=== PATIENT | female | born 1945 | race American Indian/Alaskan Native ===

== ENCOUNTER 2018-05-06 16:07 | Inpatient (IN) | payer MEDICARE, MEDICAID ==
[2018-05-06 16:19] VITALS: BMI 18.5
--- NOTE | 2018-05-06 16:51 | ED PDOC ---
Arrival/HPI - General Chief Complaint: Hip Pain Time Seen by Provider: 05/06/18 16:29 Historian: Patient - History of Present Illness Narrative History of Present Illness (Text): 05/06/18 16:53 72 yo F w/ PMH of HTN and high cholesterol, reports that she fell out of bed last night. Patient states se does not know exactly how and why she fell, she was able to get up and back onto her bed. In the AM she called her son to bring her to the hospital, states that she mostly stayed in bed all day and waited for him to bring her to the ER, she states that she was able to get up and ambulate through her home using furniture to grab on to. She is c/o low back pain and pain to the R hip and thigh. Patient reports (-) lightheadedness, headache, chest pain, SOB or palpitations prior to fall. Patient states (-) LOC , (-) headache, (-) fever, (-) URI, (-) chest pain, (-) dyspnea, (-) abdominal pain, (-) vomiting, (-) diarrhea, (-) syncope, (-) GI bleeding, (-) urinary symptoms. Past Medical History - Tetanus Immunization Tetanus Immunization: Unknown - Cardiac Hx Hypertension: Yes - Neurological Hx Dementia: Yes - Psychiatric Hx Depression: No Hx Emotional Abuse: No Hx Physical Abuse: No Hx Substance Use: No - Past Surgical History Past Surgical History: No Previous - Suicidal Assessment Feels Threatened In Home Enviroment: No Family/Social History Family/Social History: Unknown Family HX Smoking Status: Never Smoked Hx Alcohol Use: No Hx Substance Use: No Allergies/Home Meds Allergies/Adverse Reactions: Allergies No Known Allergies Allergy (Verified 05/06/18 16:23) Home Medications: Home Meds Medication Instructions Recorded Confirmed Aricept 10 mg PO DAILY 11/27/13 01/02/14 Plavix 75 mg PO DAILY 11/27/13 01/02/14 Simvastatin 0 mg PO DAILY 11/27/13 01/02/14 amLODIPine 10 mg PO DAILY 11/27/13 01/02/14 Vitamin B Complex & Vitamin C 1 mg PO DAILY 01/02/14 01/02/14 [Strovite] Review of Systems - Review of Systems Constitutional: absent: Fatigue, Weight Change, Fevers Respiratory: absent: SOB, Cough Cardiovascular: absent: Chest Pain, Palpitations, Edema Gastrointestinal: absent: Abdominal Pain, Diarrhea, Vomiting Genitourinary Female: absent: Dysuria, Frequency Musculoskeletal: Arthralgias, Back Pain. absent: Neck Pain Skin: absent: Rash, Pruritis, Skin Lesions Neurological: absent: Headache, Dizziness Physical Exam Vital Signs Temp Pulse Resp BP Pulse Ox 05/06/18 19:01 58 L 19 179/76 H 99 05/06/18 17:59 62 17 195/99 H 98 05/06/18 16:18 98.7 F 66 16 188/101 H 96 Temperature: Afebrile Blood Pressure: Hypertensive Pulse: Regular Respiratory Rate: Normal Appearance: Positive for: Well-Appearing, Non-Toxic, Comfortable Pain Distress: Mild Mental Status: Positive for: Alert and Oriented X 3 - Systems Exam Head: Present: Atraumatic, Normocephalic Pupils: Present: PERRL Extroacular Muscles: Present: EOMI Conjunctiva: Present: Normal Mouth: Present: Moist Mucous Membranes Neck: Present: Normal Range of Motion. No: MIDLINE TENDERNESS, Paraspinal Tenderness Respiratory/Chest: Present: Clear to Auscultation, Good Air Exchange. No: Respiratory Distress, Accessory Muscle Use Cardiovascular: Present: Regular Rate and Rhythm, Normal S1, S2. No: Murmurs Abdomen: No: Tenderness, Distention, Peritoneal Signs Back: Present: Normal Inspection, Midline Tenderness (+tenderness to the L spine ) Upper Extremity: Present: Normal Inspection, Normal ROM, NORMAL PULSES, Capillary Refill < 2s. No: Cyanosis, Edema, Tenderness Lower Extremity: Present: Normal Inspection, Tenderness (+mild tenderness to the R hip amd medial R thigh with pain elicited with ROM of the R hip), Neurovascularly Intact, Capillary Refill < 2 s, Other (distal pulses weak). No : Edema Neurological: Present: GCS=15, CN II-XII Intact, Speech Normal, Motor Func Grossly Intact, Normal Sensory Function, Normal 2Pt Descrimination Skin: Present: Warm, Dry, Normal Color. No: Rashes Psychiatric: Present: Alert, Oriented x 3, Normal Insight, Normal Concentration Medical Decision Making ED Course and Treatment: 05/06/18 16:50 Plan : - IV - Labs - EKG - CXR - cleaner and trimmer - XR R hip / pelvis / femur - CT L spine EKG : SB at 58 bpm, LVH, diffuse T wave depression, which is not new and is old , present in last EKG done on 01/02/14, as read by PA. Labs reviewed : trop (-), CPK (-). XR R hip : +fracture of the R pubic ramus and R pubic symphysis, no hip fracture or dislocation, as read by PA XR R femur : +fracture of the R pubic ramus and R pubic symphysis, no hip fracture or dislocation, as read by PA CT L spine : no acute fracture of the L spine, as per radiology reading. XR results d/w patient and her family, notified of plan for need of admission. Case d/w Dr. David Zhu, agrees with plan for admission. Requesting for CT of the pelvis. Case d/w Dr. Forbes, agrees to admit the patient. 05/06/18 20:00 - Lab Interpretations Lab Results: 05/06/18 17:25 05/06/18 17:25 Lab Results 05/06/18 17:25: Blood Type O POSITIVE, Antibody Screen Negative, BBK History Checked No verified bt 05/06/18 17:25: PT 11.1, INR 1.0, APTT 37.7 H 05/06/18 17:25: Sodium 141, Potassium 4.1, Chloride 102, Carbon Dioxide 31 H, Anion Gap 12, BUN 22 H, Creatinine 0.8, Est GFR ( Amer) > 60, Est GFR ( Non-Af Amer) > 60, Random Glucose 111 H, Calcium 9.5, Total Bilirubin 0.7, AST 31, ALT 26, Alkaline Phosphatase 52, Total Creatine Kinase 98, Troponin I 0.0170 , Total Protein 7.5, Albumin 4.1, Globulin 3.4, Albumin/Globulin Ratio 1.2 05/06/18 17:25: WBC 11.3 H, RBC 4.16, Hgb 13.2, Hct 38.4, MCV 92.3, MCH 31.7 H, MCHC 34.3, RDW 13.3, Plt Count 132, MPV 10.4, Neut % (Auto) 79.8 H, Lymph % ( Auto) 10.9 L, [place] % (Auto) 8.3, Eos % (Auto) 0.2, Baso % (Auto) 0.8, Neut # ( Auto) 9.0 H, Lymph # (Auto) 1.2, [place] # (Auto) 0.9 H, Eos # (Auto) 0.0, Baso # ( Auto) 0.1 - RAD Interpretation Radiology Orders: 05/06/18 16:30 HIP MIN 2V W/ PELVIS RT [RAD] Stat 05/06/18 16:43 LUMBAR SPINE W/O CONTRAST [CT] Stat Femur Right [FEMUR MIN 2 VIEWS RT] [RAD] Stat 05/06/18 19:09 PELVIS W/O PO OR IV CONTRAST [CT] Stat - PA / [employer] / Resident Statement MD/DO has reviewed & agrees with the documentation as recorded. Disposition/Present on Arrival - Present on Arrival Any Indicators Present on Arrival: No History of DVT/PE: No History of Uncontrolled Diabetes: No Urinary Catheter: No History of Decub. Ulcer: No History Surgical Site Infection Following: None - Disposition Have Diagnosis and Disposition been Completed?: Yes Diagnosis: Pubic ramus fracture, Closed fracture of symphysis pubis Disposition Time: 19:00 Patient Plan: Admission Patient Problems: Current Active Problems Problem Status Onset Closed fracture of symphysis pubis Acute Pubic ramus fracture Acute Condition: STABLE
[2018-05-06 17:36] LABS: BASO # 0.1 K/uL (0.0-0.2); BASO % 0.8 % (0.0-2.0); EOS % 0.2 % (0.0-4.0); HEMOGLOBIN 13.2 g/dL (12.0-16.0); LYMPH # 1.2 K/uL (1.0-4.3); LYMPH % 10.9 % (20.0-40.0); MEAN CELL VOLUME 92.3 fl (81.0-99.0); MEAN CORPUSCULAR HEMOGLOBIN 31.7 pg (27.0-31.0); MEAN CORPUSCULAR HGB CONC 34.3 g/dL (33.0-37.0); MEAN PLATELET VOLUME 10.4 fl (7.2-11.7); MONO # 0.9 K/uL (0.0-0.8); MONO % 8.3 % (0.0-10.0); NEUT % 79.8 % (50.0-75.0); RBC 4.16 Mil/uL (3.80-5.20); RED CELL DISTRIBUTION WIDTH 13.3 % (11.5-14.5); WHITE BLOOD COUNT 11.3 K/uL (4.8-10.8)
[2018-05-06 17:46] LABS: ALB/GLOB RATIO 1.2 (1.0-2.1); ALBUMIN 4.1 g/dL (3.5-5.0); ALT/SGPT 26 U/L (9-52); AST/SGOT 31 U/L (14-36); BLOOD UREA NITROGEN 22 mg/dl (7-17); CALCIUM 9.5 mg/dL (8.4-10.2); GFR AFRICAN-AMERICAN > 60; GFR NON-AFRICAN AMERICAN > 60
[2018-05-06 17:47] LABS: PROTHROMBIN TIME 11.1 Seconds (9.8-13.1)
[2018-05-06 17:50] LABS: PARTIAL THROMBOPLASTIN TIME 37.7 Seconds (25.6-37.1)
--- NOTE | 2018-05-06 17:53 | RAD ---
Date of service: 05/06/2018 PROCEDURE: Right Femur Radiographs. HISTORY: pain COMPARISON: None. TECHNIQUE: AP and Lateral Radiographs of the right femur. FINDINGS: FEMUR: Normal. No fracture. Note is made of displaced fracture right superior pubic ramus, medially. There is fracture of the right pubic symphysis/ inferior pubic ramus. No left pelvic fracture appreciated. SOFT TISSUES: Normal. OTHER FINDINGS: None. IMPRESSION: Fracture right pelvic ring. No evidence of hip fracture.
--- NOTE | 2018-05-06 17:54 | RAD ---
PROCEDURE: Right Hip Radiographs. HISTORY: pain COMPARISON: None. FINDINGS: BONES: Displaced fracture right superior pubic ramus. Fracture right pubic symphysis with possible involvement of the inferior pubic ramus, medially. JOINTS: Normal. SOFT TISSUES: Normal. OTHER FINDINGS: None. IMPRESSION: Fracture right superior pubic ramus and right pubic symphysis.
--- NOTE | 2018-05-06 18:11 | CT ---
Date of service: 05/06/2018 PROCEDURE: CT Lumbar Spine without contrast HISTORY: low back pain, fall COMPARISON: None available. TECHNIQUE: Axial computed tomography images were obtained of the lumbar spine without the use of intravenous contrast. Coronal and sagittal reformatted images were created and reviewed. Radiation dose: Total exam DLP = 266.77 mGy-cm. This CT exam was performed using one or more of the following dose reduction techniques: Automated exposure control, adjustment of the mA and/or kV according to patient size, and/or use of iterative reconstruction technique. FINDINGS: VERTEBRAE: Vertebral bodies maintained in height. Normal alignment maintained. Transverse processes and posterior elements are intact. DISCS/SPINAL CANAL/NEURAL FORAMINA: L1-2: Unremarkable. L2-3: Unremarkable. L3-4: Unremarkable. L4-5: Unremarkable. L5-S1: Unremarkable. PARASPINAL SOFT TISSUES: Nonobstructing 3 mm left renal calculus. Bilateral renal vascular calcification. 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 OTHER FINDINGS: None. IMPRESSION: No evidence of fracture or degenerative disc disease. Nonobstructing 3 mm left renal calculus. 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
--- NOTE | 2018-05-07 07:10 | RAD ---
Date of service: 05/06/2018 PROCEDURE: CHEST RADIOGRAPH, 1 VIEW HISTORY: for admission COMPARISON: None available. FINDINGS: LUNGS: Clear. PLEURA: No pneumothorax or pleural fluid seen. CARDIOVASCULAR: Atherosclerotic aorta. . OSSEOUS STRUCTURES: No significant abnormalities. VISUALIZED UPPER ABDOMEN: Normal. OTHER FINDINGS: None. IMPRESSION: No active disease.
--- NOTE | 2018-05-07 07:53 | CARD ---
APPROVED REPORT Date of service: 05/06/2018 <Conclusion> Sinus bradycardia Left ventricular hypertrophy with repolarization abnormality Prolonged QT Abnormal ECG
--- NOTE | 2018-05-07 08:13 | CARD ---
APPROVED REPORT Date of service: 05/07/2018 <Conclusion> Sinus bradycardia Left ventricular hypertrophy with repolarization abnormality Abnormal ECG
--- NOTE | 2018-05-07 08:44 | CT ---
Date of service: 05/06/2018 PROCEDURE: CT Pelvis without contrast HISTORY: R pubic ramus fracture COMPARISON: None available. TECHNIQUE: Contiguous axial images of the pelvis . No intravenous or oral contrast given. Coronal and sagittal reformats generated. Radiation dose: Total exam DLP = mGy-cm. This CT exam was performed using one or more of the following dose reduction techniques: Automated exposure control, adjustment of the mA and/or kV according to patient size, and/or use of iterative reconstruction technique. FINDINGS: BLADDER: Unremarkable. No mass. REPRODUCTIVE ORGANS: Unremarkable. VISUALIZED BOWEL: Diverticulosis of the colon. PERITONEUM: Unremarkable, as visualized. No free fluid. No free air. LYMPH NODES: Unremarkable. No enlarged lymph nodes. BONES: Partially displaced fracture of the right superior pubic ramus with adjacent hyperdensity/ hemorrhagic content. Nondisplaced fracture of the right iliac bone extending to the sacroiliac joint. VASCULATURE: Unremarkable. OTHER FINDINGS: None. IMPRESSION: Partially displaced fracture of the right superior pubic ramus with adjacent hyperdensity/ hemorrhagic content. Nondisplaced fracture of the right iliac bone extending to the sacroiliac joint.
[2018-05-07 08:50] LABS: HEMOGLOBIN 13.3 g/dL (12.0-16.0); MEAN CELL VOLUME 92.3 fl (81.0-99.0); MEAN CORPUSCULAR HEMOGLOBIN 32.1 pg (27.0-31.0); MEAN CORPUSCULAR HGB CONC 34.8 g/dL (33.0-37.0); RBC 4.13 Mil/uL (3.80-5.20); RED CELL DISTRIBUTION WIDTH 13.6 % (11.5-14.5); WHITE BLOOD COUNT 8.4 K/uL (4.8-10.8)
[2018-05-07 08:52] LABS: ALB/GLOB RATIO 1.2 (1.0-2.1); ALBUMIN 3.9 g/dL (3.5-5.0); ALT/SGPT 25 U/L (9-52); AST/SGOT 30 U/L (14-36); BLOOD UREA NITROGEN 17 mg/dl (7-17); CALCIUM 9.2 mg/dL (8.4-10.2); GFR AFRICAN-AMERICAN > 60; GFR NON-AFRICAN AMERICAN > 60; HDL CHOLESTEROL 66 MG/DL (30-70)
[2018-05-07 08:59] LABS: LDL CHOLESTEROL 85 mg/dL (0-129)
[2018-05-07 09:04] LABS: T4 8.03 ug/dl (5.5-11.0)
[2018-05-07] MEDS: Multivitamin With Minerals Tab PO SCH (10:40)
--- NOTE | 2018-05-07 11:39 | CP.PCM.CON ---
History of Present Illness - History of Present Illness History of Present Illness: This 72-year-old hypertensive female who lives alone at home came to the emergency room after having fallen at home. She was on the floor for a prolonged period of time and was able to get help by calling her friends on the phone. She complains off pelvic pain but otherwise is able to move her extremities without any difficulty. She denies any history of diabetes or chest pain or myocardial infarction or symptoms of congestive cardiac failure. She quit smoking approximately 4 years back. Physical examination shows a thin built elderly female who is able to answer simple questions readily but appears slightly confused about the details of her recent past. She is able to lie virtually flat and breathe comfortably. Her respiratory rate was 16 breaths per minute and her heart rate was 70 bpm regular and her blood pressure was 164/70 mmHg. Her jugular venous pressure was not elevated and there was no edema over lower approximately. The pedal pulses were well felt. There were no carotid bruits. There was tenderness in the suprapubic and pubic area. She was able to move her extremities readily. Movement of the right leg produced hip pain. The apex was not palpable. The first and second heart sounds were normal. There was no murmur or gallop. There were no rales. Her electrocardiogram showed sinus rhythm with a pattern of left ventricular hypertrophy also confirmed by the echocardiogram which revealed significant LVH with preserved left ventricle systolic function and depressed diastolic compliance. Her lab data was noted. Pressure: Fall with fractured pubic ramus (right side), hypertension. The patient is stable from cardiovascular point of view. It appears this was not patient's post fall. If Plavix is not indicated in this patient it poses significant risk of intracranial bleeding with a fall. It should then be discontinued. Past Patient History - Tetanus Immunizations Tetanus Immunization: Unknown - Past Medical History & Family History Past Medical History?: Yes - Past Social History Smoking Status: Never Smoked - CARDIAC Hx Cardiac Disorders: Yes Hx Hypercholesterolemia: Yes Hx Hypertension: Yes - PULMONARY Hx Respiratory Disorders: No - NEUROLOGICAL Hx Neurological Disorder: Yes Hx Dementia: Yes - HEENT Hx HEENT Problems: Yes - RENAL Hx Chronic Kidney Disease: No - ENDOCRINE/METABOLIC Hx Endocrine Disorders: No - HEMATOLOGICAL/ONCOLOGICAL Hx Blood Disorders: No - INTEGUMENTARY Hx Dermatological Problems: No - MUSCULOSKELETAL/RHEUMATOLOGICAL Hx Musculoskeletal Disorders: Yes Hx Back Pain: Yes Hx Falls: Yes - GASTROINTESTINAL Hx Gastrointestinal Disorders: No - GENITOURINARY/GYNECOLOGICAL Hx Genitourinary Disorders: Yes Hx Incontinence: Yes - PSYCHIATRIC Hx Psychophysiologic Disorder: Yes (DEMENTIA) Hx Substance Use: No - SURGICAL HISTORY Hx Surgeries: No - ANESTHESIA Hx Anesthesia: No Hx Anesthesia Reactions: No Hx Malignant Hyperthermia: No Has any member of the family had a problem w/ anesthesia?: No Meds Allergies/Adverse Reactions: Allergies Allergy/AdvReac Type Severity Reaction Status Date / Time No Known Allergies Allergy Verified 05/06/18 16:23 - Medications Medications: Current Medications Amlodipine Besylate (Norvasc) 10 mg PO DAILY [facility] Last Admin: 05/07/18 10:40 Dose: 10 mg Atorvastatin Calcium (Lipitor) 10 mg PO HS [facility] Clopidogrel Bisulfate (Plavix) 75 mg PO DAILY [facility] Last Admin: 05/07/18 10:40 Dose: 75 mg Donepezil HCl (Aricept) 10 mg PO HS [facility] Hydrochlorothiazide (Microzide) 12.5 mg PO DAILY [facility] Multivitamins/Minerals (Therapeutic-M Tab) 1 tab PO DAILY [facility] Last Admin: 05/07/18 10:40 Dose: 1 tab Results - Vital Signs Recent Vital Signs: Last Vital Signs Temp 98.3 F 05/07/18 08:15 Pulse 59 L 05/07/18 10:40 Resp 18 05/07/18 08:15 BP 146/80 05/07/18 10:40 Pulse Ox 98 05/07/18 08:15 - Labs Result Diagrams: 05/07/18 07:41 05/07/18 07:41 Labs: Laboratory Results - last 24 hr 05/06/18 05/06/18 05/06/18 17:25 17:25 17:25 WBC 11.3 H RBC 4.16 Hgb 13.2 Hct 38.4 MCV 92.3 MCH 31.7 H MCHC 34.3 RDW 13.3 Plt Count 132 MPV 10.4 Neut % (Auto) 79.8 H Lymph % (Auto) 10.9 L [place] % (Auto) 8.3 Eos % (Auto) 0.2 Baso % (Auto) 0.8 Neut # (Auto) 9.0 H Lymph # (Auto) 1.2 [place] # (Auto) 0.9 H Eos # (Auto) 0.0 Baso # (Auto) 0.1 PT 11.1 INR 1.0 APTT 37.7 H Sodium 141 Potassium 4.1 Chloride 102 Carbon Dioxide 31 H Anion Gap 12 BUN 22 H Creatinine 0.8 Est GFR ( Amer) > 60 Est GFR (Non-Af Amer) > 60 Random Glucose 111 H Calcium 9.5 Total Bilirubin 0.7 AST 31 ALT 26 Alkaline Phosphatase 52 Total Creatine Kinase 98 Troponin I 0.0170 Total Protein 7.5 Albumin 4.1 Globulin 3.4 Albumin/Globulin Ratio 1.2 Triglycerides Cholesterol LDL Cholesterol Direct HDL Cholesterol Thyroxine (T4) TSH 3rd Generation Blood Type Antibody Screen BBK History Checked 05/06/18 05/07/18 05/07/18 17:25 01:04 07:41 WBC 8.4 RBC 4.13 Hgb 13.3 Hct 38.2 MCV 92.3 MCH 32.1 H MCHC 34.8 RDW 13.6 Plt Count 137 MPV Neut % (Auto) Lymph % (Auto) [place] % (Auto) Eos % (Auto) Baso % (Auto) Neut # (Auto) Lymph # (Auto) [place] # (Auto) Eos # (Auto) Baso # (Auto) PT INR APTT Sodium Potassium Chloride Carbon Dioxide Anion Gap BUN Creatinine Est GFR ( Amer) Est GFR (Non-Af Amer) Random Glucose Calcium Total Bilirubin AST ALT Alkaline Phosphatase Total Creatine Kinase Troponin I 0.0220 Total Protein Albumin Globulin Albumin/Globulin Ratio Triglycerides Cholesterol LDL Cholesterol Direct HDL Cholesterol Thyroxine (T4) TSH 3rd Generation Blood Type O POSITIVE Antibody Screen Negative BBK History Checked No verified bt 05/07/18 05/07/18 07:41 08:45 WBC RBC Hgb Hct MCV MCH MCHC RDW Plt Count MPV Neut % (Auto) Lymph % (Auto) [place] % (Auto) Eos % (Auto) Baso % (Auto) Neut # (Auto) Lymph # (Auto) [place] # (Auto) Eos # (Auto) Baso # (Auto) PT INR APTT Sodium 140 Potassium 4.1 Chloride 101 Carbon Dioxide 33 H Anion Gap 10 BUN 17 Creatinine 0.8 Est GFR ( Amer) > 60 Est GFR (Non-Af Amer) > 60 Random Glucose 96 Calcium 9.2 Total Bilirubin 1.3 AST 30 ALT 25 Alkaline Phosphatase 52 Total Creatine Kinase Troponin I 0.0210 Total Protein 7.2 Albumin 3.9 Globulin 3.3 Albumin/Globulin Ratio 1.2 Triglycerides 89 Cholesterol 198 LDL Cholesterol Direct 85 HDL Cholesterol 66 Thyroxine (T4) 8.03 TSH 3rd Generation 0.81 Blood Type Antibody Screen BBK History Checked
--- NOTE | 2018-05-07 14:43 | CP.PCM.HP ---
History of Present Illness - History of Present Illness History of Present Illness: CC: Fall/trauma. 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 Pt stated; She was trying to get out of bed to the bathroom when she fell in in the ground hitting her left side of body ( L hip, lower back, and lower L leg) . Pt came c/o of pain in these 3 sites, but grater in her L hip, described as constant , aching, moderate to severe intensity 6-8:10. Worsening symptoms: Non displaced Fx of the R Iliac bone extending to the sacroiliac joint, found in Pelvis CT. Aggravated factor: Movements/Exercise Pt denied: Fever, chills, n/v/d, abdominal pain, urinary symptoms, CP, palpitations, SOB, cough, sick contact, recent travel out of [place]. Present on Admission - Present on Admission Any Indicators Present on Admission: No Review of Systems - Constitutional Constitutional: Weakness - EENT Eyes: Requires Corrective Lenses Ears: Other (negative) Nose/Mouth/Throat: Other (negative) - Cardiovascular Cardiovascular: Other (negative) - Respiratory Respiratory: Other (negative) - Gastrointestinal Gastrointestinal: Other (negative) - Genitourinary Genitourinary: Urinary Incontinence - Musculoskeletal Musculoskeletal: Back Pain - Integumentary Integumentary: Erythema (sacrum) - Neurological Neurological: Weakness - Psychiatric Psychiatric: Memory Loss (mild) - Endocrine Endocrine: Other (negative) - Hematologic/Lymphatic Hematologic: Other (negative) Past Patient History - Tetanus Immunizations Tetanus Immunization: Unknown - Past Medical History & Family History Past Medical History?: Yes Pertinent Family History: Unknown - Past Social History Smoking Status: Never Smoked Alcohol: None Drugs: Denies Home Situation {Lives}: Alone - CARDIAC Hx Cardiac Disorders: Yes Hx Hypercholesterolemia: Yes Hx Hypertension: Yes - PULMONARY Hx Respiratory Disorders: No - NEUROLOGICAL Hx Neurological Disorder: Yes Hx Dementia: Yes - HEENT Hx HEENT Problems: Yes - RENAL Hx Chronic Kidney Disease: No - ENDOCRINE/METABOLIC Hx Endocrine Disorders: No - HEMATOLOGICAL/ONCOLOGICAL Hx Blood Disorders: No - INTEGUMENTARY Hx Dermatological Problems: No - MUSCULOSKELETAL/RHEUMATOLOGICAL Hx Musculoskeletal Disorders: Yes Hx Back Pain: Yes Hx Falls: Yes - GASTROINTESTINAL Hx Gastrointestinal Disorders: No - GENITOURINARY/GYNECOLOGICAL Hx Genitourinary Disorders: Yes Hx Incontinence: Yes - PSYCHIATRIC Hx Psychophysiologic Disorder: Yes (DEMENTIA) Hx Substance Use: No - SURGICAL HISTORY Hx Surgeries: No - ANESTHESIA Hx Anesthesia: No Hx Anesthesia Reactions: No Hx Malignant Hyperthermia: No Has any member of the family had a problem w/ anesthesia?: No Meds Allergies/Adverse Reactions: Allergies Allergy/AdvReac Type Severity Reaction Status Date / Time No Known Allergies Allergy Verified 05/06/18 16:23 Physical Exam - Constitutional Appears: No Acute Distress - Head Exam Head Exam: NORMAL INSPECTION - Eye Exam Eye Exam: PERRL - ENT Exam ENT Exam: Normal Oropharynx - Neck Exam Neck exam: Positive for: Normal Inspection - Respiratory Exam Respiratory Exam: NORMAL BREATHING PATTERN - Cardiovascular Exam Cardiovascular Exam: REGULAR RHYTHM - GI/Abdominal Exam GI & Abdominal Exam: Normal Bowel Sounds, Soft - Extremities Exam Extremities exam: Positive for: tenderness (mild R hip) Additional comments: Decreased ROM R leg 2nd to hip Fx. - Back Exam Back exam: tenderness (midline) - Neurological Exam Neurological exam: Alert, CN II-XII Intact, Oriented x3 - Psychiatric Exam Psychiatric exam: Normal Mood - Skin Skin Exam: Normal Color, Warm Results - Vital Signs Recent Vital Signs: Last Vital Signs Temp 98.3 F 05/07/18 08:15 Pulse 59 L 05/07/18 10:40 Resp 18 05/07/18 08:15 BP 146/80 05/07/18 10:40 Pulse Ox 98 05/07/18 08:15 reviewed J.PLety - Labs Result Diagrams: 05/07/18 07:41 05/07/18 07:41 Labs: Laboratory Results - last 24 hr 05/06/18 05/06/18 05/06/18 17:25 17:25 17:25 WBC 11.3 H RBC 4.16 Hgb 13.2 Hct 38.4 MCV 92.3 MCH 31.7 H MCHC 34.3 RDW 13.3 Plt Count 132 MPV 10.4 Neut % (Auto) 79.8 H Lymph % (Auto) 10.9 L Craven % (Auto) 8.3 Eos % (Auto) 0.2 Baso % (Auto) 0.8 Neut # (Auto) 9.0 H Lymph # (Auto) 1.2 Craven # (Auto) 0.9 H Eos # (Auto) 0.0 Baso # (Auto) 0.1 PT 11.1 INR 1.0 APTT 37.7 H Sodium 141 Potassium 4.1 Chloride 102 Carbon Dioxide 31 H Anion Gap 12 BUN 22 H Creatinine 0.8 Est GFR ( Amer) > 60 Est GFR (Non-Af Amer) > 60 Random Glucose 111 H Calcium 9.5 Total Bilirubin 0.7 AST 31 ALT 26 Alkaline Phosphatase 52 Total Creatine Kinase 98 Troponin I 0.0170 Total Protein 7.5 Albumin 4.1 Globulin 3.4 Albumin/Globulin Ratio 1.2 Triglycerides Cholesterol LDL Cholesterol Direct HDL Cholesterol Thyroxine (T4) TSH 3rd Generation Blood Type Antibody Screen BBK History Checked 05/06/18 05/07/18 05/07/18 17:25 01:04 07:41 WBC 8.4 RBC 4.13 Hgb 13.3 Hct 38.2 MCV 92.3 MCH 32.1 H MCHC 34.8 RDW 13.6 Plt Count 137 MPV Neut % (Auto) Lymph % (Auto) Craven % (Auto) Eos % (Auto) Baso % (Auto) Neut # (Auto) Lymph # (Auto) Craven # (Auto) Eos # (Auto) Baso # (Auto) PT INR APTT Sodium Potassium Chloride Carbon Dioxide Anion Gap BUN Creatinine Est GFR ( Amer) Est GFR (Non-Af Amer) Random Glucose Calcium Total Bilirubin AST ALT Alkaline Phosphatase Total Creatine Kinase Troponin I 0.0220 Total Protein Albumin Globulin Albumin/Globulin Ratio Triglycerides Cholesterol LDL Cholesterol Direct HDL Cholesterol Thyroxine (T4) TSH 3rd Generation Blood Type O POSITIVE Antibody Screen Negative BBK History Checked No verified bt 05/07/18 05/07/18 07:41 08:45 WBC RBC Hgb Hct MCV MCH MCHC RDW Plt Count MPV Neut % (Auto) Lymph % (Auto) Craven % (Auto) Eos % (Auto) Baso % (Auto) Neut # (Auto) Lymph # (Auto) Craven # (Auto) Eos # (Auto) Baso # (Auto) PT INR APTT Sodium 140 Potassium 4.1 Chloride 101 Carbon Dioxide 33 H Anion Gap 10 BUN 17 Creatinine 0.8 Est GFR ( Amer) > 60 Est GFR (Non-Af Amer) > 60 Random Glucose 96 Calcium 9.2 Total Bilirubin 1.3 AST 30 ALT 25 Alkaline Phosphatase 52 Total Creatine Kinase Troponin I 0.0210 Total Protein 7.2 Albumin 3.9 Globulin 3.3 Albumin/Globulin Ratio 1.2 Triglycerides 89 Cholesterol 198 LDL Cholesterol Direct 85 HDL Cholesterol 66 Thyroxine (T4) 8.03 TSH 3rd Generation 0.81 Blood Type Antibody Screen BBK History Checked reviewed J.P. - EKG Data EKG comments: reviewed J.P. - Imaging and Cardiology Chest x-ray Status: Report reviewed by me (J.P.) CT scan - pelvis Status: Report reviewed by me (J.P.) Additional comment: Hip & Pelvis X-Ray Reviewed J.P. Lumbar Spine X-Ray: Reviewed J.P. Femur X-Ray: Reviewed J.P. Echo: Reviewed J.P. Assessment & Plan (1) Acute right hip pain Status: Acute Priority: High Comment: 2nd to fx. (2) Closed fracture of symphysis pubis Status: Acute Priority: High (3) Pubic ramus fracture Status: Acute Priority: High (4) Status post fall Status: Acute Priority: High (5) Pain of multiple sites Status: Acute Priority: High (6) HTN (hypertension) Status: Chronic Priority: Medium (7) Dementia Status: Chronic Priority: Medium - Assessment and Plan (Free Text) Plan: F/U U C-S, continue Percocet, Norvasc, Microzide, Plavix and rest of Tx. Cardiology consult appreciated. - Date & Time Date: 05/07/18 Time: 13:45
--- NOTE | 2018-05-07 16:56 | CARD ---
APPROVED REPORT Date of service: 05/07/2018 EXAM: Two-dimensional and M-mode echocardiogram with Doppler and color Doppler. INDICATION Pre-Op 2D DIMENSIONS IVSd1.65 (0.7-1.1cm)LVDd3.12 (3.9-5.9cm) LVOT Diameter2.00 (1.8-2.4cm)PWd1.13 (0.7-1.1cm) LVDs1.20 (2.5-4.0cm)FS (%) 61.4 % M-Mode DIMENSIONS Left Atrium (MM)5.01 (2.5-4.0cm)Aortic Root3.45 (2.2-3.7cm) Aortic Cusp Exc.2.10 (1.5-2.0cm) Aortic Valve AoV Peak Ckljduop322.1cm/sAoV VTI31.8cmAO Peak GR.16mmHg LVOT Peak Lyefglvb071.2cm/sLVOT VTI24.37cmAO Mean GR.7mmHg RHEA (VMAX)1.94ip5KSG (VTI)1.77cm2 Mitral Valve MV E Tknlprjy63.9cm/sMV DECEL AUPS078ejPG A Aifgmygs50.4cm/s MV OKD56faM/A ratio0.7MVA (PHT)2.79cm2 TDI Lateral E' Peak V4.89cm/sE/Lateral E'14.1E/Medial E'0.0 Tricuspid Valve TR Peak Pglhiqzk446hw/sRAP YWEATHEH66mfRvXI Peak Gr.28mmHg [id number] LEFT VENTRICLE The left ventricle is normal size. There is moderate concentric left ventricular hypertrophy. Left ventricular systolic function is normal with EF 65-70%. There is normal LV segmental wall motion. Tissue Doppler imaging reveals mild left ventricular diastolic dysfunction. Transmitral Doppler flow pattern is Grade I-abnormal relaxation pattern. The left atrial pressure is mildly elevated. ATRIA Left atrium is mildly dilated. The right atrium size is normal. AORTIC VALVE The aortic valve is normal in structure. No aortic regurgitation is present. There is no aortic valvular stenosis. MITRAL VALVE The mitral valve is normal in structure. There is no mitral valve stenosis. There is physiologic mitral valve regurgitation. TRICUSPID VALVE The tricuspid valve is normal in structure. There is physiologic tricuspid valve regurgitation. Right ventricular systolic pressure is normal. There is no pulmonary hypertension. PULMONIC VALVE The pulmonary valve is normal in structure. There is physiologic pulmonic valvular regurgitation. GREAT VESSELS The aortic root is normal in size. Visualized portion of ascending aorta is normal in caliber. Pulmonary artery is normal in caliber. IVC is normal in size. PERICARDIAL EFFUSION There is no pericardial effusion. <Conclusion> There is moderate concentric left ventricular hypertrophy. Left ventricular systolic function is normal with EF 65-70%. Transmitral Doppler flow pattern is Grade I-abnormal relaxation pattern. Left atrium is mildly dilated. Right ventricular systolic pressure is normal.
[2018-05-07] MEDS: Oxycodone/Acetaminophen 5/325 mg Tab PO PRN (17:38)
[2018-05-08] MEDS: Oxycodone/Acetaminophen 5/325 mg Tab PO PRN ×2 (04:25→14:36)
[2018-05-08] MEDS: Multivitamin With Minerals Tab PO SCH (09:10)
--- NOTE | 2018-05-08 14:14 | CP.PCM.PN ---
Subjective - Date & Time of Evaluation Date of Evaluation: 05/08/18 Time of Evaluation: 10:30 - Subjective Subjective: F/U R Hip Fx. R hip and R thigh pain. Objective - Vital Signs/Intake and Output Vital Signs (last 24 hours): Temp Pulse Resp BP Pulse Ox 98.5 F 60 19 133/76 95 05/08/18 07:28 05/08/18 09:10 05/08/18 07:28 05/08/18 09:10 05/08/18 07:28 - Medications Medications: Current Medications Amlodipine Besylate (Norvasc) 10 mg PO DAILY [facility] Last Admin: 05/08/18 09:10 Dose: 10 mg Atorvastatin Calcium (Lipitor) 10 mg PO HS [facility] Last Admin: 05/07/18 22:09 Dose: 10 mg Clopidogrel Bisulfate (Plavix) 75 mg PO DAILY [facility] Last Admin: 05/08/18 09:10 Dose: 75 mg Donepezil HCl (Aricept) 10 mg PO HS [facility] Last Admin: 05/07/18 22:09 Dose: 10 mg Hydrochlorothiazide (Microzide) 12.5 mg PO DAILY [facility] Last Admin: 05/08/18 09:10 Dose: 12.5 mg Multivitamins/Minerals (Therapeutic-M Tab) 1 tab PO DAILY [facility] Last Admin: 05/08/18 09:10 Dose: 1 tab Oxycodone/Acetaminophen (Percocet 5/325 Mg Tab) 1 tab PO Q4 PRN PRN Reason: Pain, moderate (4-7) Stop: 05/10/18 16:55 Last Admin: 05/08/18 04:25 Dose: 1 tab - Labs Labs: 05/07/18 07:41 05/07/18 07:41 PT 11.1 Seconds (9.8-13.1) 05/06/18 17:25 INR 1.0 05/06/18 17:25 APTT 37.7 Seconds (25.6-37.1) H 05/06/18 17:25 - Constitutional Appears: No Acute Distress - Head Exam Head Exam: NORMAL INSPECTION - Eye Exam Eye Exam: PERRL - ENT Exam ENT Exam: Normal Oropharynx - Neck Exam Neck Exam: Normal Inspection - Respiratory Exam Respiratory Exam: Clear to Ausculation Bilateral - Cardiovascular Exam Cardiovascular Exam: REGULAR RHYTHM - GI/Abdominal Exam GI & Abdominal Exam: Soft, Normal Bowel Sounds - Extremities Exam Additional comments: R hip Fx, decreased ROM R leg 2nd to Fx. - Neurological Exam Neurological Exam: Alert, CN II-XII Intact, Oriented x3 - Psychiatric Exam Psychiatric exam: Normal Mood - Skin Skin Exam: Warm Assessment and Plan (1) Acute right hip pain Status: Acute (2) Closed fracture of symphysis pubis Status: Acute (3) Pubic ramus fracture Status: Acute (4) Status post fall Status: Acute (5) Pain of multiple sites Status: Acute (6) HTN (hypertension) Status: Chronic (7) Dementia Status: Chronic - Assessment and Plan (Free Text) Plan: Continue Percocet, Plavix, Lovenox, Norvasc, Lipitor and rest of Tx. Orthopedic consult appreciated.
[2018-05-09] MEDS: Oxycodone/Acetaminophen 5/325 mg Tab PO PRN ×2 (05:09→17:40)
[2018-05-09 07:56] VITALS: RESP 20
[2018-05-09] MEDS: Multivitamin With Minerals Tab PO SCH (09:41)
--- NOTE | 2018-05-09 13:06 | CP.PCM.CON ---
History of Present Illness - History of Present Illness History of Present Illness: Orthopedic consultation Patient is a 72 y/o female with PMH of dementia, HTN, hypercholesterolemia c/o right groin pain following a fall at home [address] Ngo was consulted for orthopedic evaluation. She is a poor historian but notes that she fell at home onto her right side while getting out of her bed to go to the bathroom. She denies dizziness and LOC but experienced severe pain to her right groin. She was brought to the [facility] ER by her son for evaluation. Currently her pain is mild, controlled with pain medications. The pain is intermittent, dull in quality and located at the right groin. The pain worsens with movement and alleviates with rest. She denies radiation of pain, numbness or tingling. She also denies CP/SOB/N/V/D/fever/GIBBS/dysuria/melena. Review of Systems - Review of Systems All systems: reviewed and no additional remarkable complaints except Review of Systems: as per HPI Past Patient History - Tetanus Immunizations Tetanus Immunization: Unknown - Past Medical History & Family History Past Medical History?: Yes Past Family History: Reviewed and not pertinent - Past Social History Smoking Status: Never Smoked Alcohol: None Drugs: Denies Home Situation {Lives}: Alone - CARDIAC Hx Cardiac Disorders: Yes Hx Hypercholesterolemia: Yes Hx Hypertension: Yes - PULMONARY Hx Respiratory Disorders: No - NEUROLOGICAL Hx Neurological Disorder: Yes Hx Dementia: Yes - HEENT Hx HEENT Problems: No - RENAL Hx Chronic Kidney Disease: No - ENDOCRINE/METABOLIC Hx Endocrine Disorders: No - HEMATOLOGICAL/ONCOLOGICAL Hx Blood Disorders: No - INTEGUMENTARY Hx Dermatological Problems: No - MUSCULOSKELETAL/RHEUMATOLOGICAL Hx Musculoskeletal Disorders: Yes Hx Back Pain: Yes Hx Falls: Yes - GASTROINTESTINAL Hx Gastrointestinal Disorders: No - GENITOURINARY/GYNECOLOGICAL Hx Genitourinary Disorders: Yes Hx Incontinence: Yes - PSYCHIATRIC Hx Psychophysiologic Disorder: Yes (DEMENTIA) Hx Substance Use: No - SURGICAL HISTORY Hx Surgeries: No - ANESTHESIA Hx Anesthesia: No Hx Anesthesia Reactions: No Hx Malignant Hyperthermia: No Has any member of the family had a problem w/ anesthesia?: No Meds Home Medications: Home Medication List Medication Instructions Recorded Confirmed Type Enoxaparin [Lovenox] 40 mg SC DAILY syr 05/09/18 Rx hydroCHLOROthiazide [Microzide] 12.5 mg PO DAILY cap 05/09/18 Rx oxyCODONE/Acetaminophen [Percocet 1 tab PO Q4 PRN #5 tab 05/09/18 Rx 5/325 mg Tab] Allergies/Adverse Reactions: Allergies Allergy/AdvReac Type Severity Reaction Status Date / Time No Known Allergies Allergy Verified 05/09/18 18:04 - Medications Medications: Current Medications Amlodipine Besylate (Norvasc) 10 mg PO DAILY [facility] Last Admin: 05/09/18 09:41 Dose: 10 mg Atorvastatin Calcium (Lipitor) 10 mg PO [facility] Last Admin: 05/08/18 21:28 Dose: 10 mg Clopidogrel Bisulfate (Plavix) 75 mg PO DAILY [facility] Last Admin: 05/09/18 09:41 Dose: 75 mg Donepezil HCl (Aricept) 10 mg PO [facility] Last Admin: 05/08/18 21:28 Dose: 10 mg Hydrochlorothiazide (Microzide) 12.5 mg PO DAILY [facility] Last Admin: 05/09/18 09:40 Dose: 12.5 mg Multivitamins/Minerals (Therapeutic-M Tab) 1 tab PO DAILY [facility] Last Admin: 05/09/18 09:41 Dose: 1 tab Oxycodone/Acetaminophen (Percocet 5/325 Mg Tab) 1 tab PO Q4 PRN PRN Reason: Pain, moderate (4-7) Stop: 05/10/18 16:55 Last Admin: 05/09/18 05:09 Dose: 1 tab Physical Exam - Constitutional Appears: Well, No Acute Distress - Head Exam Head Exam: ATRAUMATIC, NORMOCEPHALIC - Eye Exam Eye Exam: EOMI, Normal appearance, PERRL - ENT Exam ENT Exam: Mucous Membranes Moist - Respiratory Exam Respiratory Exam: Clear to Auscultation Bilateral, NORMAL BREATHING PATTERN - Cardiovascular Exam Cardiovascular Exam: REGULAR RHYTHM - GI/Abdominal Exam GI & Abdominal Exam: Normal Bowel Sounds, Soft - Extremities Exam Additional comments: Right hip: lateral hip and groin tenderness ROM restricted secondary to pain sensation intact SP/DP/TN motor intact EHL/FHL/TA/G pedal pulses intact comps soft/NT Left hip: no tenderness FROM sensation intact SP/DP/TN motor intact EHL/FHL/TA/G pedal pulses intact comps soft/NT - Neurological Exam Neurological exam: Alert Additional comments: oriented to person and place. not oriented to time - Psychiatric Exam Psychiatric exam: Normal Affect, Normal Mood - Skin Skin Exam: Normal Color, Warm Results - Vital Signs Recent Vital Signs: Last Vital Signs Temp 98.5 F 05/09/18 07:55 Pulse 62 05/09/18 09:41 Resp 20 05/09/18 07:55 BP 147/80 05/09/18 09:41 Pulse Ox 97 05/09/18 07:55 - Labs Result Diagrams: 05/07/18 07:41 05/07/18 07:41 Assessment & Plan (1) Pubic ramus fracture Assessment and Plan: Patient is a 72 y/o female with a displaced R superior pubic ramus fracture and ND R iliac bone fracture -pain control -PT/OT NWB RLE -DVT ppx, recommend IVC filter -orthopedically stable to d/c to rehab -above d/w Dr. Ngo in agreement Status: Acute Priority: High Radiology Interpretation - Notes: Notes:: Accession No. : [id number] Patient Name / ID : STARLA PRINCE / [id number] Exam Date : 05/06/2018 16:43:25 ( Approved ) Study Comment : Sex / Age : F / 72Y Creator : David Menendez MD Dictator : David Menendez MD Club Steward : Carding Supervisor : David Menendez MD Approver2 : Report Date : 05/06/2018 17:52:25 My Comment : PROCEDURE: Right Hip Radiographs. HISTORY: pain COMPARISON: None. FINDINGS: BONES: Displaced fracture right superior pubic ramus. Fracture right pubic symphysis with possible involvement of the inferior pubic ramus, medially. JOINTS: Normal. SOFT TISSUES: Normal. OTHER FINDINGS: None. IMPRESSION: Fracture right superior pubic ramus and right pubic symphysis. - Radiology Interpretation #2 Interpretation: Accession No. : [id number] Patient Name / ID : STARLA PRINCE / [id number] Exam Date : 05/06/2018 19:40:45 ( Approved ) Study Comment : Sex / Age : F / 72Y Creator : Alonzo Macias MD Dictator : Alonzo Macias MD Club Steward : Carding Supervisor : Alonzo Macias MD Approver2 : Report Date : 05/07/2018 08:43:32 My Comment : Date of service: 05/06/2018 PROCEDURE: CT Pelvis without contrast HISTORY: R pubic ramus fracture COMPARISON: None available. TECHNIQUE: Contiguous axial images of the pelvis . No intravenous or oral contrast given. Coronal and sagittal reformats generated. Radiation dose: Total exam DLP = mGy-cm. This CT exam was performed using one or more of the following dose reduction techniques: Automated exposure control, adjustment of the mA and/or kV according to patient size, and/or use of iterative reconstruction technique. FINDINGS: BLADDER: Unremarkable. No mass. REPRODUCTIVE ORGANS: Unremarkable. VISUALIZED BOWEL: Diverticulosis of the colon. PERITONEUM: Unremarkable, as visualized. No free fluid. No free air. LYMPH NODES: Unremarkable. No enlarged lymph nodes. BONES: Partially displaced fracture of the right superior pubic ramus with adjacent hyperdensity/ hemorrhagic content. Nondisplaced fracture of the right iliac bone extending to the sacroiliac joint. VASCULATURE: Unremarkable. OTHER FINDINGS: None. IMPRESSION: Partially displaced fracture of the right superior pubic ramus with adjacent hyperdensity/ hemorrhagic content. Nondisplaced fracture of the right iliac bone extending to the sacroiliac joint.
--- NOTE | 2018-05-09 13:44 | CP.PCM.PN ---
Subjective - Date & Time of Evaluation Date of Evaluation: 05/09/18 Time of Evaluation: 13:30 Objective - Vital Signs/Intake and Output Vital Signs (last 24 hours): Temp Pulse Resp BP Pulse Ox 98.5 F 62 20 147/80 97 05/09/18 07:55 05/09/18 09:41 05/09/18 07:55 05/09/18 09:41 05/09/18 07:55 - Medications Medications: Current Medications Amlodipine Besylate (Norvasc) 10 mg PO DAILY [facility] Last Admin: 05/09/18 09:41 Dose: 10 mg Atorvastatin Calcium (Lipitor) 10 mg PO HS [facility] Last Admin: 05/08/18 21:28 Dose: 10 mg Clopidogrel Bisulfate (Plavix) 75 mg PO DAILY [facility] Last Admin: 05/09/18 09:41 Dose: 75 mg Donepezil HCl (Aricept) 10 mg PO HS [facility] Last Admin: 05/08/18 21:28 Dose: 10 mg Enoxaparin Sodium (Lovenox) 40 mg SC DAILY [facility] PRN Reason: Protocol Hydrochlorothiazide (Microzide) 12.5 mg PO DAILY [facility] Last Admin: 05/09/18 09:40 Dose: 12.5 mg Multivitamins/Minerals (Therapeutic-M Tab) 1 tab PO DAILY [facility] Last Admin: 05/09/18 09:41 Dose: 1 tab Oxycodone/Acetaminophen (Percocet 5/325 Mg Tab) 1 tab PO Q4 PRN PRN Reason: Pain, moderate (4-7) Stop: 05/10/18 16:55 Last Admin: 05/09/18 05:09 Dose: 1 tab - Labs Labs: 05/07/18 07:41 05/07/18 07:41 PT 11.1 Seconds (9.8-13.1) 05/06/18 17:25 INR 1.0 05/06/18 17:25 APTT 37.7 Seconds (25.6-37.1) H 05/06/18 17:25 - Constitutional Appears: No Acute Distress - Head Exam Head Exam: NORMAL INSPECTION - Eye Exam Eye Exam: PERRL - ENT Exam ENT Exam: Normal Exam - Neck Exam Neck Exam: Normal Inspection - Respiratory Exam Respiratory Exam: NORMAL BREATHING PATTERN - Cardiovascular Exam Cardiovascular Exam: REGULAR RHYTHM - GI/Abdominal Exam GI & Abdominal Exam: Soft, Normal Bowel Sounds - Extremities Exam Extremities Exam: Tenderness (mild R hip) Additional comments: Decreased ROM R leg 2nd to Fx. - Neurological Exam Neurological Exam: Alert, CN II-XII Intact, Oriented x3 - Psychiatric Exam Psychiatric exam: Normal Mood - Skin Skin Exam: Normal Color, Warm Assessment and Plan (1) Acute right hip pain Status: Acute (2) Closed fracture of symphysis pubis Status: Acute (3) Pubic ramus fracture Status: Acute (4) Status post fall Status: Acute (5) Pain of multiple sites Status: Acute (6) HTN (hypertension) Status: Chronic (7) Dementia Status: Chronic
[2018-05-09] MEDS ORDERED: Enoxaparin 40 mg Syringe SC SCH (15:00)
[2018-05-09 16:06] VITALS: BP 169/83; PULSE 81; TEMP 98.3; O2SAT 96
--- NOTE | 2018-05-09 16:06 | US ---
Date of service: 05/09/2018 PROCEDURE: Bilateral lower extremity venous duplex Doppler. HISTORY: R/O DVT COMPARISON: None available. TECHNIQUE: Bilateral common femoral, superficial femoral, popliteal and posterior tibial veins were evaluated. Flow was assessed with color Doppler, compressibility, assessment of phasic flow and augmentation response. FINDINGS: COMMON FEMORAL VEIN: Right CFV: Unremarkable. Left CFV: Unremarkable. SUPERFICIAL FEMORAL VEIN: Right SFV: Unremarkable. Left SFV: Unremarkable. POPLITEAL VEIN: Right Popliteal: Unremarkable. Left Popliteal: Unremarkable. POSTERIOR TIBIAL VEIN: Right PTV: Unremarkable. Left PTV: Unremarkable. OTHER FINDINGS: None. IMPRESSION: No evidence of deep venous thrombosis.
--- NOTE | 2018-05-09 20:47 | CP.PCM.DIS ---
Provider - Provider Date of Admission: 05/06/18 19:18 Attending physician: Tan Forbes MD Diagnosis - Discharge Diagnosis (1) Acute right hip pain Status: Acute Priority: High (2) Closed fracture of symphysis pubis Status: Acute Priority: High (3) Pubic ramus fracture Status: Acute Priority: High (4) Status post fall Status: Acute Priority: High (5) Pain of multiple sites Status: Acute Priority: High (6) HTN (hypertension) Status: Chronic Priority: Medium (7) Dementia Status: Chronic Priority: Medium Hospital Course - Lab Results Lab Results: Most Recent Lab Values WBC 8.4 K/uL (4.8-10.8) 05/07/18 07:41 RBC 4.13 Mil/uL (3.80-5.20) 05/07/18 07:41 Hgb 13.3 g/dL (12.0-16.0) 05/07/18 07:41 Hct 38.2 % (34.0-47.0) 05/07/18 07:41 MCV 92.3 fl (81.0-99.0) 05/07/18 07:41 MCH 32.1 pg (27.0-31.0) H 05/07/18 07:41 MCHC 34.8 g/dL (33.0-37.0) 05/07/18 07:41 RDW 13.6 % (11.5-14.5) 05/07/18 07:41 Plt Count 137 K/uL (130-400) 05/07/18 07:41 MPV 10.4 fl (7.2-11.7) 05/06/18 17:25 Neut % (Auto) 79.8 % (50.0-75.0) H 05/06/18 17:25 Lymph % (Auto) 10.9 % (20.0-40.0) L 05/06/18 17:25 [place]utherford % (Auto) 8.3 % (0.0-10.0) 05/06/18 17:25 Eos % (Auto) 0.2 % (0.0-4.0) 05/06/18 17:25 Baso % (Auto) 0.8 % (0.0-2.0) 05/06/18 17:25 Neut # (Auto) 9.0 K/uL (1.8-7.0) H 05/06/18 17:25 Lymph # (Auto) 1.2 K/uL (1.0-4.3) 05/06/18 17:25 Rutherford # (Auto) 0.9 K/uL (0.0-0.8) H 05/06/18 17:25 Eos # (Auto) 0.0 K/uL (0.0-0.7) 05/06/18 17:25 Baso # (Auto) 0.1 K/uL (0.0-0.2) 05/06/18 17:25 PT 11.1 Seconds (9.8-13.1) 05/06/18 17:25 INR 1.0 05/06/18 17:25 APTT 37.7 Seconds (25.6-37.1) H 05/06/18 17:25 Sodium 140 mmol/l (132-148) 05/07/18 07:41 Potassium 4.1 MMOL/L (3.6-5.0) 05/07/18 07:41 Chloride 101 mmol/L (98-107) 05/07/18 07:41 Carbon Dioxide 33 mmol/L (22-30) H 05/07/18 07:41 Anion Gap 10 (10-20) 05/07/18 07:41 BUN 17 mg/dl (7-17) 05/07/18 07:41 Creatinine 0.8 mg/dl (0.7-1.2) 05/07/18 07:41 Est GFR ( Amer) > 60 05/07/18 07:41 Est GFR (Non-Af Amer) > 60 05/07/18 07:41 Random Glucose 96 mg/dL (65-105) 05/07/18 07:41 Calcium 9.2 mg/dL (8.4-10.2) 05/07/18 07:41 Total Bilirubin 1.3 mg/dl (0.2-1.3) 05/07/18 07:41 AST 30 U/L (14-36) 05/07/18 07:41 ALT 25 U/L (9-52) 05/07/18 07:41 Alkaline Phosphatase 52 U/L (38-126) 05/07/18 07:41 Total Creatine Kinase 98 U/L (30-135) 05/06/18 17:25 Troponin I 0.0230 ng/mL (0.00-0.120) 05/07/18 16:44 Total Protein 7.2 G/DL (6.3-8.2) 05/07/18 07:41 Albumin 3.9 g/dL (3.5-5.0) 05/07/18 07:41 Globulin 3.3 gm/dL (2.2-3.9) 05/07/18 07:41 Albumin/Globulin Ratio 1.2 (1.0-2.1) 05/07/18 07:41 Triglycerides 89 mg/DL (0-149) 05/07/18 07:41 Cholesterol 198 mg/dL (0-199) 05/07/18 07:41 LDL Cholesterol Direct 85 mg/dL (0-129) 05/07/18 07:41 HDL Cholesterol 66 MG/DL (30-70) 05/07/18 07:41 Thyroxine (T4) 8.03 ug/dl (5.5-11.0) 05/07/18 07:41 TSH 3rd Generation 0.81 mIU/ML (0.46-4.68) 05/07/18 07:41 Blood Type O POSITIVE 05/06/18 17:25 Antibody Screen Negative 05/06/18 17:25 BBK History Checked No verified bt 05/06/18 17:25 Discharge Exam - Head Exam Head Exam: ATRAUMATIC, NORMOCEPHALIC Discharge Plan - Follow Up Plan Condition: STABLE Disposition: TRANSITIONAL CARE UNIT Instructions: Preventing Falls in the Older Adult, Hip Fracture (DC) Additional Instructions: Non weight bearing on the rt. lower extremities. Referrals: Norm Rob MD [Staff Provider] - Arash Barber MD [Staff Provider] -
== END 2018-05-09 18:05 | DRG 536 ==
LOC: H.ER 16:07 → H.ERHOLD 19:18 → H.MEDSURG1 22:40
PROVIDERS: ADMIT Internal Medicine Pulmonary Disease; ATTEND Internal Medicine Pulmonary Disease
DX: S32.511A Fracture of superior rim of right pubis, initial encounter for closed fracture (principal); S32.591A Other specified fracture of right pubis, initial encounter for closed fracture; E78.00 Pure hypercholesterolemia, unspecified; F03.90 Unspecified dementia, unspecified severity, without behavioral disturbance, psychotic disturbance, mood disturbance, and anxiety; W06.XXXA Fall from bed, initial encounter; Z87.891 Personal history of nicotine dependence; I10 Essential (primary) hypertension; S32.301A Unspecified fracture of right ilium, initial encounter for closed fracture; Y92.009 Unspecified place in unspecified non-institutional (private) residence as the place of occurrence of the external cause

== ENCOUNTER 2018-05-09 17:23 | Inpatient (IN) | payer OTHER, MEDICAID ==
[2018-05-09 18:14] VITALS: BMI 19.3
[2018-05-09 20:18] VITALS: RESP 20
[2018-05-09] MEDS ORDERED: SIMVASTATIN 20 MG PO SCH (22:00)
[2018-05-10] MEDS: Oxycodone/Acetaminophen 5/325 mg Tab PO PRN (06:21)
[2018-05-10] MEDS: Enoxaparin 40 mg Syringe SC SCH (09:08)
[2018-05-10] MEDS: Multivitamin With Minerals Tab PO SCH (09:10)
--- NOTE | 2018-05-10 13:41 | CP.PCM.HP ---
History of Present Illness - History of Present Illness History of Present Illness: R Hip pain 2nd to R pubic ramus and R Iliac bone Fx. 72 y/o F, Hx dementia, and living alone in a 3rd floor walk up, came on to [facility] to be evaluated for s/p fall at home, c/o of R hip pain, low back, R leg. on evaluation, Pt was found with R pubic ramus Fx and R Iliac bone Fx , after mild improvement on 03/10/18, Pt was transferred to TCU due to generalized weakness and pain in R hip that lead to difficulty ambulation, bed mobility and transfers. Present on Admission - Present on Admission Any Indicators Present on Admission: No Review of Systems - Constitutional Constitutional: Weakness - EENT Eyes: Requires Corrective Lenses Ears: Other (negative) Nose/Mouth/Throat: Other (negative) - Cardiovascular Cardiovascular: Other (negative) - Respiratory Respiratory: Other (negative) - Gastrointestinal Gastrointestinal: Other (negative) - Genitourinary Genitourinary: Urinary Incontinence - Musculoskeletal Musculoskeletal: Back Pain, Radiating Pain into Limb, Other (Pelvis pain) - Integumentary Integumentary: Other (negative) - Neurological Neurological: Weakness - Psychiatric Psychiatric: Memory Loss (mild) - Endocrine Endocrine: Other (negative) - Hematologic/Lymphatic Hematologic: Other (negative) Past Patient History - Tetanus Immunizations Tetanus Immunization: Unknown - Past Medical History & Family History Past Medical History?: Yes Pertinent Family History: Unknown - Past Social History Smoking Status: Never Smoked Alcohol: None Drugs: Denies Home Situation {Lives}: Alone - CARDIAC Hx Cardiac Disorders: Yes Hx Hypercholesterolemia: Yes Hx Hypertension: Yes - PULMONARY Hx Respiratory Disorders: No - NEUROLOGICAL Hx Neurological Disorder: Yes Hx Dementia: Yes - HEENT Hx HEENT Problems: Yes Hx Cataracts: Yes - RENAL Hx Chronic Kidney Disease: No - ENDOCRINE/METABOLIC Hx Endocrine Disorders: No - HEMATOLOGICAL/ONCOLOGICAL Hx Blood Disorders: No - INTEGUMENTARY Hx Dermatological Problems: No - MUSCULOSKELETAL/RHEUMATOLOGICAL Hx Musculoskeletal Disorders: Yes Hx Back Pain: Yes Hx Falls: Yes - GASTROINTESTINAL Hx Gastrointestinal Disorders: No - GENITOURINARY/GYNECOLOGICAL Hx Genitourinary Disorders: Yes Hx Incontinence: Yes - PSYCHIATRIC Hx Psychophysiologic Disorder: Yes (DEMENTIA) - SURGICAL HISTORY Hx Surgeries: No - ANESTHESIA Hx Anesthesia: No Hx Anesthesia Reactions: No Hx Malignant Hyperthermia: No Meds Allergies/Adverse Reactions: Allergies Allergy/AdvReac Type Severity Reaction Status Date / Time No Known Allergies Allergy Verified 05/09/18 18:04 Physical Exam - Constitutional Appears: Confused - Eye Exam Eye Exam: PERRL - ENT Exam ENT Exam: Normal Exam - Neck Exam Neck exam: Positive for: Normal Inspection - Respiratory Exam Respiratory Exam: NORMAL BREATHING PATTERN - Cardiovascular Exam Cardiovascular Exam: REGULAR RHYTHM - GI/Abdominal Exam GI & Abdominal Exam: Normal Bowel Sounds, Soft - Extremities Exam Extremities exam: Positive for: tenderness ( R hip ) Additional comments: Decreased ROM RLE 2nd to Pelvic- R Hip tenderness - Back Exam Back exam: tenderness (midline) Additional comments: Kyphosis - Neurological Exam Neurological exam: Alert Additional comments: Ox2, forgetful, no focal motor/sensory deficit - Psychiatric Exam Psychiatric exam: Normal Mood - Skin Skin Exam: Normal Color, Warm Results - Vital Signs Recent Vital Signs: Last Vital Signs Temp 99.0 F 05/10/18 09:11 Pulse 72 05/10/18 10:17 Resp 20 05/10/18 09:11 BP 144/99 H 05/10/18 09:11 Pulse Ox 96 05/10/18 10:17 reviewed J.P. - Labs Labs: reviewed J.P. Assessment & Plan (1) Fracture of right superior pubic ramus Status: Acute Priority: High (2) Closed fracture of right iliac wing Status: Acute (3) Status post fall Status: Acute Priority: High (4) Generalized weakness Status: Acute Priority: High (5) Dementia Status: Chronic Priority: Medium (6) HTN (hypertension) Status: Chronic Priority: Medium (7) Hypercholesteremia Status: Chronic Priority: Medium - Assessment and Plan (Free Text) Plan: Continue Percocet, Plavix, Lovenox, Norvas, Microzide, Lipitor, Aricepy and rest of Tx, PT, OT, Physiatry and Orthopedic consult. - Date & Time Date: 05/10/18 Time: 10:50
[2018-05-11] MEDS: Enoxaparin 40 mg Syringe SC SCH (08:40)
[2018-05-11] MEDS: Multivitamin With Minerals Tab PO SCH (08:40)
--- NOTE | 2018-05-11 16:05 | CP.PCM.PN ---
Subjective - Date & Time of Evaluation Date of Evaluation: 05/11/18 Time of Evaluation: 12:40 - Subjective Subjective: F/U Fx. R Pubic ramus, R iliac wind pain R Hip, R thigh with movement , not at rest Objective - Vital Signs/Intake and Output Vital Signs (last 24 hours): Temp Pulse Resp BP Pulse Ox 98.2 F 62 20 147/75 97 05/11/18 08:21 05/11/18 08:39 05/11/18 08:21 05/11/18 08:39 05/11/18 08:21 - Medications Medications: Current Medications Acetaminophen (Tylenol 325mg Tab) 650 mg PO Q4 PRN PRN Reason: Pain, moderate (4-7) Last Admin: 05/10/18 13:22 Dose: 650 mg Amlodipine Besylate (Norvasc) 10 mg PO DAILY [facility] Last Admin: 05/11/18 08:39 Dose: 10 mg Atorvastatin Calcium (Lipitor) 10 mg PO 2100 [facility] Last Admin: 05/10/18 21:14 Dose: 10 mg Clopidogrel Bisulfate (Plavix) 75 mg PO DAILY [facility] Last Admin: 05/11/18 08:40 Dose: 75 mg Docusate Sodium (Colace) 100 mg PO BID [facility] Last Admin: 05/11/18 08:38 Dose: 100 mg Donepezil HCl (Aricept) 10 mg PO HS [facility] Last Admin: 05/10/18 21:14 Dose: 10 mg Enoxaparin Sodium (Lovenox) 40 mg SC DAILY [facility] PRN Reason: Protocol Last Admin: 05/11/18 08:40 Dose: 40 mg Hydrochlorothiazide (Microzide) 12.5 mg PO DAILY [facility] Last Admin: 05/11/18 08:38 Dose: 12.5 mg Multivitamins/Minerals (Therapeutic-M Tab) 1 tab PO DAILY [facility] Last Admin: 05/11/18 08:40 Dose: 1 tab Oxycodone/Acetaminophen (Percocet 5/325 Mg Tab) 1 tab PO Q4 PRN PRN Reason: Pain, moderate (4-7) Stop: 05/12/18 19:19 Last Admin: 05/10/18 06:21 Dose: 1 tab - Constitutional Appears: No Acute Distress - Head Exam Head Exam: NORMAL INSPECTION - Eye Exam Eye Exam: PERRL - ENT Exam ENT Exam: Normal Exam - Neck Exam Neck Exam: Normal Inspection - Respiratory Exam Respiratory Exam: NORMAL BREATHING PATTERN - Cardiovascular Exam Cardiovascular Exam: REGULAR RHYTHM - GI/Abdominal Exam GI & Abdominal Exam: Soft, Normal Bowel Sounds - Extremities Exam Additional comments: Decreased ROM R leg - Back Exam Additional comments: Kyphosis - Neurological Exam Neurological Exam: Awake Additional comments: Ox2, confused, verbally responsive. - Psychiatric Exam Psychiatric exam: Normal Mood - Skin Skin Exam: Normal Color, Warm Assessment and Plan (1) Fracture of right superior pubic ramus Status: Acute (2) Closed fracture of right iliac wing Status: Acute (3) Status post fall Status: Acute (4) Generalized weakness Status: Acute (5) Dementia Status: Chronic (6) HTN (hypertension) Status: Chronic (7) Hypercholesteremia Status: Chronic - Assessment and Plan (Free Text) Plan: continue Lovenox, Plavix, Percocet, PT and rest of treatment
[2018-05-12] MEDS: Oxycodone/Acetaminophen 5/325 mg Tab PO PRN (06:41)
[2018-05-12] MEDS: Enoxaparin 40 mg Syringe SC SCH (08:35)
[2018-05-12] MEDS: Multivitamin With Minerals Tab PO SCH (08:35)
--- NOTE | 2018-05-12 10:16 | CP.PCM.PN ---
Subjective - Date & Time of Evaluation Date of Evaluation: 05/12/18 Time of Evaluation: 07:30 - Subjective Subjective: Patient seen and examined at bedside comfortable. Pain improved. No new complaints. Objective - Vital Signs/Intake and Output Vital Signs (last 24 hours): Temp Pulse Resp BP Pulse Ox 98.0 F 69 20 146/70 99 05/12/18 08:11 05/12/18 08:35 05/12/18 08:11 05/12/18 08:35 05/12/18 08:11 - Medications Medications: Current Medications Acetaminophen (Tylenol 325mg Tab) 650 mg PO Q4 PRN PRN Reason: Pain, moderate (4-7) Last Admin: 05/10/18 13:22 Dose: 650 mg Amlodipine Besylate (Norvasc) 10 mg PO DAILY [facility] Last Admin: 05/12/18 08:35 Dose: 10 mg Atorvastatin Calcium (Lipitor) 10 mg PO 2100 [facility] Last Admin: 05/11/18 20:59 Dose: 10 mg Clopidogrel Bisulfate (Plavix) 75 mg PO DAILY [facility] Last Admin: 05/12/18 08:35 Dose: 75 mg Docusate Sodium (Colace) 100 mg PO BID [facility] Last Admin: 05/12/18 08:35 Dose: 100 mg Donepezil HCl (Aricept) 10 mg PO HS [facility] Last Admin: 05/11/18 21:00 Dose: 10 mg Enoxaparin Sodium (Lovenox) 40 mg SC DAILY [facility] PRN Reason: Protocol Last Admin: 05/12/18 08:35 Dose: 40 mg Hydrochlorothiazide (Microzide) 12.5 mg PO DAILY [facility] Last Admin: 05/12/18 08:35 Dose: 12.5 mg Multivitamins/Minerals (Therapeutic-M Tab) 1 tab PO DAILY [facility] Last Admin: 05/12/18 08:35 Dose: 1 tab Oxycodone/Acetaminophen (Percocet 5/325 Mg Tab) 1 tab PO Q4 PRN PRN Reason: Pain, moderate (4-7) Stop: 05/12/18 19:19 Last Admin: 05/12/18 06:41 Dose: 1 tab - Extremities Exam Additional comments: Right hip: lateral hip and groin tenderness ROM restricted secondary to pain sensation intact SP/DP/TN motor intact EHL/FHL/TA/G pedal pulses intact comps soft/NT Assessment and Plan (1) Fracture of right superior pubic ramus Assessment & Plan: -pain control -PT/OT NWB RLE -DVT ppx -orthopedically stable -above d/w Dr. Ngo in agreement Status: Acute (2) Nondisplaced fracture of right ilium Status: Acute
[2018-05-12] MEDS ORDERED: Oxycodone/Acetaminophen 5/325 mg Tab PO PRN (11:57)
--- NOTE | 2018-05-12 15:45 | CP.PCM.PN ---
Subjective - Date & Time of Evaluation Date of Evaluation: 05/12/18 Time of Evaluation: 12:30 - Subjective Subjective: F/U Fx R pubic ramus, Fx R iliac wing no pain R hip at rest, pain R hip wth PT Objective - Vital Signs/Intake and Output Vital Signs (last 24 hours): Temp Pulse Resp BP Pulse Ox 98.0 F 69 20 146/70 99 05/12/18 08:11 05/12/18 08:35 05/12/18 08:11 05/12/18 08:35 05/12/18 08:11 - Medications Medications: Current Medications Acetaminophen (Tylenol 325mg Tab) 650 mg PO Q4 PRN PRN Reason: Pain, moderate (4-7) Last Admin: 05/10/18 13:22 Dose: 650 mg Amlodipine Besylate (Norvasc) 10 mg PO DAILY [facility] Last Admin: 05/12/18 08:35 Dose: 10 mg Atorvastatin Calcium (Lipitor) 10 mg PO 2100 [facility] Last Admin: 05/11/18 20:59 Dose: 10 mg Clopidogrel Bisulfate (Plavix) 75 mg PO DAILY [facility] Last Admin: 05/12/18 08:35 Dose: 75 mg Docusate Sodium (Colace) 100 mg PO BID [facility] Last Admin: 05/12/18 08:35 Dose: 100 mg Donepezil HCl (Aricept) 10 mg PO HS [facility] Last Admin: 05/11/18 21:00 Dose: 10 mg Enoxaparin Sodium (Lovenox) 40 mg SC DAILY [facility] PRN Reason: Protocol Last Admin: 05/12/18 08:35 Dose: 40 mg Hydrochlorothiazide (Microzide) 12.5 mg PO DAILY [facility] Last Admin: 05/12/18 08:35 Dose: 12.5 mg Multivitamins/Minerals (Therapeutic-M Tab) 1 tab PO DAILY [facility] Last Admin: 05/12/18 08:35 Dose: 1 tab Oxycodone/Acetaminophen (Percocet 5/325 Mg Tab) 1 tab PO Q4 PRN PRN Reason: Pain, moderate (4-7) Stop: 05/15/18 11:58 - Constitutional Appears: No Acute Distress - Head Exam Head Exam: NORMAL INSPECTION - Eye Exam Eye Exam: PERRL - ENT Exam ENT Exam: Normal Exam - Neck Exam Neck Exam: Normal Inspection - Respiratory Exam Respiratory Exam: Clear to Ausculation Bilateral - Cardiovascular Exam Cardiovascular Exam: REGULAR RHYTHM - GI/Abdominal Exam GI & Abdominal Exam: Soft, Normal Bowel Sounds - Extremities Exam Extremities Exam: Tenderness (mild R hip) Additional comments: Decreased ROM RLE 2nd Pain R Hip - Back Exam Additional comments: Kyphosis - Neurological Exam Neurological Exam: Awake Additional comments: Ox2, forgetful, no focal motor/sensory deficit - Psychiatric Exam Psychiatric exam: Normal Mood - Skin Skin Exam: Normal Color, Warm Assessment and Plan (1) Fracture of right superior pubic ramus Status: Acute (2) Closed fracture of right iliac wing Status: Acute (3) Status post fall Status: Acute (4) Generalized weakness Status: Acute (5) Dementia Status: Chronic (6) HTN (hypertension) Status: Chronic (7) Hypercholesteremia Status: Chronic - Assessment and Plan (Free Text) Plan: continue PT NWB RLE, continue Percocet, Tylenol PRN Pain, Patient on Norvasc, Microzide, Lipitor, Lovenox
[2018-05-13] MEDS: Multivitamin With Minerals Tab PO SCH (08:59)
[2018-05-13] MEDS: Enoxaparin 40 mg Syringe SC SCH (08:59)
--- NOTE | 2018-05-13 13:03 | CP.PCM.PN ---
Subjective - Date & Time of Evaluation Date of Evaluation: 05/13/18 Time of Evaluation: 10:00 - Subjective Subjective: F/U Fx R pubic ramus, Fx R iliac wing No pain R hip at rest, pain R hip with PT Objective - Vital Signs/Intake and Output Vital Signs (last 24 hours): Temp Pulse Resp BP Pulse Ox 97.5 F L 64 20 140/66 99 05/13/18 08:34 05/13/18 09:00 05/13/18 08:34 05/13/18 09:00 05/13/18 08:34 - Medications Medications: Current Medications Acetaminophen (Tylenol 325mg Tab) 650 mg PO Q4 PRN PRN Reason: Pain, moderate (4-7) Last Admin: 05/10/18 13:22 Dose: 650 mg Amlodipine Besylate (Norvasc) 10 mg PO DAILY [facility] Last Admin: 05/13/18 09:00 Dose: 10 mg Atorvastatin Calcium (Lipitor) 10 mg PO 2100 [facility] Last Admin: 05/12/18 21:45 Dose: 10 mg Clopidogrel Bisulfate (Plavix) 75 mg PO DAILY [facility] Last Admin: 05/13/18 09:01 Dose: 75 mg Docusate Sodium (Colace) 100 mg PO BID [facility] Last Admin: 05/13/18 08:59 Dose: 100 mg Donepezil HCl (Aricept) 10 mg PO HS [facility] Last Admin: 05/12/18 21:45 Dose: 10 mg Enoxaparin Sodium (Lovenox) 40 mg SC DAILY [facility] PRN Reason: Protocol Last Admin: 05/13/18 08:59 Dose: 40 mg Hydrochlorothiazide (Microzide) 12.5 mg PO DAILY [facility] Last Admin: 05/13/18 09:02 Dose: 12.5 mg Multivitamins/Minerals (Therapeutic-M Tab) 1 tab PO DAILY [facility] Last Admin: 05/13/18 08:59 Dose: 1 tab Oxycodone/Acetaminophen (Percocet 5/325 Mg Tab) 1 tab PO Q4 PRN PRN Reason: Pain, moderate (4-7) Stop: 05/15/18 11:58 Last Admin: 05/13/18 08:58 Dose: 1 tab - Constitutional Appears: No Acute Distress - Head Exam Head Exam: NORMAL INSPECTION - Eye Exam Eye Exam: PERRL - ENT Exam ENT Exam: Normal Exam - Neck Exam Neck Exam: Normal Inspection - Respiratory Exam Respiratory Exam: Clear to Ausculation Bilateral - Cardiovascular Exam Cardiovascular Exam: REGULAR RHYTHM - GI/Abdominal Exam GI & Abdominal Exam: Soft, Normal Bowel Sounds - Extremities Exam Extremities Exam: Tenderness (mild R hip) Additional comments: Decreased ROM R leg 2nd to Fx. - Back Exam Back Exam: tenderness (midline) Additional comments: Kyphosis - Neurological Exam Neurological Exam: Awake Additional comments: Ox2, forgetful. - Psychiatric Exam Psychiatric exam: Normal Mood - Skin Skin Exam: Normal Color, Warm Assessment and Plan (1) Fracture of right superior pubic ramus Status: Acute (2) Closed fracture of right iliac wing Status: Acute (3) Status post fall Status: Acute (4) Generalized weakness Status: Acute (5) Dementia Status: Chronic (6) HTN (hypertension) Status: Chronic (7) Hypercholesteremia Status: Chronic - Assessment and Plan (Free Text) Plan: continue PT, OT NWB RLE, Percocet, Tylenol and rest of treatment
--- NOTE | 2018-05-13 17:06 | CP.PCM.CON ---
History of Present Illness - History of Present Illness History of Present Illness: Dr Bowles PMR consultation on Chuyita Lange, born 1945, who has been admitted to the [facility] TCU for NATALIIA following a fall at home out of bed with stable pelvic fracture. No surgical treatment necessary. Pain is controlled. She was independent [employer] Review of Systems - Constitutional Constitutional: absent: Anorexia, Chills - EENT Eyes: absent: Change in Vision Ears: absent: Ear Discharge, Ear Pain Nose/Mouth/Throat: absent: Nasal Congestion - Cardiovascular Cardiovascular: absent: Chest Pain - Respiratory Respiratory: absent: Dyspnea, Hemoptysis - Gastrointestinal Gastrointestinal: Constipation (mild). absent: Belching - Integumentary Integumentary: absent: Bleeding Lesions - Neurological Neurological: absent: Abnormal Hearing, Abnormal Movements - Hematologic/Lymphatic Hematologic: absent: Easy Bruising Past Patient History - Tetanus Immunizations Tetanus Immunization: Unknown - Past Medical History & Family History Past Medical History?: Yes - Past Social History Smoking Status: Never Smoked Alcohol: None Drugs: Denies Home Situation {Lives}: Alone (3rd floor walk up) - CARDIAC Hx Hypercholesterolemia: Yes Hx Hypertension: Yes - PULMONARY Hx Respiratory Disorders: No - NEUROLOGICAL Hx Neurological Disorder: Yes Hx Dementia: Yes - HEENT Hx HEENT Problems: Yes Hx Cataracts: Yes - RENAL Hx Chronic Kidney Disease: No - ENDOCRINE/METABOLIC Hx Endocrine Disorders: No - HEMATOLOGICAL/ONCOLOGICAL Hx Blood Disorders: No - INTEGUMENTARY Hx Dermatological Problems: No - MUSCULOSKELETAL/RHEUMATOLOGICAL Hx Musculoskeletal Disorders: Yes Hx Back Pain: Yes Hx Falls: Yes - GASTROINTESTINAL Hx Gastrointestinal Disorders: No - GENITOURINARY/GYNECOLOGICAL Hx Genitourinary Disorders: Yes Hx Incontinence: Yes - PSYCHIATRIC Hx Psychophysiologic Disorder: Yes (DEMENTIA) - SURGICAL HISTORY Hx Surgeries: No - ANESTHESIA Hx Anesthesia: No Hx Anesthesia Reactions: No Hx Malignant Hyperthermia: No Meds Allergies/Adverse Reactions: Allergies Allergy/AdvReac Type Severity Reaction Status Date / Time No Known Allergies Allergy Verified 05/09/18 18:04 - Medications Medications: Current Medications Acetaminophen (Tylenol 325mg Tab) 650 mg PO Q4 PRN PRN Reason: Pain, moderate (4-7) Last Admin: 05/10/18 13:22 Dose: 650 mg Amlodipine Besylate (Norvasc) 10 mg PO DAILY [facility] Last Admin: 05/13/18 09:00 Dose: 10 mg Atorvastatin Calcium (Lipitor) 10 mg PO 2100 [facility] Last Admin: 05/12/18 21:45 Dose: 10 mg Clopidogrel Bisulfate (Plavix) 75 mg PO DAILY [facility] Last Admin: 05/13/18 09:01 Dose: 75 mg Docusate Sodium (Colace) 100 mg PO BID [facility] Last Admin: 05/13/18 16:38 Dose: 100 mg Donepezil HCl (Aricept) 10 mg PO HS [facility] Last Admin: 05/12/18 21:45 Dose: 10 mg Enoxaparin Sodium (Lovenox) 40 mg SC DAILY [facility] PRN Reason: Protocol Last Admin: 05/13/18 08:59 Dose: 40 mg Hydrochlorothiazide (Microzide) 12.5 mg PO DAILY [facility] Last Admin: 05/13/18 09:02 Dose: 12.5 mg Multivitamins/Minerals (Therapeutic-M Tab) 1 tab PO DAILY [facility] Last Admin: 05/13/18 08:59 Dose: 1 tab Oxycodone/Acetaminophen (Percocet 5/325 Mg Tab) 1 tab PO Q4 PRN PRN Reason: Pain, moderate (4-7) Stop: 05/15/18 11:58 Last Admin: 05/13/18 08:58 Dose: 1 tab Physical Exam - Constitutional Appears: Well, Non-toxic, No Acute Distress - Head Exam Head Exam: ATRAUMATIC, NORMAL INSPECTION, NORMOCEPHALIC - Eye Exam Eye Exam: EOMI - ENT Exam ENT Exam: Mucous Membranes Moist - Respiratory Exam Respiratory Exam: NORMAL BREATHING PATTERN - Cardiovascular Exam Cardiovascular Exam: REGULAR RHYTHM - GI/Abdominal Exam GI & Abdominal Exam: Normal Bowel Sounds - Extremities Exam Extremities exam: Positive for: full ROM. Negative for: calf tenderness - Neurological Exam Neurological exam: Alert, CN II-XII Intact, Oriented x3 - Psychiatric Exam Psychiatric exam: Normal Affect, Normal Mood - Skin Skin Exam: Warm Results - Vital Signs Recent Vital Signs: Last Vital Signs Temp 98.2 F 05/13/18 16:26 Pulse 61 05/13/18 16:26 Resp 20 05/13/18 16:26 BP 138/73 05/13/18 16:29 Pulse Ox 98 05/13/18 16:26 Assessment & Plan - Assessment and Plan (Free Text) Assessment: 72 year old female with stable pelvic fracture following a fall oob. PT/OT to continue to help increase functional independence Pain: controlled Vascular: no evidence of DVT GI: Mild doesn't want meds Patient continues to be an excellent TCU rehabilitation candidate and will have continued focused PT, OT and recreational therapy to help facilitate a safe and appropriate d/c plan
[2018-05-14] MEDS: Multivitamin With Minerals Tab PO SCH (08:50)
[2018-05-14] MEDS: Enoxaparin 40 mg Syringe SC SCH (08:50)
--- NOTE | 2018-05-14 19:35 | CP.PCM.PN ---
Subjective - Date & Time of Evaluation Date of Evaluation: 05/14/18 Time of Evaluation: 10:00 - Subjective Subjective: F/U Fx R Superior Pubic Ramous and Fx R Iliac Wing No pain R hip at rest, pain R hip with PT Objective - Vital Signs/Intake and Output Vital Signs (last 24 hours): Temp Pulse Resp BP Pulse Ox 98.4 F 73 20 140/77 97 05/14/18 15:58 05/14/18 15:58 05/14/18 15:58 05/14/18 15:58 05/14/18 15:58 - Medications Medications: Current Medications Acetaminophen (Tylenol 325mg Tab) 650 mg PO Q4 PRN PRN Reason: Pain, moderate (4-7) Last Admin: 05/10/18 13:22 Dose: 650 mg Amlodipine Besylate (Norvasc) 10 mg PO DAILY [facility] Last Admin: 05/14/18 08:51 Dose: 10 mg Atorvastatin Calcium (Lipitor) 10 mg PO 2100 [facility] Last Admin: 05/13/18 21:38 Dose: 10 mg Clopidogrel Bisulfate (Plavix) 75 mg PO DAILY [facility] Last Admin: 05/14/18 08:51 Dose: 75 mg Docusate Sodium (Colace) 100 mg PO BID [facility] Last Admin: 05/14/18 16:49 Dose: 100 mg Donepezil HCl (Aricept) 10 mg PO HS [facility] Last Admin: 05/13/18 21:34 Dose: 10 mg Enoxaparin Sodium (Lovenox) 40 mg SC DAILY [facility] PRN Reason: Protocol Last Admin: 05/14/18 08:50 Dose: 40 mg Hydrochlorothiazide (Microzide) 12.5 mg PO DAILY [facility] Last Admin: 05/14/18 08:50 Dose: 12.5 mg Multivitamins/Minerals (Therapeutic-M Tab) 1 tab PO DAILY [facility] Last Admin: 05/14/18 08:50 Dose: 1 tab Oxycodone/Acetaminophen (Percocet 5/325 Mg Tab) 1 tab PO Q4 PRN PRN Reason: Pain, moderate (4-7) Stop: 05/15/18 11:58 Last Admin: 05/13/18 08:58 Dose: 1 tab - Constitutional Appears: No Acute Distress - Head Exam Head Exam: NORMAL INSPECTION - Eye Exam Eye Exam: PERRL - ENT Exam ENT Exam: Normal Exam - Neck Exam Neck Exam: Normal Inspection - Respiratory Exam Respiratory Exam: Clear to Ausculation Bilateral - Cardiovascular Exam Cardiovascular Exam: REGULAR RHYTHM - GI/Abdominal Exam GI & Abdominal Exam: Soft, Normal Bowel Sounds - Extremities Exam Extremities Exam: Tenderness (Mild R hip) Additional comments: Decreased ROM R leg 2nd to fx. - Back Exam Back Exam: tenderness (Midline) Additional comments: Kyphosis - Neurological Exam Neurological Exam: Awake Additional comments: Ox2, forgetful - Psychiatric Exam Psychiatric exam: Normal Mood - Skin Skin Exam: Normal Color, Warm Assessment and Plan (1) Fracture of right superior pubic ramus Status: Acute (2) Closed fracture of right iliac wing Status: Acute (3) Status post fall Status: Acute (4) Generalized weakness Status: Acute (5) Dementia Status: Chronic (6) HTN (hypertension) Status: Chronic (7) Hypercholesteremia Status: Chronic - Assessment and Plan (Free Text) Plan: Continue Percocet and rest of Tx, NWB RLE, continue PT, OT
[2018-05-15 07:42] LABS: BASO # 0.1 K/uL (0.0-0.2); BASO % 0.8 % (0.0-2.0); EOS # 0.3 K/uL (0.0-0.7); EOS % 3.4 % (0.0-4.0); HEMOGLOBIN 12.2 g/dL (12.0-16.0); LYMPH # 1.6 K/uL (1.0-4.3); LYMPH % 18.9 % (20.0-40.0); MEAN CELL VOLUME 92.5 fl (81.0-99.0); MEAN CORPUSCULAR HGB CONC 34.6 g/dL (33.0-37.0); MEAN PLATELET VOLUME 9.7 fl (7.2-11.7); MONO # 0.9 K/uL (0.0-0.8); NEUT # 5.5 K/uL (1.8-7.0); NEUT % 65.9 % (50.0-75.0); RBC 3.8 Mil/uL (3.80-5.20); RED CELL DISTRIBUTION WIDTH 13.3 % (11.5-14.5); WHITE BLOOD COUNT 8.4 K/uL (4.8-10.8)
[2018-05-15 08:11] LABS: ALB/GLOB RATIO 1.1 (1.0-2.1); ALBUMIN 3.8 g/dL (3.5-5.0); ALT/SGPT 20 U/L (9-52); AST/SGOT 38 U/L (14-36); BLOOD UREA NITROGEN 25 mg/dl (7-17); CALCIUM 9.6 mg/dL (8.4-10.2); GFR AFRICAN-AMERICAN > 60; GFR NON-AFRICAN AMERICAN > 60
[2018-05-15] MEDS: Enoxaparin 40 mg Syringe SC SCH (09:59)
[2018-05-15] MEDS: Multivitamin With Minerals Tab PO SCH (10:00)
[2018-05-15] MEDS ORDERED: Oxycodone/Acetaminophen 5/325 mg Tab PO PRN (12:30)
--- NOTE | 2018-05-15 13:27 | CP.PCM.PN ---
Subjective - Date & Time of Evaluation Date of Evaluation: 05/15/18 Time of Evaluation: 12:05 - Subjective Subjective: F/U Fx R sup. Pubic Ramus, R Iliac wing Pt c/o of pain in R hip standing, no pain at resting. Objective - Vital Signs/Intake and Output Vital Signs (last 24 hours): Temp Pulse Resp BP Pulse Ox 98.1 F 61 20 121/63 97 05/15/18 08:44 05/15/18 10:00 05/15/18 08:44 05/15/18 10:00 05/15/18 08:44 - Medications Medications: Current Medications Acetaminophen (Tylenol 325mg Tab) 650 mg PO Q4 PRN PRN Reason: Pain, moderate (4-7) Last Admin: 05/15/18 06:48 Dose: 650 mg Amlodipine Besylate (Norvasc) 10 mg PO DAILY [facility] Last Admin: 05/15/18 10:00 Dose: 10 mg Atorvastatin Calcium (Lipitor) 10 mg PO 2100 [facility] Last Admin: 05/14/18 21:51 Dose: 10 mg Clopidogrel Bisulfate (Plavix) 75 mg PO DAILY [facility] Last Admin: 05/15/18 10:00 Dose: 75 mg Docusate Sodium (Colace) 100 mg PO BID [facility] Last Admin: 05/15/18 09:59 Dose: 100 mg Donepezil HCl (Aricept) 10 mg PO HS [facility] Last Admin: 05/14/18 21:51 Dose: 10 mg Enoxaparin Sodium (Lovenox) 40 mg SC DAILY [facility] PRN Reason: Protocol Last Admin: 05/15/18 09:59 Dose: 40 mg Hydrochlorothiazide (Microzide) 12.5 mg PO DAILY [facility] Last Admin: 05/15/18 10:00 Dose: 12.5 mg Multivitamins/Minerals (Therapeutic-M Tab) 1 tab PO DAILY [facility] Last Admin: 05/15/18 10:00 Dose: 1 tab Oxycodone/Acetaminophen (Percocet 5/325 Mg Tab) 1 tab PO Q4 PRN PRN Reason: Pain, severe (8-10) Stop: 05/18/18 12:31 - Labs Labs: 05/15/18 06:00 05/15/18 06:00 - Constitutional Appears: No Acute Distress - Head Exam Head Exam: NORMAL INSPECTION - Eye Exam Eye Exam: PERRL - ENT Exam ENT Exam: Normal Exam - Neck Exam Neck Exam: Normal Inspection - Respiratory Exam Respiratory Exam: Clear to Ausculation Bilateral - Cardiovascular Exam Cardiovascular Exam: REGULAR RHYTHM - GI/Abdominal Exam GI & Abdominal Exam: Soft, Normal Bowel Sounds - Extremities Exam Extremities Exam: Tenderness (Mild R hip) Additional comments: Decreased ROM R leg 2nd to fx. - Back Exam Back Exam: tenderness (midline) Additional comments: Kyphosis - Neurological Exam Neurological Exam: Awake Additional comments: Ox2, forgetful - Psychiatric Exam Psychiatric exam: Normal Mood - Skin Skin Exam: Normal Color, Warm Assessment and Plan (1) Fracture of right superior pubic ramus Status: Acute (2) Closed fracture of right iliac wing Status: Acute (3) Status post fall Status: Acute (4) Generalized weakness Status: Acute (5) Dementia Status: Chronic (6) HTN (hypertension) Status: Chronic (7) Hypercholesteremia Status: Chronic - Assessment and Plan (Free Text) Plan: Continue Percocet and rest of tx.
[2018-05-16] MEDS: Oxycodone/Acetaminophen 5/325 mg Tab PO PRN (08:48)
[2018-05-16] MEDS: Multivitamin With Minerals Tab PO SCH (08:50)
[2018-05-16] MEDS: Enoxaparin 40 mg Syringe SC SCH (12:45)
--- NOTE | 2018-05-16 15:36 | CP.PCM.PN ---
Subjective - Date & Time of Evaluation Date of Evaluation: 05/16/18 Time of Evaluation: 10:45 - Subjective Subjective: F/U S/P Fx R Pubic ramus and R Iiliac wing. no pain R hip at rest, Pain R Hip PT NWB standing Objective - Vital Signs/Intake and Output Vital Signs (last 24 hours): Temp Pulse Resp BP Pulse Ox 98.2 F 58 L 20 147/75 99 05/16/18 08:15 05/16/18 08:51 05/16/18 08:15 05/16/18 08:51 05/16/18 08:15 - Medications Medications: Current Medications Acetaminophen (Tylenol 325mg Tab) 650 mg PO Q4 PRN PRN Reason: Pain, moderate (4-7) Last Admin: 05/15/18 06:48 Dose: 650 mg Amlodipine Besylate (Norvasc) 10 mg PO DAILY [facility] Last Admin: 05/16/18 08:51 Dose: 10 mg Atorvastatin Calcium (Lipitor) 10 mg PO 2100 [facility] Last Admin: 05/15/18 23:56 Dose: 10 mg Clopidogrel Bisulfate (Plavix) 75 mg PO DAILY [facility] Last Admin: 05/16/18 08:49 Dose: 75 mg Docusate Sodium (Colace) 100 mg PO BID [facility] Last Admin: 05/16/18 08:50 Dose: 100 mg Donepezil HCl (Aricept) 10 mg PO HS [facility] Last Admin: 05/15/18 23:56 Dose: 10 mg Enoxaparin Sodium (Lovenox) 40 mg SC DAILY [facility] PRN Reason: Protocol Last Admin: 05/16/18 12:45 Dose: 40 mg Hydrochlorothiazide (Microzide) 12.5 mg PO DAILY [facility] Last Admin: 05/16/18 08:49 Dose: 12.5 mg Multivitamins/Minerals (Therapeutic-M Tab) 1 tab PO DAILY [facility] Last Admin: 05/16/18 08:50 Dose: 1 tab Oxycodone/Acetaminophen (Percocet 5/325 Mg Tab) 1 tab PO Q4 PRN PRN Reason: Pain, severe (8-10) Stop: 05/18/18 12:31 Last Admin: 05/16/18 08:48 Dose: 1 tab - Labs Labs: 05/15/18 06:00 05/15/18 06:00 - Constitutional Appears: No Acute Distress - Head Exam Head Exam: NORMAL INSPECTION - Eye Exam Eye Exam: PERRL - ENT Exam ENT Exam: Normal Exam - Neck Exam Neck Exam: Normal Inspection - Respiratory Exam Respiratory Exam: Clear to Ausculation Bilateral - Cardiovascular Exam Cardiovascular Exam: REGULAR RHYTHM - GI/Abdominal Exam GI & Abdominal Exam: Soft, Normal Bowel Sounds - Extremities Exam Extremities Exam: Tenderness (mild R hip) Additional comments: Decreased ROM 2nd to Fx. - Back Exam Back Exam: tenderness (midline, R Hip) Additional comments: Kyphosis - Neurological Exam Neurological Exam: Awake, CN II-XII Intact Additional comments: Ox2, forgetful, no focal motor/sensory deficit - Psychiatric Exam Psychiatric exam: Normal Mood - Skin Skin Exam: Normal Color, Warm Assessment and Plan (1) Fracture of right superior pubic ramus Status: Acute (2) Closed fracture of right iliac wing Status: Acute (3) Status post fall Status: Acute (4) Generalized weakness Status: Acute (5) Dementia Status: Chronic (6) HTN (hypertension) Status: Chronic (7) Hypercholesteremia Status: Chronic - Assessment and Plan (Free Text) Plan: continue PT , OT, Percocet, Plaix, Norvasc and rest of treatment
[2018-05-17] MEDS: Oxycodone/Acetaminophen 5/325 mg Tab PO PRN (08:25)
[2018-05-17] MEDS: Enoxaparin 40 mg Syringe SC SCH (08:27)
[2018-05-17] MEDS: Multivitamin With Minerals Tab PO SCH (08:28)
--- NOTE | 2018-05-17 16:54 | CP.PCM.PN ---
Subjective - Date & Time of Evaluation Date of Evaluation: 05/17/18 Time of Evaluation: 09:30 - Subjective Subjective: F/U Fx R Pubic Ramus/ R Iliac Wing. no pain R hip at rest, pain R Hip with NMB PT, cluster of small white vesicles noted by nurse, no pain, no itching Objective - Vital Signs/Intake and Output Vital Signs (last 24 hours): Temp Pulse Resp BP Pulse Ox 98.2 F 65 20 139/78 97 05/17/18 15:47 05/17/18 15:47 05/17/18 15:47 05/17/18 15:47 05/17/18 15:47 - Medications Medications: Current Medications Acetaminophen (Tylenol 325mg Tab) 650 mg PO Q4 PRN PRN Reason: Pain, moderate (4-7) Last Admin: 05/15/18 06:48 Dose: 650 mg Amlodipine Besylate (Norvasc) 10 mg PO DAILY [facility] Last Admin: 05/17/18 08:28 Dose: 10 mg Atorvastatin Calcium (Lipitor) 10 mg PO 2100 [facility] Last Admin: 05/16/18 22:40 Dose: 10 mg Clopidogrel Bisulfate (Plavix) 75 mg PO DAILY [facility] Last Admin: 05/17/18 08:28 Dose: 75 mg Docusate Sodium (Colace) 100 mg PO BID [facility] Last Admin: 05/17/18 08:28 Dose: 100 mg Donepezil HCl (Aricept) 10 mg PO HS [facility] Last Admin: 05/16/18 22:40 Dose: 10 mg Enoxaparin Sodium (Lovenox) 40 mg SC DAILY [facility] PRN Reason: Protocol Last Admin: 05/17/18 08:27 Dose: 40 mg Hydrochlorothiazide (Microzide) 12.5 mg PO DAILY [facility] Last Admin: 05/17/18 08:28 Dose: 12.5 mg Multivitamins/Minerals (Therapeutic-M Tab) 1 tab PO DAILY [facility] Last Admin: 05/17/18 08:28 Dose: 1 tab Oxycodone/Acetaminophen (Percocet 5/325 Mg Tab) 1 tab PO Q4 PRN PRN Reason: Pain, severe (8-10) Stop: 05/18/18 12:31 Last Admin: 05/17/18 08:25 Dose: 1 tab - Labs Labs: 05/15/18 06:00 05/15/18 06:00 - Constitutional Appears: No Acute Distress - Head Exam Head Exam: NORMAL INSPECTION - Eye Exam Eye Exam: PERRL - ENT Exam ENT Exam: Normal Exam - Neck Exam Neck Exam: Normal Inspection - Respiratory Exam Respiratory Exam: Clear to Ausculation Bilateral - Cardiovascular Exam Cardiovascular Exam: REGULAR RHYTHM - GI/Abdominal Exam GI & Abdominal Exam: Soft, Normal Bowel Sounds - Extremities Exam Extremities Exam: Tenderness (mild R hip) Additional comments: Decreased ROM R leg 2nd to Fx. - Back Exam Back Exam: tenderness (midline) Additional comments: Kyphosis - Neurological Exam Neurological Exam: Awake Additional comments: Ox2, forgetful - Psychiatric Exam Psychiatric exam: Normal Mood - Skin Skin Exam: Normal Color, Vesicles (cluster of small white vesicles R gluteal region), Warm Assessment and Plan (1) Fracture of right superior pubic ramus Status: Acute (2) Closed fracture of right iliac wing Status: Acute (3) Status post fall Status: Acute (4) Generalized weakness Status: Acute (5) Dementia Status: Chronic (6) HTN (hypertension) Status: Chronic (7) Hypercholesteremia Status: Chronic (8) Formation of vesicles Status: Acute - Assessment and Plan (Free Text) Plan: blood test ordred for Shingles and Herpes, continue PT , Percocet , Norvasc , Microzide, Plavix and rest of treatment
[2018-05-17 18:58] LABS: HEMOGLOBIN 12.6 g/dL (12.0-16.0); MEAN CORPUSCULAR HEMOGLOBIN 31.9 pg (27.0-31.0); MEAN CORPUSCULAR HGB CONC 34.7 g/dL (33.0-37.0); RBC 3.95 Mil/uL (3.80-5.20); RED CELL DISTRIBUTION WIDTH 13.3 % (11.5-14.5)
[2018-05-17 19:15] LABS: ALB/GLOB RATIO 1.1 (1.0-2.1); ALBUMIN 4.1 g/dL (3.5-5.0); ALT/SGPT 24 U/L (9-52); AST/SGOT 25 U/L (14-36); BLOOD UREA NITROGEN 25 mg/dl (7-17); CALCIUM 9.7 mg/dL (8.4-10.2); GFR AFRICAN-AMERICAN > 60; GFR NON-AFRICAN AMERICAN > 60
[2018-05-18] MEDS: Multivitamin With Minerals Tab PO SCH (08:35)
[2018-05-18] MEDS: Enoxaparin 40 mg Syringe SC SCH (08:37)
--- NOTE | 2018-05-18 12:38 | CP.PCM.PN ---
Subjective - Date & Time of Evaluation Date of Evaluation: 05/18/18 Time of Evaluation: 10:30 - Subjective Subjective: Patient seen and examined OOB to wheelchair comfortable. Patient is poor historian. Pain is minimal. No new complaints. Objective - Vital Signs/Intake and Output Vital Signs (last 24 hours): Temp Pulse Resp BP Pulse Ox 97.9 F 60 20 145/76 96 05/18/18 09:25 05/18/18 09:25 05/18/18 09:25 05/18/18 09:25 05/18/18 09:25 - Medications Medications: Current Medications Acetaminophen (Tylenol 325mg Tab) 650 mg PO Q4 PRN PRN Reason: Pain, moderate (4-7) Last Admin: 05/15/18 06:48 Dose: 650 mg Amlodipine Besylate (Norvasc) 10 mg PO DAILY [facility] Last Admin: 05/18/18 08:35 Dose: 10 mg Atorvastatin Calcium (Lipitor) 10 mg PO 2100 [facility] Last Admin: 05/17/18 21:59 Dose: 10 mg Clopidogrel Bisulfate (Plavix) 75 mg PO DAILY [facility] Last Admin: 05/18/18 08:36 Dose: 75 mg Docusate Sodium (Colace) 100 mg PO BID [facility] Last Admin: 05/18/18 08:35 Dose: 100 mg Donepezil HCl (Aricept) 10 mg PO HS [facility] Last Admin: 05/17/18 21:59 Dose: 10 mg Enoxaparin Sodium (Lovenox) 40 mg SC DAILY [facility] PRN Reason: Protocol Last Admin: 05/18/18 08:37 Dose: 40 mg Hydrochlorothiazide (Microzide) 12.5 mg PO DAILY [facility] Last Admin: 05/18/18 08:36 Dose: 12.5 mg Multivitamins/Minerals (Therapeutic-M Tab) 1 tab PO DAILY [facility] Last Admin: 05/18/18 08:35 Dose: 1 tab - Labs Labs: 05/17/18 18:30 05/17/18 18:30 - Extremities Exam Additional comments: Right hip: mild lateral hip and groin tenderness sensation intact SP/DP/TN motor intact EHL/FHL/TA/G pedal pulses intact comps soft/NT Assessment and Plan (1) Fracture of right superior pubic ramus Assessment & Plan: -pain control -PT/OT NWB RLE -DVT ppx -orthopedically stable -above d/w Dr. Ngo in agreement Status: Acute (2) Nondisplaced fracture of right ilium Status: Deleted
--- NOTE | 2018-05-18 15:07 | CP.PCM.PN ---
Subjective - Date & Time of Evaluation Date of Evaluation: 05/18/18 Time of Evaluation: 10:20 - Subjective Subjective: F/U Fx R Superior Pubic Ramus/R Iliac Wing. no pain R hip at rest, pain R Hip with NWB RLE PT, no pain , no itching blisters R gluteal Objective - Vital Signs/Intake and Output Vital Signs (last 24 hours): Temp Pulse Resp BP Pulse Ox 97.9 F 60 20 145/76 96 05/18/18 09:25 05/18/18 09:25 05/18/18 09:25 05/18/18 09:25 05/18/18 09:25 - Medications Medications: Current Medications Acetaminophen (Tylenol 325mg Tab) 650 mg PO Q4 PRN PRN Reason: Pain, moderate (4-7) Last Admin: 05/15/18 06:48 Dose: 650 mg Amlodipine Besylate (Norvasc) 10 mg PO DAILY [facility] Last Admin: 05/18/18 08:35 Dose: 10 mg Atorvastatin Calcium (Lipitor) 10 mg PO 2100 [facility] Last Admin: 05/17/18 21:59 Dose: 10 mg Clopidogrel Bisulfate (Plavix) 75 mg PO DAILY [facility] Last Admin: 05/18/18 08:36 Dose: 75 mg Docusate Sodium (Colace) 100 mg PO BID [facility] Last Admin: 05/18/18 08:35 Dose: 100 mg Donepezil HCl (Aricept) 10 mg PO HS [facility] Last Admin: 05/17/18 21:59 Dose: 10 mg Enoxaparin Sodium (Lovenox) 40 mg SC DAILY [facility] PRN Reason: Protocol Last Admin: 05/18/18 08:37 Dose: 40 mg Hydrochlorothiazide (Microzide) 12.5 mg PO DAILY [facility] Last Admin: 05/18/18 08:36 Dose: 12.5 mg Multivitamins/Minerals (Therapeutic-M Tab) 1 tab PO DAILY [facility] Last Admin: 05/18/18 08:35 Dose: 1 tab - Labs Labs: 05/17/18 18:30 05/17/18 18:30 - Constitutional Appears: No Acute Distress - Head Exam Head Exam: NORMAL INSPECTION - Eye Exam Eye Exam: PERRL - ENT Exam ENT Exam: Normal Exam - Neck Exam Neck Exam: Normal Inspection - Respiratory Exam Respiratory Exam: Clear to Ausculation Bilateral - Cardiovascular Exam Cardiovascular Exam: REGULAR RHYTHM - GI/Abdominal Exam GI & Abdominal Exam: Soft, Normal Bowel Sounds - Extremities Exam Extremities Exam: Tenderness (mild R hip) Additional comments: Decreased ROM R leg 2nd to Fx. - Back Exam Back Exam: tenderness (midline) Additional comments: Kyphosis, cluster of small white vesicles R gluteal - Neurological Exam Neurological Exam: Awake, CN II-XII Intact Additional comments: Ox2, forgetful, no focal motor/sensory deficit - Psychiatric Exam Psychiatric exam: Normal Mood - Skin Skin Exam: Warm Assessment and Plan (1) Fracture of right superior pubic ramus Status: Acute (2) Closed fracture of right iliac wing Status: Acute (3) Status post fall Status: Acute (4) Generalized weakness Status: Acute (5) Dementia Status: Chronic (6) HTN (hypertension) Status: Chronic (7) Hypercholesteremia Status: Chronic (8) Formation of vesicles Status: Acute - Assessment and Plan (Free Text) Plan: continue Lipitor, Plavix, Lovenox, Tylenol, Microzide , PT, f/u VZV, Herpes Test
[2018-05-19] MEDS: Multivitamin With Minerals Tab PO SCH (08:41)
[2018-05-19] MEDS: Enoxaparin 40 mg Syringe SC SCH (08:43)
--- NOTE | 2018-05-19 17:02 | CP.PCM.PN ---
Subjective - Date & Time of Evaluation Date of Evaluation: 05/19/18 Time of Evaluation: 12:40 - Subjective Subjective: F/U Fx. R Pubic Ramus/ R Iliac Wing. Objective - Vital Signs/Intake and Output Vital Signs (last 24 hours): Temp Pulse Resp BP Pulse Ox 98.4 F 69 20 125/66 99 05/19/18 15:42 05/19/18 15:42 05/19/18 15:42 05/19/18 15:42 05/19/18 15:42 - Medications Medications: Current Medications Acetaminophen (Tylenol 325mg Tab) 650 mg PO Q4 PRN PRN Reason: Pain, moderate (4-7) Last Admin: 05/15/18 06:48 Dose: 650 mg Amlodipine Besylate (Norvasc) 10 mg PO DAILY [facility] Last Admin: 05/19/18 08:42 Dose: 10 mg Atorvastatin Calcium (Lipitor) 10 mg PO 2100 [facility] Last Admin: 05/18/18 21:28 Dose: 10 mg Clopidogrel Bisulfate (Plavix) 75 mg PO DAILY [facility] Last Admin: 05/19/18 08:41 Dose: 75 mg Docusate Sodium (Colace) 100 mg PO BID [facility] Last Admin: 05/19/18 08:41 Dose: 100 mg Donepezil HCl (Aricept) 10 mg PO HS [facility] Last Admin: 05/18/18 21:28 Dose: 10 mg Enoxaparin Sodium (Lovenox) 40 mg SC DAILY [facility] PRN Reason: Protocol Last Admin: 05/19/18 08:43 Dose: 40 mg Hydrochlorothiazide (Microzide) 12.5 mg PO DAILY [facility] Last Admin: 05/19/18 08:41 Dose: 12.5 mg Multivitamins/Minerals (Therapeutic-M Tab) 1 tab PO DAILY [facility] Last Admin: 05/19/18 08:41 Dose: 1 tab - Labs Labs: 05/17/18 18:30 05/17/18 18:30 - Constitutional Appears: No Acute Distress - Head Exam Head Exam: NORMAL INSPECTION - Eye Exam Eye Exam: PERRL - ENT Exam ENT Exam: Normal Oropharynx - Neck Exam Neck Exam: Normal Inspection - Respiratory Exam Respiratory Exam: Clear to Ausculation Bilateral - Cardiovascular Exam Cardiovascular Exam: REGULAR RHYTHM - GI/Abdominal Exam GI & Abdominal Exam: Soft, Normal Bowel Sounds - Extremities Exam Extremities Exam: Tenderness (Mild R hip) Additional comments: Decreased ROM R leg 2nd to Fx. - Back Exam Additional comments: Kyphosis, cluster of small white vesicle R gluteal - Neurological Exam Neurological Exam: Awake, CN II-XII Intact Additional comments: Ox2, forgetful, no focal motor/sensory deficit - Psychiatric Exam Psychiatric exam: Normal Mood - Skin Skin Exam: Warm Assessment and Plan (1) Fracture of right superior pubic ramus Status: Acute (2) Closed fracture of right iliac wing Status: Acute (3) Status post fall Status: Acute (4) Generalized weakness Status: Acute (5) Dementia Status: Chronic (6) HTN (hypertension) Status: Chronic (7) Hypercholesteremia Status: Chronic (8) Formation of vesicles Status: Acute
[2018-05-20] MEDS: Multivitamin With Minerals Tab PO SCH (09:33)
--- NOTE | 2018-05-20 09:58 | CP.PCM.PN ---
Subjective - Date & Time of Evaluation Date of Evaluation: 05/20/18 Time of Evaluation: 09:57 - Subjective Subjective: Patient seen in the room no pain at rest not ambulating, wc propulsion only at this time not clear on d/c plans but may require further NATALIIA Objective - Vital Signs/Intake and Output Vital Signs (last 24 hours): Temp Pulse Resp BP Pulse Ox 98.1 F 104 H 20 125/55 L 98 05/20/18 08:30 05/20/18 09:34 05/20/18 08:30 05/20/18 09:34 05/20/18 08:30 - Medications Medications: Current Medications Acetaminophen (Tylenol 325mg Tab) 650 mg PO Q4 PRN PRN Reason: Pain, moderate (4-7) Last Admin: 05/19/18 21:52 Dose: 650 mg Amlodipine Besylate (Norvasc) 10 mg PO DAILY [facility] Last Admin: 05/20/18 09:34 Dose: 10 mg Atorvastatin Calcium (Lipitor) 10 mg PO 2100 [facility] Last Admin: 05/19/18 21:48 Dose: 10 mg Clopidogrel Bisulfate (Plavix) 75 mg PO DAILY [facility] Last Admin: 05/20/18 09:34 Dose: 75 mg Docusate Sodium (Colace) 100 mg PO BID [facility] Last Admin: 05/20/18 09:33 Dose: 100 mg Donepezil HCl (Aricept) 10 mg PO HS [facility] Last Admin: 05/19/18 21:48 Dose: 10 mg Hydrochlorothiazide (Microzide) 12.5 mg PO DAILY [facility] Last Admin: 05/20/18 09:33 Dose: 12.5 mg Multivitamins/Minerals (Therapeutic-M Tab) 1 tab PO DAILY [facility] Last Admin: 05/20/18 09:33 Dose: 1 tab - Labs Labs: 05/17/18 18:30 05/17/18 18:30
--- NOTE | 2018-05-20 14:45 | CP.PCM.DIS ---
Provider - Provider Date of Admission: 05/09/18 18:16 Attending physician: Tan Forbes MD Consults: Orthopedic-Dr. David Zhu Physiatry-Dr. Bowles Wound Care Time Spent in preparation of Discharge (in minutes): 35 Diagnosis - Discharge Diagnosis (1) Fracture of right superior pubic ramus Status: Acute Priority: High (2) Closed fracture of right iliac wing Status: Acute (3) Status post fall Status: Acute Priority: High (4) Generalized weakness Status: Acute Priority: High (5) Dementia Status: Chronic Priority: Medium (6) HTN (hypertension) Status: Chronic Priority: Medium (7) Hypercholesteremia Status: Chronic Priority: Medium (8) Formation of vesicles Status: Acute Hospital Course - Lab Results Lab Results: Most Recent Lab Values WBC 10.0 K/uL (4.8-10.8) 05/17/18 18:30 RBC 3.95 Mil/uL (3.80-5.20) 05/17/18 18:30 Hgb 12.6 g/dL (12.0-16.0) 05/17/18 18:30 Hct 36.3 % (34.0-47.0) 05/17/18 18:30 MCV 92.0 fl (81.0-99.0) 05/17/18 18:30 MCH 31.9 pg (27.0-31.0) H 05/17/18 18:30 MCHC 34.7 g/dL (33.0-37.0) 05/17/18 18:30 RDW 13.3 % (11.5-14.5) 05/17/18 18:30 Plt Count 257 K/uL (130-400) 05/17/18 18:30 MPV 9.7 fl (7.2-11.7) 05/15/18 06:00 Neut % (Auto) 65.9 % (50.0-75.0) 05/15/18 06:00 Lymph % (Auto) 18.9 % (20.0-40.0) L 05/15/18 06:00 Bailey % (Auto) 11.0 % (0.0-10.0) H 05/15/18 06:00 Eos % (Auto) 3.4 % (0.0-4.0) 05/15/18 06:00 Baso % (Auto) 0.8 % (0.0-2.0) 05/15/18 06:00 Neut # (Auto) 5.5 K/uL (1.8-7.0) 05/15/18 06:00 Lymph # (Auto) 1.6 K/uL (1.0-4.3) 05/15/18 06:00 Bailey # (Auto) 0.9 K/uL (0.0-0.8) H 05/15/18 06:00 Eos # (Auto) 0.3 K/uL (0.0-0.7) 05/15/18 06:00 Baso # (Auto) 0.1 K/uL (0.0-0.2) 05/15/18 06:00 Sodium 140 mmol/l (132-148) 05/17/18 18:30 Potassium 4.1 MMOL/L (3.6-5.0) 05/17/18 18:30 Chloride 99 mmol/L (98-107) 05/17/18 18:30 Carbon Dioxide 30 mmol/L (22-30) 05/17/18 18:30 Anion Gap 15 (10-20) 05/17/18 18:30 BUN 25 mg/dl (7-17) H 05/17/18 18:30 Creatinine 0.9 mg/dl (0.7-1.2) 05/17/18 18:30 Est GFR ( Amer) > 60 05/17/18 18:30 Est GFR (Non-Af Amer) > 60 05/17/18 18:30 Random Glucose 130 mg/dL (65-105) H 05/17/18 18:30 Calcium 9.7 mg/dL (8.4-10.2) 05/17/18 18:30 Total Bilirubin 0.5 mg/dl (0.2-1.3) 05/17/18 18:30 AST 25 U/L (14-36) 05/17/18 18:30 ALT 24 U/L (9-52) 05/17/18 18:30 Alkaline Phosphatase 103 U/L (38-126) 05/17/18 18:30 Total Protein 7.8 G/DL (6.3-8.2) 05/17/18 18:30 Albumin 4.1 g/dL (3.5-5.0) 05/17/18 18:30 Globulin 3.7 gm/dL (2.2-3.9) 05/17/18 18:30 Albumin/Globulin Ratio 1.1 (1.0-2.1) 05/17/18 18:30 VZV IgG Antibody Positive (POSITIVE) 05/17/18 18:30 VZV IgM Antibody <=0.90 (<=0.90) 05/17/18 18:30 - Date & Time of H&P Date of H&P: 05/10/18 Time of H&P: 10:50 Discharge Exam - Head Exam Head Exam: NORMAL INSPECTION - Eye Exam Eye Exam: PERRL - ENT Exam ENT Exam: Normal Oropharynx - Neck Exam Neck exam: Normal Inspection - Respiratory Exam Respiratory Exam: NORMAL BREATHING PATTERN - Cardiovascular Exam Cardiovascular Exam: REGULAR RHYTHM - GI/Abdominal Exam GI & Abdominal Exam: Normal Bowel Sounds, Soft - Extremities Exam Extremities exam: tenderness (mild R hip) Additional comments: decreased ROM R leg 2nd to Fx - Back Exam Additional comments: Kyphosis, cluster of small white vesicle R gluteal - Neurological Exam Neurological exam: CN II-XII Intact Additional comments: Awake, Ox2,forgetful, no focal motor sensory deficit - Psychiatric Exam Psychiatric exam: Normal Mood - Skin Skin Exam: Warm Discharge Plan - Follow Up Plan Condition: GOOD Disposition: TRANSF TO SNF Instructions: Preventing Falls in the Older Adult, High Blood Pressure (DC)
[2018-05-20 15:36] VITALS: BP 120/66; PULSE 76; TEMP 98.2; O2SAT 99
[2018-05-20 20:34] LABS: INTERPRETATION PAST INFECTION
== END 2018-05-20 17:10 | DRG 561 ==
LOC: H.TCU 18:16
PROVIDERS: ADMIT Internal Medicine Pulmonary Disease; ATTEND Internal Medicine Pulmonary Disease
PROC: F08Z1FZ Dressing Techniques Treatment using Assistive, Adaptive, Supportive or Protective Equipment (ICD-10-PCS; principal; 2018-05-09)
PROC: F08Z0FZ Bathing/Showering Techniques Treatment using Assistive, Adaptive, Supportive or Protective Equipment (ICD-10-PCS; 2018-05-09)
PROC: F07Z5FZ Bed Mobility Treatment using Assistive, Adaptive, Supportive or Protective Equipment (ICD-10-PCS; 2018-05-09)
PROC: F07Z8FZ Transfer Training Treatment using Assistive, Adaptive, Supportive or Protective Equipment (ICD-10-PCS; 2018-05-09)
PROC: F07Z9FZ Gait Training/Functional Ambulation Treatment using Assistive, Adaptive, Supportive or Protective Equipment (ICD-10-PCS; 2018-05-09)
PROC: F07L6ZZ Therapeutic Exercise Treatment of Musculoskeletal System - Lower Back / Lower Extremity (ICD-10-PCS; 2018-05-09)
DX: S32.511D Fracture of superior rim of right pubis, subsequent encounter for fracture with routine healing (principal); W19.XXXD Unspecified fall, subsequent encounter; S32.301D Unspecified fracture of right ilium, subsequent encounter for fracture with routine healing; E78.00 Pure hypercholesterolemia, unspecified; F03.90 Unspecified dementia, unspecified severity, without behavioral disturbance, psychotic disturbance, mood disturbance, and anxiety; I10 Essential (primary) hypertension; R53.1 Weakness; W06.XXXD Fall from bed, subsequent encounter; M40.209 Unspecified kyphosis, site unspecified; R23.8 Other skin changes

== ENCOUNTER 2018-10-29 13:06 | Inpatient (IN) | payer MEDICARE, MEDICAID ==
[2018-10-29 13:07] VITALS: BMI 19.3
[2018-10-29 14:39] LABS: BASO # 0.1 K/uL (0.0-0.2); BASO % 1.1 % (0.0-2.0); EOS # 0.2 K/uL (0.0-0.7); EOS % 2.5 % (0.0-4.0); LYMPH # 1.3 K/uL (1.0-4.3); LYMPH % 20.3 % (20.0-40.0); MEAN CELL VOLUME 90.2 fl (81.0-99.0); MEAN CORPUSCULAR HEMOGLOBIN 30.5 pg (27.0-31.0); MEAN CORPUSCULAR HGB CONC 33.9 g/dL (33.0-37.0); MEAN PLATELET VOLUME 10.9 fl (7.2-11.7); MONO # 0.6 K/uL (0.0-0.8); MONO % 8.7 % (0.0-10.0); NEUT # 4.3 K/uL (1.8-7.0); NEUT % 67.4 % (50.0-75.0); NRBC % 0.1 % (0.0-0.0); PROTHROMBIN TIME 11.5 Seconds (9.8-13.1); RBC 4.57 Mil/uL (3.80-5.20); WHITE BLOOD COUNT 6.4 K/uL (4.8-10.8)
[2018-10-29 14:44] LABS: ALB/GLOB RATIO 1.1 (1.0-2.1); ALT/SGPT 21 U/L (9-52); AST/SGOT 18 U/L (14-36); BLOOD UREA NITROGEN 19 mg/dl (7-17); CALCIUM 9.6 mg/dL (8.4-10.2); GFR NON-AFRICAN AMERICAN > 60; LIPASE 41 U/L (23-300)
--- NOTE | 2018-10-29 14:59 | ED PDOC ---
HPI: Altered Mental Status Time Seen by Provider: 10/29/18 13:32 Chief Complaint (Nursing): Altered Mental Status Chief Complaint (Provider): Altered Mental Status History Per: Patient History/Exam Limitations: None Onset/Duration Of Symptoms: Unknown Current Symptoms Are (Timing): Still Present Additional Complaint(s): 72 y/o female with a PMHx of Dementia presents to the ED accompanied by daughter for evaluation of altered mental status after being found naked in her apartment today by her home health aid. Patient lives on her own but has someone who sits with her every day. Daughter states patient is gradually getting more confused but is currently at her baseline now. Daughter additionally reports patient has had diarrhea for unknown amount of time. Daughter states patient usually walks with a walker but has been having more difficulty ambulating. Denies vomiting. PMD: Rubén Pedraza Past Medical History Reviewed: Historical Data, Nursing Documentation, Vital Signs Vital Signs: Last Vital Signs Temp 97.3 F L 10/29/18 13:24 Pulse 53 L 10/29/18 14:53 Resp 16 10/29/18 14:53 BP 143/80 10/29/18 14:53 Pulse Ox 98 10/29/18 14:53 - Medical History PMH: Dementia, HTN, Hypercholesterolemia Denies: Depression, Chronic Kidney Disease - Surgical History Surgical History: No Surg Hx - Family History Family History: States: Unknown Family Hx - Living Arrangements Living Arrangements: Alone - Immunization History Hx Tetanus Toxoid Vaccination: No Hx Influenza Vaccination: No Hx Pneumococcal Vaccination: No - Home Medications Home Medications: Ambulatory Orders Medication Instructions Recorded Simvastatin 20 mg PO HS 11/27/13 amLODIPine 10 mg PO DAILY 11/27/13 Clopidogrel [Plavix] 75 mg PO DAILY tab 05/20/18 amLODIPine [Norvasc] 10 mg PO DAILY tab 05/20/18 Docusate [Colace] 100 mg PO DAILY cap 11/03/18 Donepezil [Aricept] 10 mg PO HS tab 11/03/18 Enoxaparin [Lovenox] 40 mg SC DAILY syr 11/03/18 LORazepam [Ativan] 0.25 mg PO Q12 PRN tab 11/03/18 Lactobacillus Acidophilus [Bacid 1 cap PO BID cap 11/03/18 Acidophilus] metroNIDAZOLE [Flagyl] 500 mg PO Q8 tab 11/03/18 - Allergies Allergies/Adverse Reactions: Allergies Allergy/AdvReac Type Severity Reaction Status Date / Time No Known Allergies Allergy Verified 05/09/18 18:04 Review of Systems ROS Statement: Except As Marked, All Systems Reviewed And Found Negative Gastrointestinal: Positive for: Diarrhea Psych: Positive for: Other (ALTERED MENTAL STATUS) Physical Exam - Reviewed Nursing Documentation Reviewed: Yes Vital Signs Reviewed: Yes - Physical Exam Appears: Positive for: No Acute Distress Head Exam: Positive for: ATRAUMATIC, NORMOCEPHALIC Skin: Positive for: Normal Color, Warm, Dry Eye Exam: Positive for: Normal appearance, EOMI, PERRL Neck: Positive for: Normal, Painless ROM, Supple Cardiovascular/Chest: Positive for: Regular Rate, Rhythm. Negative for: Murmur Respiratory: Positive for: Normal Breath Sounds. Negative for: Respiratory Distress Gastrointestinal/Abdominal: Positive for: Tenderness (mild generalizd abdominal tenderness). Negative for: Guarding Back: Positive for: Normal Inspection. Negative for: L CVA Tenderness, R CVA Tenderness Extremity: Positive for: Normal ROM. Negative for: Deformity Neurologic/Psych: Positive for: Alert, Oriented. Negative for: Motor/Sensory Deficits - Laboratory Results Result Diagrams: 10/31/18 12:49 10/31/18 12:49 Lab Results: PT 11.5 Seconds (9.8-13.1) 10/29/18 14:29 INR 1.0 10/29/18 14:29 Total Bilirubin 0.8 mg/dl (0.2-1.3) 10/29/18 14:29 AST 18 U/L (14-36) 10/29/18 14:29 ALT 21 U/L (9-52) 10/29/18 14:29 Alkaline Phosphatase 100 U/L (38-126) 10/29/18 14:29 Total Protein 7.5 G/DL (6.3-8.2) 10/29/18 14:29 Albumin 4.0 g/dL (3.5-5.0) 10/29/18 14:29 Globulin 3.5 gm/dL (2.2-3.9) 10/29/18 14:29 Albumin/Globulin Ratio 1.1 (1.0-2.1) 10/29/18 14:29 Lipase 41 U/L (23-300) 10/29/18 14:29 - ECG O2 Sat by Pulse Oximetry: 98 (RA) Pulse Ox Interpretation: Normal Medical Decision Making Medical Decision Making: Time: 1341 Plan: -- CT Abd/Pelvis IV Contrast ONLY -- CT Head w/o Contrast -- EKG -- CMP -- Lipase -- ED Urine Dipstick -- CBC with Differentials -- PTT -- Prothrombin Time -- CXR Portable -- Glucose, Blood, POC -- C Diff Toxin A B -- Urinalysis Time: 1644 CT HEAD RESULTS FINDINGS: HEMORRHAGE: Previously noted hematoma left basal nuclei resolved with residual encep halomalacia.. BRAIN: Moderate to significant diffuse and confluent chronic white matter ischemic c hanges seen extending peripherally into the deep and subcortical white matter both cerebral hemispheres. 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 Note that the possibility of a small hyperacute infarct cannot be excluded. Moderate to significant atrophy with more localized and more significant posterior fossa atrophic changes. Vascular calcifications both carotid siphons. VENTRICLES: Unremarkable. No hydrocephalus. CALVARIUM: Unremarkable. PARANASAL SINUSES: Mild mucosal thickening several right-sided ethmoid air cells with minimal mucosal thickening few left-sided ethmoid air cells. Minor mucosal thickening right maxillary antrum. MASTOID AIR CELLS: Unremarkable as visualized. No inflammatory changes. OTHER FINDINGS: None. IMPRESSION: Previously noted hematoma left basal nuclei resolved with residual encephalomalacia. Moderate to significant diffuse and confluent chronic white matter ischemic changes seen extending peripherally into the deep and subcortical white matter both cerebral hemispheres. 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 Note that the possibility of a small hyperacute infarct cannot be excluded. Moderate to significant atrophy with more localized and more significant post erior fossa atrophic changes. Time: 175 CT ABD/PELVIS RESULTS FINDINGS: LOWER THORAX: Cardiomegaly. No significant pericardial effusion. Passive/dependent type atelectasis both posterior lower lung grant. The some minor linear scarring seen in the lateral aspect right middle lobe bordering the pleural surface. There is a small hiatal hernia with what appears to be a small fluid level in the distal esophagus likely due to some reflux. LIVER: Liver exhibits normal size. Mild fatty infiltration. No obvious hepatic mass collection or calcification. GALLBLADDER AND BILE DUCTS: Gallbladder is physiologically distended. Intraluminal calculi and sludge felt to be present.. Minimal gallbladder wall enhancement; rule out cholecystitis. PANCREAS: Pancreas appears atrophic and fatty replaced. No obvious pancreatic mass or collection. Pancreatic duct is visible lobe does not appear significantly dilated. SPLEEN: Unremarkable. No splenomegaly. ADRENALS: Apparently left adrenal nodule measuring approximately 11 mm. Follow-up nonemergent noncontrast MRI of the adrenal glands could be performed. KIDNEYS AND URETERS: Kidneys demonstrate relatively symmetric nephrograms. No evidence of nephrolithiasis or hydronephrosis.. Small exophytic cyst upper pole right kidney. A smaller anterior upper pole cyst also felt to be present BLADDER: Urinary bladder incompletely distended which presumably accounts for thick- walled appearance however cystitis must be considered. REPRODUCTIVE: Findings suggest pelvic congestion syndrome with dilated exuberant vasculature surrounding the uterus.. Questionable free fluid within the right aspect of the pelvis APPENDIX: Normal appendix BOWEL: Evaluation of the bowel is somewhat limited due to the lack of oral contrast material. Stomach is incompletely distended with thick-walled appearance. Rule out gastritis. Visualized loops of small bowel exhibit normal contour and caliber although there does appear to be some fecalized content.. Moderate amount of stool seen in the cecum and ascending colon suggesting mild fecal retention/constipation. Diverticulosis again noted with questionable wall thickening of a redundant loop of sigmoid colon. The possibility of an acute diverticulitis or colitis cannot be excluded. Clinical correlation recommended. PERITONEUM: Unremarkable. No fluid collection. No free air. LYMPH NODES: Unremarkable. No enlarged lymph nodes. VASCULATURE: Unremarkable. No aortic aneurysm. Mild aortic atherosclerotic calcification or mural plaque present. BONES: Chronic compression deformity of the superior L1 segment. Mild multilevel degenerative spondylosis. OTHER FINDINGS: None. IMPRESSION: Gallbladder is physiologically distended. Intraluminal calculi and sludge felt to be present.. Minimal gallbladder wall enhancement; rule out cholecystitis. Probable left adrenal nodule for which follow-up MRI recommended. Findings suggest pelvic congestion syndrome. Wall thickening of the urinary bladder likely due to incomplete distention however cystitis should be excluded. Clinical correlation with urinalysis recommended. Diverticulosis again noted with questionable wall thickening of a redundant loop of sigmoid colon. The possibility of an acute diverticulitis or colitis cannot be excluded. Clinical correlation recommended. Time: 1818 -- Spoke to surgical training specialist. 18:50 Case discussed with KEVIN Fofana. Scribe Attestation: Documented by Man Barney, acting as a scribe for Joyce Egan MD. Provider Scribe Attestation: All medical record entries made by the Scribe were at my direction and personally dictated by me. I have reviewed the chart and agree that the record accurately reflects my personal performance of the history, physical exam, medical decision making, and the department course for this patient. I have also personally directed, reviewed, and agree with the discharge instructions and disposition. Disposition - Clinical Impression Clinical Impression: Colitis, Dehydration - Patient ED Disposition Is Patient to be Admitted: Transfer of Care - Disposition Disposition Time: 19:00 Condition: STABLE Patient Signed Over To: Cathy Wan
[2018-10-29 15:52] LABS: PARTIAL THROMBOPLASTIN TIME 38.7 Seconds (25.6-37.1)
[2018-10-29] MEDS ORDERED: Sodium Chloride 0.9% 50 ML IV ONE (16:15)
[2018-10-29] MEDS ORDERED: Iohexol 300 100 ML IJ ONE (16:15)
[2018-10-29 16:23] LABS: SQUAMOUS EPITHIAL 3 /hpf (0-5); URINE AMORPHOUS SEDIMENT RARE /ul (<OCC); URINE BILIRUBIN NEGATIVE (NEGATIVE); URINE BLOOD NEGATIVE (NEGATIVE); URINE CLARITY CLOUDY (Clear); URINE COLOR YELLOW (YELLOW); URINE GLUCOSE (UA) NEG (NEGATIVE); URINE HYALINE CAST >20 /hpf (0-2); URINE LEUKOCYTE ESTERASE SMALL Leu/uL (Negative); URINE PROTEIN 30 mg/dL (NEGATIVE)
--- NOTE | 2018-10-29 16:24 | RAD ---
Date of service: 10/29/2018 HISTORY: Diarrhea COMPARISON: Comparison chest 05/06/2018 FINDINGS: LUNGS: Minor bibasilar atelectasis curvilinear scarring left medial lung base. Minimal PLEURA: No significant pleural effusion identified, no pneumothorax apparent. CARDIOVASCULAR: Minor aortic atherosclerotic calcification present. Heart size upper limits of normal/borderline enlarged.. OSSEOUS STRUCTURES: No significant abnormalities. VISUALIZED UPPER ABDOMEN: Normal. OTHER FINDINGS: None. IMPRESSION: Minor bibasilar atelectasis. There also appears to be some minimal curvilinear scarring in the left medial lung base
--- NOTE | 2018-10-29 16:47 | CT ---
Date of service: 10/29/2018 PROCEDURE: CT HEAD WITHOUT CONTRAST. HISTORY: Vertigo COMPARISON: Comparison made with prior MRI of the brain dated 12/09/2009 TECHNIQUE: Axial computed tomography images were obtained through the head/brain without intravenous contrast. Radiation dose: Total exam DLP = 718.23 mGy-cm. This CT exam was performed using one or more of the following dose reduction techniques: Automated exposure control, adjustment of the mA and/or kV according to patient size, and/or use of iterative reconstruction technique. FINDINGS: HEMORRHAGE: Previously noted hematoma left basal nuclei resolved with residual encephalomalacia.. BRAIN: Moderate to significant diffuse and confluent chronic white matter ischemic changes seen extending peripherally into the deep and subcortical white matter both cerebral hemispheres. 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 Note that the possibility of a small hyperacute infarct cannot be excluded. Moderate to significant atrophy with more localized and more significant posterior fossa atrophic changes. Vascular calcifications both carotid siphons. VENTRICLES: Unremarkable. No hydrocephalus. CALVARIUM: Unremarkable. PARANASAL SINUSES: Mild mucosal thickening several right-sided ethmoid air cells with minimal mucosal thickening few left-sided ethmoid air cells. Minor mucosal thickening right maxillary antrum. MASTOID AIR CELLS: Unremarkable as visualized. No inflammatory changes. OTHER FINDINGS: None. IMPRESSION: Previously noted hematoma left basal nuclei resolved with residual encephalomalacia. Moderate to significant diffuse and confluent chronic white matter ischemic changes seen extending peripherally into the deep and subcortical white matter both cerebral hemispheres. 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 Note that the possibility of a small hyperacute infarct cannot be excluded. Moderate to significant atrophy with more localized and more significant posterior fossa atrophic changes.
--- NOTE | 2018-10-29 17:56 | CT ---
Date of service: 10/29/2018 PROCEDURE: CT Abdomen and pelvis. HISTORY: Abd pain COMPARISON: Comparison made with prior CT scan of pelvis dated 05/06/2018 TECHNIQUE: Contiguous axial images of the abdomen and pelvis performed following intravenous injection of approximately 95 cc Omnipaque 300 contrast material. Additional 2D sagittal and coronal reformats s generated. Radiation dose: Total exam DLP = 216.41 mGy-cm. This CT exam was performed using one or more of the following dose reduction techniques: Automated exposure control, adjustment of the mA and/or kV according to patient size, and/or use of iterative reconstruction technique. FINDINGS: LOWER THORAX: Cardiomegaly. No significant pericardial effusion. Passive/dependent type atelectasis both posterior lower lung grant. The some minor linear scarring seen in the lateral aspect right middle lobe bordering the pleural surface. There is a small hiatal hernia with what appears to be a small fluid level in the distal esophagus likely due to some reflux. LIVER: Liver exhibits normal size. Mild fatty infiltration. No obvious hepatic mass collection or calcification. GALLBLADDER AND BILE DUCTS: Gallbladder is physiologically distended. Intraluminal calculi and sludge felt to be present.. Minimal gallbladder wall enhancement; rule out cholecystitis. PANCREAS: Pancreas appears atrophic and fatty replaced. No obvious pancreatic mass or collection. Pancreatic duct is visible lobe does not appear significantly dilated. SPLEEN: Unremarkable. No splenomegaly. ADRENALS: Apparently left adrenal nodule measuring approximately 11 mm. Follow-up nonemergent noncontrast MRI of the adrenal glands could be performed. KIDNEYS AND URETERS: Kidneys demonstrate relatively symmetric nephrograms. No evidence of nephrolithiasis or hydronephrosis.. Small exophytic cyst upper pole right kidney. A smaller anterior upper pole cyst also felt to be present BLADDER: Urinary bladder incompletely distended which presumably accounts for thick-walled appearance however cystitis must be considered. REPRODUCTIVE: Findings suggest pelvic congestion syndrome with dilated exuberant vasculature surrounding the uterus.. Questionable free fluid within the right aspect of the pelvis APPENDIX: Normal appendix BOWEL: Evaluation of the bowel is somewhat limited due to the lack of oral contrast material. Stomach is incompletely distended with thick-walled appearance. Rule out gastritis. Visualized loops of small bowel exhibit normal contour and caliber although there does appear to be some fecalized content.. Moderate amount of stool seen in the cecum and ascending colon suggesting mild fecal retention/constipation. Diverticulosis again noted with questionable wall thickening of a redundant loop of sigmoid colon. The possibility of an acute diverticulitis or colitis cannot be excluded. Clinical correlation recommended. PERITONEUM: Unremarkable. No fluid collection. No free air. LYMPH NODES: Unremarkable. No enlarged lymph nodes. VASCULATURE: Unremarkable. No aortic aneurysm. Mild aortic atherosclerotic calcification or mural plaque present. BONES: Chronic compression deformity of the superior L1 segment. Mild multilevel degenerative spondylosis. OTHER FINDINGS: None. IMPRESSION: Gallbladder is physiologically distended. Intraluminal calculi and sludge felt to be present.. Minimal gallbladder wall enhancement; rule out cholecystitis. Probable left adrenal nodule for which follow-up MRI recommended. Findings suggest pelvic congestion syndrome. Wall thickening of the urinary bladder likely due to incomplete distention however cystitis should be excluded. Clinical correlation with urinalysis recommended. Diverticulosis again noted with questionable wall thickening of a redundant loop of sigmoid colon. The possibility of an acute diverticulitis or colitis cannot be excluded. Clinical correlation recommended.
--- NOTE | 2018-10-29 19:09 | CARD ---
APPROVED REPORT Date of service: 10/29/2018 EKG Measurement Heart [id number] <Conclusion> Sinus bradycardia with sinus arrhythmia Left ventricular hypertrophy with repolarization abnormality Abnormal ECG
--- NOTE | 2018-10-29 19:31 | ED PDOC ---
- Laboratory Results Result Diagrams: 10/29/18 14:29 10/29/18 14:29 Lab Results: PT 11.5 Seconds (9.8-13.1) 10/29/18 14:29 INR 1.0 10/29/18 14:29 APTT 38.7 Seconds (25.6-37.1) H 10/29/18 14:29 Total Bilirubin 0.8 mg/dl (0.2-1.3) 10/29/18 14:29 AST 18 U/L (14-36) 10/29/18 14:29 ALT 21 U/L (9-52) 10/29/18 14:29 Alkaline Phosphatase 100 U/L (38-126) 10/29/18 14:29 Total Protein 7.5 G/DL (6.3-8.2) 10/29/18 14:29 Albumin 4.0 g/dL (3.5-5.0) 10/29/18 14:29 Globulin 3.5 gm/dL (2.2-3.9) 10/29/18 14:29 Albumin/Globulin Ratio 1.1 (1.0-2.1) 10/29/18 14:29 Lipase 41 U/L (23-300) 10/29/18 14:29 Urine Color Yellow (YELLOW) 10/29/18 16:10 Urine Clarity Cloudy (Clear) 10/29/18 16:10 Urine pH 6.0 (5.0-8.0) 10/29/18 16:10 Ur Specific [place] 1.024 (1.003-1.030) 10/29/18 16:10 Urine Protein 30 mg/dL (NEGATIVE) 10/29/18 16:10 Urine Glucose (UA) Neg mg/dL (NEGATIVE) 10/29/18 16:10 Urine Ketones Trace mg/dL (NEGATIVE) 10/29/18 16:10 Urine Blood Negative (NEGATIVE) 10/29/18 16:10 Urine Nitrate Negative (NEGATIVE) 10/29/18 16:10 Urine Bilirubin Negative (NEGATIVE) 10/29/18 16:10 Urine Urobilinogen 2.0 mg/dL (0.2-1.0) H 10/29/18 16:10 Ur Leukocyte Esterase Small Elva/uL (Negative) 10/29/18 16:10 Urine Microscopic WBC 5 /hpf (0-5) 10/29/18 16:10 Ur Squamous Epith Cells 3 /hpf (0-5) 10/29/18 16:10 Amorphous Sediment Rare /ul (<OCC) H 10/29/18 16:10 Hyaline Casts >20 /hpf (0-2) H 10/29/18 16:10 - ECG O2 Sat by Pulse Oximetry: 98 (RA) Pulse Ox Interpretation: Normal Medical Decision Making Medical Decision Making: Time: 1899 -- Patient endorsed to me by Dr. Egan, pending US and surgical consult. Time: 2110 US RESULTS COMMENTS: The liver is of decreased echogenicity and smooth contour without evidence of mass or defect measuring 14.7 cm. There is no intra or extrahepatic biliary ductal dilatation. The common bile duct measures up to 2 mm. The gallbladder is physiologically distended. The gallbladder wall is not thickened measuring 2 mm and there is no pericholecystic fluid. Multiple gallstones are seen. There is no abdominal ascites. Evaluation of the pancreas is limited due to bowel gas. The right kidney measures 7.9 x 3.5 x 3.2 cm and is free of masses or hydronephrosis, solid masses, and stones. Right renal cyst is seen in the upper pole measuring 7 x 7 x 8 mm. The visualized portions of abdominal aorta and inferior vena cava present no abnormalities. The proximal portions only of the abdominal aorta are visualized. IMPRESSION: 1. Multiple gallstones. 2. Right renal cyst 3. Limited study due to bowel gas. Electronically signed on Oct 29, 2018 8:11:58 PM EST by: Fortunato Reddy M.D., HAMIDA Certified By [facility] Fellowship Trained MRI and CT Specialist Scribe Attestation: Documented by Man Barney, acting as a scribe for Cathy Wan MD. Provider Scribe Attestation: All medical record entries made by the Scribe were at my direction and personally dictated by me. I have reviewed the chart and agree that the record accurately reflects my personal performance of the history, physical exam, medical decision making, and the department course for this patient. I have also personally directed, reviewed, and agree with the discharge instructions and disposition. Disposition Discussed With Dr.: Perry Feliz Doctor Will See Patient In The: Hospital Counseled Patient/Family Regarding: Studies Performed, Diagnosis - Clinical Impression Clinical Impression: Colitis, Dehydration - POA Present On Arrival: None - Disposition Disposition: Hospitalized as Observation Patient Disposition Time: 22:00 Condition: FAIR
--- NOTE | 2018-10-29 21:17 | CP.PCM.CON ---
History of Present Illness - History of Present Illness History of Present Illness: 72F with PMHx of dementia, TIA, HTN, hyperlipidemia, presents to the ED along with daughter for evaluation of mental status. According to daughter, patient was found naked in her apartment today by her home health aid. Daughter reports patient had a couple bouts of non bloody diarrhea. At time of examination patient did not have any complaints. She was laying comfortably in bed having [employer]. Daughter reports mother has chronic right sided weakness from hx of TIA and stroke. General surgery consulted for cholelithiasis. PMHx: as stated above PSurgHx: denies Allergies: NKDA Review of Systems - Review of Systems Systems not reviewed;Unavailable: Dementia Past Patient History - Tetanus Immunizations Tetanus Immunization: Unknown - Past Medical History & Family History Past Medical History?: Yes - Past Social History Smoking Status: Never Smoked - CARDIAC Hx Hypercholesterolemia: Yes Hx Hypertension: Yes - PULMONARY Hx Respiratory Disorders: No - NEUROLOGICAL Hx Dementia: Yes - HEENT Hx HEENT Problems: Yes Hx Cataracts: Yes - RENAL Hx Chronic Kidney Disease: No - ENDOCRINE/METABOLIC Hx Endocrine Disorders: No - HEMATOLOGICAL/ONCOLOGICAL Hx Blood Disorders: No - INTEGUMENTARY Hx Dermatological Problems: No - MUSCULOSKELETAL/RHEUMATOLOGICAL Hx Musculoskeletal Disorders: Yes Hx Back Pain: Yes Hx Falls: Yes - GASTROINTESTINAL Hx Gastrointestinal Disorders: No - GENITOURINARY/GYNECOLOGICAL Hx Genitourinary Disorders: Yes Hx Incontinence: Yes - PSYCHIATRIC Hx Depression: No - SURGICAL HISTORY Hx Surgeries: No - ANESTHESIA Hx Anesthesia: No Hx Anesthesia Reactions: No Hx Malignant Hyperthermia: No Meds Allergies/Adverse Reactions: Allergies Allergy/AdvReac Type Severity Reaction Status Date / Time No Known Allergies Allergy Verified 05/09/18 18:04 Physical Exam - Constitutional Appears: No Acute Distress - Head Exam Head Exam: NORMOCEPHALIC - Eye Exam Eye Exam: Normal appearance - ENT Exam ENT Exam: Mucous Membranes Moist - Respiratory Exam Respiratory Exam: NORMAL BREATHING PATTERN - Cardiovascular Exam Cardiovascular Exam: +S1, +S2 - GI/Abdominal Exam GI & Abdominal Exam: Soft. absent: Distended, Firm, Guarding, Rebound, Rigid, Tenderness - Neurological Exam Neurological exam: Alert Additional comments: Right UE and LE sided weakness, chronic - Psychiatric Exam Psychiatric exam: Normal Mood - Skin Skin Exam: Dry, Intact, Warm Results - Vital Signs Recent Vital Signs: Last Vital Signs Temp 98.2 F 10/29/18 19:29 Pulse 61 10/29/18 19:29 Resp 18 10/29/18 19:29 BP 183/89 H 10/29/18 19:29 Pulse Ox 98 10/29/18 20:40 - Labs Result Diagrams: 10/29/18 14:29 10/29/18 14:29 Labs: Laboratory Results - last 24 hr 10/29/18 10/29/18 10/29/18 14:29 14:29 14:29 WBC 6.4 RBC 4.57 Hgb 14.0 Hct 41.2 MCV 90.2 MCH 30.5 MCHC 33.9 RDW 14.0 Plt Count 162 MPV 10.9 Neut % (Auto) 67.4 Lymph % (Auto) 20.3 [place] % (Auto) 8.7 Eos % (Auto) 2.5 Baso % (Auto) 1.1 Neut # (Auto) 4.3 Lymph # (Auto) 1.3 [place] # (Auto) 0.6 Eos # (Auto) 0.2 Baso # (Auto) 0.1 PT 11.5 INR 1.0 APTT 38.7 H Sodium 140 Potassium 3.8 Chloride 100 Carbon Dioxide 30 Anion Gap 14 BUN 19 H Creatinine 0.9 Est GFR ( Amer) > 60 Est GFR (Non-Af Amer) > 60 Random Glucose 96 Calcium 9.6 Total Bilirubin 0.8 AST 18 ALT 21 Alkaline Phosphatase 100 Total Protein 7.5 Albumin 4.0 Globulin 3.5 Albumin/Globulin Ratio 1.1 Lipase 41 Urine Color Urine Clarity Urine pH Ur Specific [place] Urine Protein Urine Glucose (UA) Urine Ketones Urine Blood Urine Nitrate Urine Bilirubin Urine Urobilinogen Ur Leukocyte Esterase Urine Microscopic WBC Ur Squamous Epith Cells Amorphous Sediment Hyaline Casts 10/29/18 16:10 WBC RBC Hgb Hct MCV MCH MCHC RDW Plt Count MPV Neut % (Auto) Lymph % (Auto) [place] % (Auto) Eos % (Auto) Baso % (Auto) Neut # (Auto) Lymph # (Auto) [place] # (Auto) Eos # (Auto) Baso # (Auto) PT INR APTT Sodium Potassium Chloride Carbon Dioxide Anion Gap BUN Creatinine Est GFR ( Amer) Est GFR (Non-Af Amer) Random Glucose Calcium Total Bilirubin AST ALT Alkaline Phosphatase Total Protein Albumin Globulin Albumin/Globulin Ratio Lipase Urine Color Yellow Urine Clarity Cloudy Urine pH 6.0 Ur Specific [place] 1.024 Urine Protein 30 Urine Glucose (UA) Neg Urine Ketones Trace Urine Blood Negative Urine Nitrate Negative Urine Bilirubin Negative Urine Urobilinogen 2.0 H Ur Leukocyte Esterase Small Urine Microscopic WBC 5 Ur Squamous Epith Cells 3 Amorphous Sediment Rare H Hyaline Casts >20 H Assessment & Plan - Assessment and Plan (Free Text) Assessment: 72F with asymptomatic cholelithiasis Plan: -Recommend Abd/US -Gallbladder as source of patient's current medical issues, unlikely -No plans for acute surgical intervention Further recs per Dr. Pedro Fontaine PGY3
[2018-10-29] MEDS ORDERED: Ciprofloxacin 400mg/200ml D5W 400 MG/200 ML BAG IVPB STA (21:29)
[2018-10-29] MEDS ORDERED: metroNIDAZOLE 500mg/100ml NS 100 ML IVPB STA (21:30)
[2018-10-29] MEDS ORDERED: metroNIDAZOLE 500mg/100ml NS 100 ML IVPB ONE (23:14)
[2018-10-30] MEDS ORDERED: metroNIDAZOLE 500mg/100ml NS 100 ML IVPB SCH ×2 (01:00→01:15)
[2018-10-30] MEDS: Sodium Chloride 0.45% 1,000 ML IV SCH ×3 (01:31→21:55)
--- NOTE | 2018-10-30 07:29 | CP.PCM.PN ---
Subjective - Date & Time of Evaluation Date of Evaluation: 10/30/18 Time of Evaluation: 06:35 - Subjective Subjective: Patient seen and examined. No acute events over night. Denies nausea/vomiting. Denies pain. Objective - Vital Signs/Intake and Output Vital Signs (last 24 hours): Temp Pulse Resp BP Pulse Ox 97.8 F 88 20 154/72 H 98 10/30/18 00:30 10/30/18 01:35 10/30/18 01:35 10/30/18 00:30 10/30/18 00:30 - Medications Medications: Current Medications Amlodipine Besylate (Norvasc) 10 mg PO DAILY [facility] Atorvastatin Calcium (Lipitor) 10 mg PO HS REAL Clopidogrel Bisulfate (Plavix) 75 mg PO DAILY [facility] Enoxaparin Sodium (Lovenox) 40 mg SC DAILY REAL; Protocol Ciprofloxacin (Cipro 400mg/200ml Dsw) 400 mg in 200 mls @ 200 mls/hr IVPB Q12 REAL; Protocol Sodium Chloride (Sodium Chloride 0.45%) 1,000 mls @ 100 mls/hr IV .Q10H REAL Stop: 10/31/18 01:05 Last Admin: 10/30/18 01:31 Dose: 100 mls/hr Metronidazole (Flagyl 500mg/100ml Ns) 100 mls @ 100 mls/hr IVPB Q8 REAL; Protocol Lactobacillus Acidophilus (Bacid Acidophilus) 1 cap PO BID REAL - Labs Labs: 10/29/18 14:29 10/29/18 14:29 PT 11.5 Seconds (9.8-13.1) 10/29/18 14:29 INR 1.0 10/29/18 14:29 APTT 38.7 Seconds (25.6-37.1) H 10/29/18 14:29 - Constitutional Appears: No Acute Distress - Eye Exam Eye Exam: Normal appearance - ENT Exam ENT Exam: Mucous Membranes Moist - Respiratory Exam Respiratory Exam: NORMAL BREATHING PATTERN - Cardiovascular Exam Cardiovascular Exam: +S1, +S2 - GI/Abdominal Exam GI & Abdominal Exam: Soft. absent: Distended, Firm, Guarding, Rigid, Tendernes s, Rebound - Neurological Exam Neurological Exam: Alert - Skin Skin Exam: Dry, Intact, Warm Assessment and Plan - Assessment and Plan (Free Text) Assessment: 72F with asymptomatic cholelithiasis Plan: -F/u official [place] U/S report -Gallbladder as source of patient's current medical issues, unlikely -No plans for acute surgical intervention Further recs per Dr. Pedro Fontaine PGY3
[2018-10-30] MEDS: Ciprofloxacin 400mg/200ml D5W 400 MG/200 ML BAG IVPB SCH ×2 (09:26→20:39)
[2018-10-30] MEDS: metroNIDAZOLE 500mg/100ml NS 100 ML IVPB SCH ×2 (09:26→16:13)
[2018-10-30] MEDS: Enoxaparin 40 mg Syringe SC SCH (09:27)
[2018-10-30] MEDS: Lactobacillus Acidophilus 500 MU Cap PO SCH ×2 (10:43→16:34)
--- NOTE | 2018-10-30 10:49 | CP.PCM.HP ---
Past Patient History - Tetanus Immunizations Tetanus Immunization: Unknown - Past Medical History & Family History Past Medical History?: Yes - Past Social History Smoking Status: Never Smoked - CARDIAC Hx Cardiac Disorders: Yes Hx Hypercholesterolemia: Yes Hx Hypertension: Yes - PULMONARY Hx Respiratory Disorders: No - NEUROLOGICAL Hx Neurological Disorder: Yes HX Cerebrovascular Accident: Yes (1997) Hx Dementia: Yes - HEENT Hx HEENT Problems: Yes - RENAL Hx Chronic Kidney Disease: No - ENDOCRINE/METABOLIC Hx Endocrine Disorders: No - HEMATOLOGICAL/ONCOLOGICAL Hx Blood Disorders: No Hx AIDS: No Hx Human Immunodeficiency Virus (HIV): No - INTEGUMENTARY Hx Dermatological Problems: No - MUSCULOSKELETAL/RHEUMATOLOGICAL Hx Musculoskeletal Disorders: Yes Hx Falls: Yes Hx Unsteady Gait: Yes - GASTROINTESTINAL Hx Gastrointestinal Disorders: No - GENITOURINARY/GYNECOLOGICAL Hx Genitourinary Disorders: Yes Hx Incontinence: Yes - PSYCHIATRIC Hx Psychophysiologic Disorder: No Hx Substance Use: No - SURGICAL HISTORY Hx Surgeries: No - ANESTHESIA Hx Anesthesia: No Hx Anesthesia Reactions: No Hx Malignant Hyperthermia: No Has any member of the family had a problem w/ anesthesia?: No Meds Allergies/Adverse Reactions: Allergies Allergy/AdvReac Type Severity Reaction Status Date / Time No Known Allergies Allergy Verified 05/09/18 18:04 Results - Vital Signs Recent Vital Signs: Last Vital Signs Temp 97.9 F 10/30/18 08:45 Pulse 74 10/30/18 09:28 Resp 20 10/30/18 08:45 BP 152/82 H 10/30/18 09:28 Pulse Ox 97 10/30/18 08:45 - Labs Result Diagrams: 10/29/18 14:29 10/29/18 14:29 Labs: Laboratory Results - last 24 hr 10/29/18 10/29/18 10/29/18 14:19 14:29 14:29 WBC 6.4 RBC 4.57 Hgb 14.0 Hct 41.2 MCV 90.2 MCH 30.5 MCHC 33.9 RDW 14.0 Plt Count 162 MPV 10.9 Neut % (Auto) 67.4 Lymph % (Auto) 20.3 [place] % (Auto) 8.7 Eos % (Auto) 2.5 Baso % (Auto) 1.1 Neut # (Auto) 4.3 Lymph # (Auto) 1.3 [place] # (Auto) 0.6 Eos # (Auto) 0.2 Baso # (Auto) 0.1 PT INR APTT Sodium 140 Potassium 3.8 Chloride 100 Carbon Dioxide 30 Anion Gap 14 BUN 19 H Creatinine 0.9 Est GFR ( Amer) > 60 Est GFR (Non-Af Amer) > 60 POC Glucose (mg/dL) 94 Random Glucose 96 Calcium 9.6 Total Bilirubin 0.8 AST 18 ALT 21 Alkaline Phosphatase 100 Total Protein 7.5 Albumin 4.0 Globulin 3.5 Albumin/Globulin Ratio 1.1 Lipase 41 Urine Color Urine Clarity Urine pH Ur Specific [place] Urine Protein Urine Glucose (UA) Urine Ketones Urine Blood Urine Nitrate Urine Bilirubin Urine Urobilinogen Ur Leukocyte Esterase Urine Microscopic WBC Ur Squamous Epith Cells Amorphous Sediment Hyaline Casts 10/29/18 10/29/18 14:29 16:10 WBC RBC Hgb Hct MCV MCH MCHC RDW Plt Count MPV Neut % (Auto) Lymph % (Auto) [place] % (Auto) Eos % (Auto) Baso % (Auto) Neut # (Auto) Lymph # (Auto) [place] # (Auto) Eos # (Auto) Baso # (Auto) PT 11.5 INR 1.0 APTT 38.7 H Sodium Potassium Chloride Carbon Dioxide Anion Gap BUN Creatinine Est GFR ( Amer) Est GFR (Non-Af Amer) POC Glucose (mg/dL) Random Glucose Calcium Total Bilirubin AST ALT Alkaline Phosphatase Total Protein Albumin Globulin Albumin/Globulin Ratio Lipase Urine Color Yellow Urine Clarity Cloudy Urine pH 6.0 Ur Specific [place] 1.024 Urine Protein 30 Urine Glucose (UA) Neg Urine Ketones Trace Urine Blood Negative Urine Nitrate Negative Urine Bilirubin Negative Urine Urobilinogen 2.0 H Ur Leukocyte Esterase Small Urine Microscopic WBC 5 Ur Squamous Epith Cells 3 Amorphous Sediment Rare H Hyaline Casts >20 H Assessment & Plan (1) Colitis Status: Acute (2) Dehydration Status: Acute (3) General weakness Status: Acute (4) Dementia Status: Chronic Priority: Medium (5) HTN (hypertension) Status: Chronic Priority: Medium (6) Hypercholesteremia Status: Chronic Priority: Medium
--- NOTE | 2018-10-30 12:31 | US ---
Date of service: 10/29/2018 HISTORY: r/o cholecystitis COMPARISON: Comparison made with prior CT scan abdomen pelvis 10/29/2018 as well as renal ultrasound 12/09/2009. TECHNIQUE: Sonographic evaluation of the right upper quadrant of the abdomen. FINDINGS: LIVER: Measures 14.7 cm in length. Normal echogenicity of the liver parenchyma. No mass. No intrahepatic bile duct dilatation. GALLBLADDER: Multiple intraluminal gallbladder calculi. No pericholecystic fluid collections. No sonographic Stover sign reported. COMMON BILE DUCT: Measures 2.0 mm. No stones. No dilatation. PANCREAS: Poorly delineated due to body habitus and bowel gas. RIGHT KIDNEY: Measures 7.9 x 3.5 x 3.2 cm in length. Normal echogenicity. No calculus, mass, or hydronephrosis. Small cyst upper pole kidney measuring 8 mm in greatest dimension. AORTA: The proximal portions of the abdominal aorta appear unremarkable however the mid and distal abdominal aorta poorly seen due to body habitus and bowel gas IVC: Unremarkable. OTHER FINDINGS: None . IMPRESSION: Cholelithiasis. No sonographic Stover sign.
--- NOTE | 2018-10-30 17:24 | CP.PCM.CON ---
History of Present Illness - History of Present Illness History of Present Illness: General Surgery Agree with resident consult note. Pt currently feeling well today and has been eating without difficulty. 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 Afebrile. Labs (no new ones today), vitals, and imaging reviewed with Dr. Vasquez. PE Gen: Pt laying in bed in NAD Skin: warm and dry Cardio: s1s2 RRR Lungs: CTA bilaterally Abd: Soft NTND, (-) Stover's, (-) masses, (-) rebound Extr: (-) calf tenderness bilaterally A/P Abdominal pain, cholelithiasis, Diarrhea Continue solid diet No evidence of cholecystitis No surgical intervention at this time Surgery signing off Pt to follow up in the office with Dr. Vasquez for cholelithiasis Past Patient History - Tetanus Immunizations Tetanus Immunization: Unknown - Past Medical History & Family History Past Medical History?: Yes - Past Social History Smoking Status: Never Smoked - CARDIAC Hx Cardiac Disorders: Yes Hx Hypercholesterolemia: Yes Hx Hypertension: Yes - PULMONARY Hx Respiratory Disorders: No - NEUROLOGICAL Hx Neurological Disorder: Yes HX Cerebrovascular Accident: Yes (1997) Hx Dementia: Yes - HEENT Hx HEENT Problems: Yes - RENAL Hx Chronic Kidney Disease: No - ENDOCRINE/METABOLIC Hx Endocrine Disorders: No - HEMATOLOGICAL/ONCOLOGICAL Hx Blood Disorders: No Hx AIDS: No Hx Human Immunodeficiency Virus (HIV): No - INTEGUMENTARY Hx Dermatological Problems: No - MUSCULOSKELETAL/RHEUMATOLOGICAL Hx Musculoskeletal Disorders: Yes Hx Falls: Yes Hx Unsteady Gait: Yes - GASTROINTESTINAL Hx Gastrointestinal Disorders: No - GENITOURINARY/GYNECOLOGICAL Hx Genitourinary Disorders: Yes Hx Incontinence: Yes - PSYCHIATRIC Hx Psychophysiologic Disorder: No Hx Substance Use: No - SURGICAL HISTORY Hx Surgeries: No - ANESTHESIA Hx Anesthesia: No Hx Anesthesia Reactions: No Hx Malignant Hyperthermia: No Has any member of the family had a problem w/ anesthesia?: No Meds Allergies/Adverse Reactions: Allergies Allergy/AdvReac Type Severity Reaction Status Date / Time No Known Allergies Allergy Verified 05/09/18 18:04 - Medications Medications: Current Medications Amlodipine Besylate (Norvasc) 10 mg PO DAILY [facility] Last Admin: 10/30/18 09:28 Dose: 10 mg Atorvastatin Calcium (Lipitor) 10 mg PO HS [facility] Clopidogrel Bisulfate (Plavix) 75 mg PO DAILY [facility] Last Admin: 10/30/18 09:27 Dose: 75 mg Docusate Sodium (Colace) 100 mg PO DAILY [facility] Last Admin: 10/30/18 09:25 Dose: 100 mg Enoxaparin Sodium (Lovenox) 40 mg SC DAILY [facility]; Protocol Last Admin: 10/30/18 09:27 Dose: 40 mg Ciprofloxacin (Cipro 400mg/200ml Dsw) 400 mg in 200 mls @ 200 mls/hr IVPB Q12 REAL; Protocol Last Admin: 10/30/18 09:26 Dose: 200 mls/hr Sodium Chloride (Sodium Chloride 0.45%) 1,000 mls @ 100 mls/hr IV .Q10H REAL Stop: 10/31/18 01:05 Last Admin: 10/30/18 13:55 Dose: 100 mls/hr Metronidazole (Flagyl 500mg/100ml Ns) 100 mls @ 100 mls/hr IVPB Q8 REAL; Protocol Last Admin: 10/30/18 16:13 Dose: 100 mls/hr Lactobacillus Acidophilus (Bacid Acidophilus) 1 cap PO BID [facility] Last Admin: 10/30/18 16:34 Dose: 1 cap Results - Vital Signs Recent Vital Signs: Last Vital Signs Temp 97.6 F 10/30/18 16:54 Pulse 67 10/30/18 16:54 Resp 18 10/30/18 16:54 BP 148/75 10/30/18 16:54 Pulse Ox 99 10/30/18 16:54 - Labs Result Diagrams: 10/29/18 14:29 10/29/18 14:29 Labs: Laboratory Results - last 24 hr 10/29/18 14:19 POC Glucose (mg/dL) 94
[2018-10-31] MEDS: metroNIDAZOLE 500mg/100ml NS 100 ML IVPB SCH ×3 (02:00→16:10)
[2018-10-31] MEDS: Sodium Chloride 0.45% 1,000 ML IV SCH (05:27)
[2018-10-31] MEDS: Ciprofloxacin 400mg/200ml D5W 400 MG/200 ML BAG IVPB SCH ×2 (09:31→21:15)
[2018-10-31] MEDS: Enoxaparin 40 mg Syringe SC SCH (09:32)
[2018-10-31] MEDS: Lactobacillus Acidophilus 500 MU Cap PO SCH ×2 (09:44→16:10)
--- NOTE | 2018-10-31 10:49 | CP.PCM.PN ---
Subjective - Date & Time of Evaluation Date of Evaluation: 10/31/18 Time of Evaluation: 09:45 - Subjective Subjective: Patient was seen and examined at the bedside. Denies any abdominal pain, no nausea, no vomiting, tolerating regular diet. Objective - Vital Signs/Intake and Output Vital Signs (last 24 hours): Temp Pulse Resp BP Pulse Ox 98.5 F 62 20 162/85 H 96 10/31/18 08:31 10/31/18 09:33 10/31/18 08:31 10/31/18 09:33 10/31/18 08:31 - Medications Medications: Current Medications Amlodipine Besylate (Norvasc) 10 mg PO DAILY [facility] Last Admin: 10/31/18 09:33 Dose: 10 mg Atorvastatin Calcium (Lipitor) 10 mg PO HS [facility] Last Admin: 10/30/18 21:33 Dose: 10 mg Clopidogrel Bisulfate (Plavix) 75 mg PO DAILY [facility] Last Admin: 10/31/18 09:33 Dose: 75 mg Docusate Sodium (Colace) 100 mg PO DAILY [facility] Last Admin: 10/31/18 09:31 Dose: 100 mg Enoxaparin Sodium (Lovenox) 40 mg SC DAILY [facility]; Protocol Last Admin: 10/31/18 09:32 Dose: 40 mg Ciprofloxacin (Cipro 400mg/200ml Dsw) 400 mg in 200 mls @ 200 mls/hr IVPB Q12 REAL; Protocol Last Admin: 10/31/18 09:31 Dose: 200 mls/hr Metronidazole (Flagyl 500mg/100ml Ns) 100 mls @ 100 mls/hr IVPB Q8 REAL; Protocol Last Admin: 10/31/18 02:00 Dose: 100 mls/hr Lactobacillus Acidophilus (Bacid Acidophilus) 1 cap PO BID REAL Last Admin: 10/31/18 09:44 Dose: 1 cap - Labs Labs: 10/29/18 14:29 10/29/18 14:29 PT 11.5 Seconds (9.8-13.1) 10/29/18 14:29 INR 1.0 10/29/18 14:29 APTT 38.7 Seconds (25.6-37.1) H 10/29/18 14:29 - Constitutional Appears: Well, Non-toxic, No Acute Distress - Head Exam Head Exam: ATRAUMATIC, NORMAL INSPECTION, NORMOCEPHALIC - Eye Exam Eye Exam: EOMI, Normal appearance, PERRL Pupil Exam: NORMAL ACCOMODATION, PERRL - ENT Exam ENT Exam: Mucous Membranes Moist, Normal Exam - Neck Exam Neck Exam: Full ROM, Normal Inspection - Respiratory Exam Respiratory Exam: Clear to Ausculation Bilateral, NORMAL BREATHING PATTERN - Cardiovascular Exam Cardiovascular Exam: REGULAR RHYTHM, +S1, +S2 - GI/Abdominal Exam GI & Abdominal Exam: Soft, Normal Bowel Sounds Additional comments: soft, NT, ND, BS+, no rebound, no guarding, negative Stover's sign - Rectal Exam Rectal Exam: Deferred - Extremities Exam Extremities Exam: Full ROM - Neurological Exam Neurological Exam: Alert, Awake - Psychiatric Exam Psychiatric exam: Normal Affect, Normal Mood - Skin Skin Exam: Dry, Intact, Normal Color, Warm Assessment and Plan - Assessment and Plan (Free Text) Assessment: 73 y.o. female with asymptomatic cholelithiais Plan: - Continue diet - No general surgery intervention at present time - Continue care as per medical team - General surgery will sign off - Please re-consult as needed
[2018-10-31 13:21] LABS: BLOOD UREA NITROGEN 9 mg/dl (7-17); CALCIUM 9.2 mg/dL (8.4-10.2); GFR NON-AFRICAN AMERICAN > 60
[2018-10-31 13:37] LABS: HEMOGLOBIN 13.9 g/dL (12.0-16.0); MEAN CELL VOLUME 90.4 fl (81.0-99.0); MEAN CORPUSCULAR HEMOGLOBIN 30.4 pg (27.0-31.0); MEAN CORPUSCULAR HGB CONC 33.6 g/dL (33.0-37.0); RBC 4.56 Mil/uL (3.80-5.20); RED CELL DISTRIBUTION WIDTH 14.1 % (11.5-14.5); WHITE BLOOD COUNT 6.9 K/uL (4.8-10.8)
[2018-10-31] MEDS ORDERED: Potassium Chloride 20 mEq ER Tab PO ONE (14:50)
[2018-11-01] MEDS: metroNIDAZOLE 500mg/100ml NS 100 ML IVPB SCH ×3 (00:16→16:34)
[2018-11-01] MEDS: Lactobacillus Acidophilus 500 MU Cap PO SCH ×2 (08:37→16:34)
[2018-11-01] MEDS: Enoxaparin 40 mg Syringe SC SCH (08:38)
[2018-11-01] MEDS: Ciprofloxacin 400mg/200ml D5W 400 MG/200 ML BAG IVPB SCH ×2 (08:38→21:08)
--- NOTE | 2018-11-01 12:27 | CP.PCM.CON ---
History of Present Illness - History of Present Illness History of Present Illness: pt is a 72 y/o female with previous psychiatric diagnosis of dementia, no history of previous psychiatric hospitalization presents to the ED accompanied by daughter for evaluation of altered mental status after being found naked in her apartment today by her home health aid. Patient lives on her own but has someone who sits with her every day. Daughter who was by bed side at time of evaluation, reported that patient is gradually getting more confused but is currently at her baseline now. also reported pt lately had difficulty with amulating and had frequent falls pt on evaluation, calm , partial eye contact speech underproductive, thought process not goal directed, not able to give any further history and unable to furthe assess mental status as pt is confused, oriented to person only as per staff, pt initially on admission had episodes of irritability attempting to leave the hospital Past Patient History - Tetanus Immunizations Tetanus Immunization: Unknown - Past Medical History & Family History Past Medical History?: Yes - Past Social History Smoking Status: Never Smoked - CARDIAC Hx Cardiac Disorders: Yes Hx Hypercholesterolemia: Yes Hx Hypertension: Yes - PULMONARY Hx Respiratory Disorders: No - NEUROLOGICAL Hx Neurological Disorder: Yes HX Cerebrovascular Accident: Yes (1997) Hx Dementia: Yes - HEENT Hx HEENT Problems: Yes - RENAL Hx Chronic Kidney Disease: No - ENDOCRINE/METABOLIC Hx Endocrine Disorders: No - HEMATOLOGICAL/ONCOLOGICAL Hx Blood Disorders: No Hx AIDS: No Hx Human Immunodeficiency Virus (HIV): No - INTEGUMENTARY Hx Dermatological Problems: No - MUSCULOSKELETAL/RHEUMATOLOGICAL Hx Musculoskeletal Disorders: Yes Hx Falls: Yes Hx Unsteady Gait: Yes - GASTROINTESTINAL Hx Gastrointestinal Disorders: No - GENITOURINARY/GYNECOLOGICAL Hx Genitourinary Disorders: Yes Hx Incontinence: Yes - PSYCHIATRIC Hx Psychophysiologic Disorder: No Hx Substance Use: No - SURGICAL HISTORY Hx Surgeries: No - ANESTHESIA Hx Anesthesia: No Hx Anesthesia Reactions: No Hx Malignant Hyperthermia: No Has any member of the family had a problem w/ anesthesia?: No Meds Allergies/Adverse Reactions: Allergies Allergy/AdvReac Type Severity Reaction Status Date / Time No Known Allergies Allergy Verified 05/09/18 18:04 - Medications Medications: Current Medications Amlodipine Besylate (Norvasc) 10 mg PO DAILY [facility] Last Admin: 11/01/18 08:37 Dose: 10 mg Atorvastatin Calcium (Lipitor) 10 mg PO HS [facility] Last Admin: 10/31/18 21:15 Dose: 10 mg Clopidogrel Bisulfate (Plavix) 75 mg PO DAILY [facility] Last Admin: 11/01/18 08:37 Dose: 75 mg Docusate Sodium (Colace) 100 mg PO DAILY [facility] Last Admin: 11/01/18 08:37 Dose: 100 mg Donepezil HCl (Aricept) 10 mg PO HS [facility] Enoxaparin Sodium (Lovenox) 40 mg SC DAILY [facility]; Protocol Last Admin: 11/01/18 08:38 Dose: 40 mg Ciprofloxacin (Cipro 400mg/200ml Dsw) 400 mg in 200 mls @ 200 mls/hr IVPB Q12 REAL; Protocol Last Admin: 11/01/18 08:38 Dose: 200 mls/hr Metronidazole (Flagyl 500mg/100ml Ns) 100 mls @ 100 mls/hr IVPB Q8 REAL; Protocol Last Admin: 11/01/18 08:39 Dose: 100 mls/hr Lactobacillus Acidophilus (Bacid Acidophilus) 1 cap PO BID [facility] Last Admin: 11/01/18 08:37 Dose: 1 cap Results - Vital Signs Recent Vital Signs: Last Vital Signs Temp 98.2 F 11/01/18 08:18 Pulse 69 11/01/18 08:37 Resp 20 11/01/18 08:18 BP 153/91 H 11/01/18 08:37 Pulse Ox 100 11/01/18 08:18 - Labs Result Diagrams: 10/31/18 12:49 10/31/18 12:49 Labs: Laboratory Results - last 24 hr 10/31/18 10/31/18 12:49 12:49 WBC 6.9 RBC 4.56 Hgb 13.9 Hct 41.2 MCV 90.4 MCH 30.4 MCHC 33.6 RDW 14.1 Plt Count 180 Sodium 135 Potassium 3.3 L Chloride 101 Carbon Dioxide 27 Anion Gap 10 BUN 9 Creatinine 0.9 Est GFR ( Amer) > 60 Est GFR (Non-Af Amer) > 60 Random Glucose 114 H Calcium 9.2 Assessment & Plan - Assessment and Plan (Free Text) Assessment: delirium major neurocognitive disorder Plan: ativan 0.25 mg bid q12 prn for agitation restart aricept 10mg qhs l
--- NOTE | 2018-11-01 18:01 | MRI ---
Date of service: 11/01/2018 PROCEDURE: MRI BRAIN WITHOUT CONTRAST HISTORY: chronic infarcts on CT head; delirium COMPARISON: Head CT without contrast 10/29/2018 and brain MRI without contrast 12/09/2009. TECHNIQUE: Multiplanar, multisequence MR images of the brain were obtained without intravenous contrast enhancement. FINDINGS: HEMORRHAGE: No acute hemorrhage products are identified throughout the brain although prior hemosiderin from prior hemorrhage is noted at the left basal ganglia. Punctate hemosiderin deposits are seen at the bilateral thalami left temporal and frontal lobes which are nonspecific but could reflect old hemorrhage as well with a few scattered cavernoma not excluded. DWI: No acute or subacute brain infarction is identified. Bilateral thalamic and basal ganglia chronic lacune is are identified appear relatively numerous BRAIN PARENCHYMA: Good corticomedullary differentiation is seen. Reiterated diffuse cerebral atrophy and chronic microangiopathy. Cerebellar atrophy as well as potentially the martin may be greater than that at the cyst the cerebrum and therefore could reflect olivopontomedullary atrophy. No suspicious extra-axial fluid collection is identified and the midline brain anatomy appears grossly nonfocal as imaged. No mass effect identified. VENTRICLES: Unremarkable. No hydrocephalus. CRANIUM: Unremarkable. ORBITS: Grossly unremarkable. PARANASAL SINUSES/MASTOIDS: Clear VASCULAR SYSTEM: Skull base flow voids intact. OTHER FINDINGS: None. IMPRESSION: 1. 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 Punctate hemosiderin deposits are infrequently scattered at the left cerebral hemisphere greater than right and at the left cerebellum potentially reflecting posttraumatic prior hemorrhage versus multiple cavernomas with amyloid angiopathy felt to be less likely. Clinically correlate further. 2. 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 Clinically correlate further. 3. Age-related neuro degenerative findings as discussed above.
[2018-11-02] MEDS: metroNIDAZOLE 500mg/100ml NS 100 ML IVPB SCH ×3 (00:09→16:32)
[2018-11-02] MEDS: Lactobacillus Acidophilus 500 MU Cap PO SCH ×2 (08:50→16:31)
[2018-11-02] MEDS: Enoxaparin 40 mg Syringe SC SCH (08:51)
[2018-11-02] MEDS: Ciprofloxacin 400mg/200ml D5W 400 MG/200 ML BAG IVPB SCH ×2 (08:52→22:12)
[2018-11-03] MEDS: metroNIDAZOLE 500mg/100ml NS 100 ML IVPB SCH ×3 (00:34→12:26)
--- NOTE | 2018-11-03 05:07 | CP.PCM.PN ---
Subjective - Date & Time of Evaluation Date of Evaluation: 10/31/18 Objective - Vital Signs/Intake and Output Vital Signs (last 24 hours): Temp Pulse Resp BP Pulse Ox 98.5 F 64 19 145/75 99 11/03/18 00:39 11/03/18 00:39 11/03/18 00:39 11/03/18 00:39 11/03/18 00:39 - Medications Medications: Current Medications Amlodipine Besylate (Norvasc) 10 mg PO DAILY [facility] Last Admin: 11/02/18 08:50 Dose: 10 mg Atorvastatin Calcium (Lipitor) 10 mg PO HS [facility] Last Admin: 11/02/18 22:13 Dose: 10 mg Clopidogrel Bisulfate (Plavix) 75 mg PO DAILY [facility] Last Admin: 11/02/18 08:50 Dose: 75 mg Docusate Sodium (Colace) 100 mg PO DAILY [facility] Last Admin: 11/02/18 08:50 Dose: 100 mg Donepezil HCl (Aricept) 10 mg PO HS [facility] Last Admin: 11/02/18 22:13 Dose: 10 mg Enoxaparin Sodium (Lovenox) 40 mg SC DAILY [facility]; Protocol Last Admin: 11/02/18 08:51 Dose: 40 mg Ciprofloxacin (Cipro 400mg/200ml Dsw) 400 mg in 200 mls @ 200 mls/hr IVPB Q12 [facility]; Protocol Last Admin: 11/02/18 22:12 Dose: 200 mls/hr Metronidazole (Flagyl 500mg/100ml Ns) 100 mls @ 100 mls/hr IVPB Q8 [facility]; Protocol Last Admin: 11/03/18 00:34 Dose: 100 mls/hr Lactobacillus Acidophilus (Bacid Acidophilus) 1 cap PO BID [facility] Last Admin: 11/02/18 16:31 Dose: 1 cap Lorazepam (Ativan) 0.25 mg PO Q12 PRN PRN Reason: Agitation - Labs Labs: 10/31/18 12:49 10/31/18 12:49 PT 11.5 Seconds (9.8-13.1) 10/29/18 14:29 INR 1.0 10/29/18 14:29 APTT 38.7 Seconds (25.6-37.1) H 10/29/18 14:29 Assessment and Plan (1) Colitis Status: Acute (2) Dehydration Status: Acute (3) General weakness Status: Acute (4) Dementia Status: Chronic (5) HTN (hypertension) Status: Chronic (6) Hypercholesteremia Status: Chronic
--- NOTE | 2018-11-03 05:08 | CP.PCM.PN ---
Subjective - Date & Time of Evaluation Date of Evaluation: 11/01/18 Objective - Vital Signs/Intake and Output Vital Signs (last 24 hours): Temp Pulse Resp BP Pulse Ox 98.5 F 64 19 145/75 99 11/03/18 00:39 11/03/18 00:39 11/03/18 00:39 11/03/18 00:39 11/03/18 00:39 - Medications Medications: Current Medications Amlodipine Besylate (Norvasc) 10 mg PO DAILY [facility] Last Admin: 11/02/18 08:50 Dose: 10 mg Atorvastatin Calcium (Lipitor) 10 mg PO HS [facility] Last Admin: 11/02/18 22:13 Dose: 10 mg Clopidogrel Bisulfate (Plavix) 75 mg PO DAILY [facility] Last Admin: 11/02/18 08:50 Dose: 75 mg Docusate Sodium (Colace) 100 mg PO DAILY [facility] Last Admin: 11/02/18 08:50 Dose: 100 mg Donepezil HCl (Aricept) 10 mg PO HS [facility] Last Admin: 11/02/18 22:13 Dose: 10 mg Enoxaparin Sodium (Lovenox) 40 mg SC DAILY [facility]; Protocol Last Admin: 11/02/18 08:51 Dose: 40 mg Ciprofloxacin (Cipro 400mg/200ml Dsw) 400 mg in 200 mls @ 200 mls/hr IVPB Q12 [facility]; Protocol Last Admin: 11/02/18 22:12 Dose: 200 mls/hr Metronidazole (Flagyl 500mg/100ml Ns) 100 mls @ 100 mls/hr IVPB Q8 [facility]; Protocol Last Admin: 11/03/18 00:34 Dose: 100 mls/hr Lactobacillus Acidophilus (Bacid Acidophilus) 1 cap PO BID [facility] Last Admin: 11/02/18 16:31 Dose: 1 cap Lorazepam (Ativan) 0.25 mg PO Q12 PRN PRN Reason: Agitation - Labs Labs: 10/31/18 12:49 10/31/18 12:49 PT 11.5 Seconds (9.8-13.1) 10/29/18 14:29 INR 1.0 10/29/18 14:29 APTT 38.7 Seconds (25.6-37.1) H 10/29/18 14:29 Assessment and Plan (1) Colitis Status: Acute (2) Dehydration Status: Acute (3) General weakness Status: Acute (4) Dementia Status: Chronic (5) HTN (hypertension) Status: Chronic (6) Hypercholesteremia Status: Chronic
--- NOTE | 2018-11-03 05:09 | CP.PCM.PN ---
Subjective - Date & Time of Evaluation Date of Evaluation: 11/02/18 Objective - Vital Signs/Intake and Output Vital Signs (last 24 hours): Temp Pulse Resp BP Pulse Ox 98.5 F 64 19 145/75 99 11/03/18 00:39 11/03/18 00:39 11/03/18 00:39 11/03/18 00:39 11/03/18 00:39 - Medications Medications: Current Medications Amlodipine Besylate (Norvasc) 10 mg PO DAILY [facility] Last Admin: 11/02/18 08:50 Dose: 10 mg Atorvastatin Calcium (Lipitor) 10 mg PO HS [facility] Last Admin: 11/02/18 22:13 Dose: 10 mg Clopidogrel Bisulfate (Plavix) 75 mg PO DAILY [facility] Last Admin: 11/02/18 08:50 Dose: 75 mg Docusate Sodium (Colace) 100 mg PO DAILY [facility] Last Admin: 11/02/18 08:50 Dose: 100 mg Donepezil HCl (Aricept) 10 mg PO HS [facility] Last Admin: 11/02/18 22:13 Dose: 10 mg Enoxaparin Sodium (Lovenox) 40 mg SC DAILY [facility]; Protocol Last Admin: 11/02/18 08:51 Dose: 40 mg Ciprofloxacin (Cipro 400mg/200ml Dsw) 400 mg in 200 mls @ 200 mls/hr IVPB Q12 [facility]; Protocol Last Admin: 11/02/18 22:12 Dose: 200 mls/hr Metronidazole (Flagyl 500mg/100ml Ns) 100 mls @ 100 mls/hr IVPB Q8 [facility]; Protocol Last Admin: 11/03/18 00:34 Dose: 100 mls/hr Lactobacillus Acidophilus (Bacid Acidophilus) 1 cap PO BID [facility] Last Admin: 11/02/18 16:31 Dose: 1 cap Lorazepam (Ativan) 0.25 mg PO Q12 PRN PRN Reason: Agitation - Labs Labs: 10/31/18 12:49 10/31/18 12:49 PT 11.5 Seconds (9.8-13.1) 10/29/18 14:29 INR 1.0 10/29/18 14:29 APTT 38.7 Seconds (25.6-37.1) H 10/29/18 14:29 Assessment and Plan (1) Colitis Status: Acute (2) Dehydration Status: Acute (3) General weakness Status: Acute (4) Dementia Status: Chronic (5) HTN (hypertension) Status: Chronic (6) Hypercholesteremia Status: Chronic
[2018-11-03 08:38] VITALS: BP 161/73; PULSE 61; RESP 20; TEMP 97.3; O2SAT 98
[2018-11-03] MEDS: Enoxaparin 40 mg Syringe SC SCH (09:06)
[2018-11-03] MEDS: Lactobacillus Acidophilus 500 MU Cap PO SCH (09:08)
[2018-11-03] MEDS: Ciprofloxacin 400mg/200ml D5W 400 MG/200 ML BAG IVPB SCH ×2 (09:09→12:24)
--- NOTE | 2018-11-04 23:39 | CP.PCM.DIS ---
Provider - Provider Date of Admission: 10/31/18 15:45 Attending physician: Perry Feliz MD Consults: 10/29/18 20:48 Surgery [General Surgery Consult] Stat Comment: Consulting Provider: Angel Vasquez Consulting Physician: Angel Vasquez Reason for Consult: abdominal pain 10/30/18 01:51 Case Management Referral Routine Comment: Physician Instructions: Reason For Exam: Reason for Referral: Discharge Planning Nursing Referral for Wound Care Routine Comment: Physician Instructions: Reason For Exam: low irene score Social Work Referral Routine Comment: 3 supportive children Physician Instructions: Reason For Exam: lives alone w [employer] services 10/31/18 15:47 Psychiatry Consult Routine Comment: Consulting Provider: Lazaro Mejia Consulting Physician: Lazaro Mejia Reason for Consult: Dementia, increase confusion Time Spent in preparation of Discharge (in minutes): 25 Diagnosis - Discharge Diagnosis (1) Colitis Status: Acute (2) Dehydration Status: Acute (3) General weakness Status: Acute (4) Dementia Status: Chronic Priority: Medium (5) HTN (hypertension) Status: Chronic Priority: Medium (6) Hypercholesteremia Status: Chronic Priority: Medium Hospital Course - Lab Results Lab Results: Micro Results 10/30/18 14:30 Blood Blood Culture - Final NO GROWTH AFTER 5 DAYS 10/30/18 14:30 Blood Gram Stain - Final TEST NOT PERFORMED 10/30/18 14:30 Blood Blood Culture - Final NO GROWTH AFTER 5 DAYS 10/30/18 14:30 Blood Gram Stain - Final TEST NOT PERFORMED Most Recent Lab Values WBC 6.9 K/uL (4.8-10.8) 10/31/18 12:49 RBC 4.56 Mil/uL (3.80-5.20) 10/31/18 12:49 Hgb 13.9 g/dL (12.0-16.0) 10/31/18 12:49 Hct 41.2 % (34.0-47.0) 10/31/18 12:49 MCV 90.4 fl (81.0-99.0) 10/31/18 12:49 MCH 30.4 pg (27.0-31.0) 10/31/18 12:49 MCHC 33.6 g/dL (33.0-37.0) 10/31/18 12:49 RDW 14.1 % (11.5-14.5) 10/31/18 12:49 Plt Count 180 K/uL (130-400) 10/31/18 12:49 MPV 10.9 fl (7.2-11.7) 10/29/18 14:29 Neut % (Auto) 67.4 % (50.0-75.0) 10/29/18 14:29 Lymph % (Auto) 20.3 % (20.0-40.0) 10/29/18 14:29 Tompkins % (Auto) 8.7 % (0.0-10.0) 10/29/18 14:29 Eos % (Auto) 2.5 % (0.0-4.0) 10/29/18 14:29 Baso % (Auto) 1.1 % (0.0-2.0) 10/29/18 14:29 Neut # (Auto) 4.3 K/uL (1.8-7.0) 10/29/18 14:29 Lymph # (Auto) 1.3 K/uL (1.0-4.3) 10/29/18 14:29 Tompkins # (Auto) 0.6 K/uL (0.0-0.8) 10/29/18 14:29 Eos # (Auto) 0.2 K/uL (0.0-0.7) 10/29/18 14:29 Baso # (Auto) 0.1 K/uL (0.0-0.2) 10/29/18 14:29 PT 11.5 Seconds (9.8-13.1) 10/29/18 14:29 INR 1.0 10/29/18 14:29 APTT 38.7 Seconds (25.6-37.1) H 10/29/18 14:29 Sodium 135 mmol/l (132-148) 10/31/18 12:49 Potassium 3.3 MMOL/L (3.6-5.0) L 10/31/18 12:49 Chloride 101 mmol/L (98-107) 10/31/18 12:49 Carbon Dioxide 27 mmol/L (22-30) 10/31/18 12:49 Anion Gap 10 (10-20) 10/31/18 12:49 BUN 9 mg/dl (7-17) 10/31/18 12:49 Creatinine 0.9 mg/dl (0.7-1.2) 10/31/18 12:49 Est GFR ( Amer) > 60 10/31/18 12:49 Est GFR (Non-Af Amer) > 60 10/31/18 12:49 POC Glucose (mg/dL) 94 mg/dL (65-110) 10/29/18 14:19 Random Glucose 114 mg/dL (65-105) H 10/31/18 12:49 Calcium 9.2 mg/dL (8.4-10.2) 10/31/18 12:49 Total Bilirubin 0.8 mg/dl (0.2-1.3) 10/29/18 14:29 AST 18 U/L (14-36) 10/29/18 14:29 ALT 21 U/L (9-52) 10/29/18 14:29 Alkaline Phosphatase 100 U/L (38-126) 10/29/18 14:29 Total Protein 7.5 G/DL (6.3-8.2) 10/29/18 14:29 Albumin 4.0 g/dL (3.5-5.0) 10/29/18 14:29 Globulin 3.5 gm/dL (2.2-3.9) 10/29/18 14:29 Albumin/Globulin Ratio 1.1 (1.0-2.1) 10/29/18 14:29 Lipase 41 U/L (23-300) 10/29/18 14:29 Urine Color Yellow (YELLOW) 10/29/18 16:10 Urine Clarity Cloudy (Clear) 10/29/18 16:10 Urine pH 6.0 (5.0-8.0) 10/29/18 16:10 Ur Specific [place] 1.024 (1.003-1.030) 10/29/18 16:10 Urine Protein 30 mg/dL (NEGATIVE) 10/29/18 16:10 Urine Glucose (UA) Neg mg/dL (NEGATIVE) 10/29/18 16:10 Urine Ketones Trace mg/dL (NEGATIVE) 10/29/18 16:10 Urine Blood Negative (NEGATIVE) 10/29/18 16:10 Urine Nitrate Negative (NEGATIVE) 10/29/18 16:10 Urine Bilirubin Negative (NEGATIVE) 10/29/18 16:10 Urine Urobilinogen 2.0 mg/dL (0.2-1.0) H 10/29/18 16:10 Ur Leukocyte Esterase Small Elva/uL (Negative) 10/29/18 16:10 Urine Microscopic WBC 5 /hpf (0-5) 10/29/18 16:10 Ur Squamous Epith Cells 3 /hpf (0-5) 10/29/18 16:10 Amorphous Sediment Rare /ul (<OCC) H 10/29/18 16:10 Hyaline Casts >20 /hpf (0-2) H 10/29/18 16:10 C. difficile Ag & Toxin Negative (NEGATIVE) 10/30/18 19:15 Discharge Exam - Head Exam Head Exam: ATRAUMATIC, NORMOCEPHALIC Discharge Plan - Follow Up Plan Condition: STABLE Disposition: TRANSF TO SNF Instructions: Dehydration, Adult (DC), Colitis (DC) Additional Instructions: follow up with primary MD 1 week Referrals: Rubén Pedraza JD, MD [Family Provider] - Angel Vasquez MD [Staff Provider] -
--- NOTE | 2018-11-14 14:45 | PQF ---
PROVIDER RESPONSE TEXT: Provider was unable to determine a response for this query. REVIEWER QUERY TEXT: Clarification of Clinical Diagnostic Findings Please clarify if there are any additional diagnoses to go along with the 10/29: Head CT report: Pre viously noted hematoma left basal nuclei resolved with residual encephalomalacia. .Moderate to signif icant diffuse and confluent chronic white matter ischemic changes seen extending peripherally into th e deep and subcortical white matter both cerebral hemispheres. Multiple chronic bilateral basal nucl ei lacunar type infarcts also present. Note that the possibility of a small hyperacute infarct cannot be excluded. Moderate to significant atrophy with more localized and more significant posterior fossa atrophic ch anges. OR: Disagree ER draft note: CC: AMS H and P: dxs. include; 1) Colitis Status: Acute (2) Dehydration Status: Acute (3) General weakness St atus: Acute (4) Dementia Status: Chronic Psych consult : reason for consult: Dementia, increased confusion The patient's Clinical Indicators include: --- Query created by: Suzanne Ovalle on 11/01/2018 9:33 AM Electronically signed by: Perry Feliz MD 11/14/2018 2:42 PM
--- NOTE | 2018-11-14 14:45 | PQF ---
PROVIDER RESPONSE TEXT: Provider was unable to determine a response for this query. REVIEWER QUERY TEXT: Clarification of Clinical Diagnostic Findings Please clarify the type of Colitis if known: i.e.: infectious, allergic, eosinophilic, drug-induced, ischemic, pseudomembranous, regional, and ulcerative, toxic etc. OR: Unable to determine H and P: dxs. include: 1) Colitis Status: Acute (2) Dehydration Status: Acute (3) General weakness Status: Acute (4) Dementia Status: Chronic Priority: Medium The patient's Clinical Indicators include: --- Query created by: Suzanne Ovalle on 11/01/2018 9:49 AM Electronically signed by: Perry Feliz MD 11/14/2018 2:42 PM
--- NOTE | 2018-11-14 14:45 | PQF ---
PROVIDER RESPONSE TEXT: Patient is underweight REVIEWER QUERY TEXT: Clarification of Clinical Diagnostic Findings Please clarify if you are in agreement with the RD documentation of Underweight? OR: Other explanation of clinical finding OR: Unable to determine Listed in the EMR: BMI:16.3 5ft 4in [address] note: BMI:16.2 Underweight H and P: diagnoses include; Colitis, Dehydration, Dementia, Generalized weakness Nutrition Intervention: Ensure clear TID, monitor po intake, diet tolerance, pertinent labs, weight s tatus The patient's Clinical Indicators include: --- Query created by: Suzanne Ovalle on 11/01/2018 9:27 AM Electronically signed by: Perry Feliz MD 11/14/2018 2:42 PM
== END 2018-11-03 13:44 | DRG 392 ==
LOC: H.ER 13:06 → H.ERHOLD 15:45 → H.MEDSURG1 10-30 00:06 → OBSVTOIN 10-31 15:45 → H.MEDSURG1 10-31 16:55
PROVIDERS: ADMIT Internal Medicine; ATTEND Internal Medicine
DX: K52.9 Noninfective gastroenteritis and colitis, unspecified (principal); I69.351 Hemiplegia and hemiparesis following cerebral infarction affecting right dominant side; Z68.1 Body mass index [BMI] 19.9 or less, adult; E86.0 Dehydration; K80.20 Calculus of gallbladder without cholecystitis without obstruction; F01.50 Vascular dementia, unspecified severity, without behavioral disturbance, psychotic disturbance, mood disturbance, and anxiety; E27.8 Other specified disorders of adrenal gland; R53.1 Weakness; R29.6 Repeated falls; I10 Essential (primary) hypertension; R41.0 Disorientation, unspecified; E78.5 Hyperlipidemia, unspecified; E78.00 Pure hypercholesterolemia, unspecified; N28.1 Cyst of kidney, acquired; R63.6 Underweight; Z60.2 Problems related to living alone; Z79.02 Long term (current) use of antithrombotics/antiplatelets

== ENCOUNTER 2019-03-02 12:39 | Emergency (ER) | payer MEDICARE, MEDICAID ==
[2019-03-02 12:39] VITALS: BMI 19.3
[2019-03-02 13:14] VITALS: RESP 18
--- NOTE | 2019-03-02 13:24 | ED PDOC ---
HPI: Hypertension/Hypotension Time Seen by Provider: 03/02/19 12:50 Chief Complaint (Nursing): High Blood Pressure Chief Complaint (Provider): High Blood Pressure History Per: Patient History/Exam Limitations: no limitations Onset/Duration Of Symptoms: Days (x 1) Current Symptoms Are (Timing): Still Present Quality Of Symptoms: Asymptomatic Additional Complaint(s): 73 year old female with HTN, dementia and CVA with residual right sided deficits presents to the ED for evaluation of high blood pressure. Patient had her blood pressure taken by her home health aide this morning and was told to come here because it was elevated. She is currently asymptomatic. PMD: none provided Past Medical History Reviewed: Historical Data, Nursing Documentation, Vital Signs Vital Signs: Last Vital Signs Temp 98.4 F 03/02/19 12:46 Pulse 61 03/02/19 13:14 Resp 18 03/02/19 13:14 BP 186/112 H 03/02/19 13:14 Pulse Ox 98 03/02/19 13:14 Primary Care Provider: Non [facility] Provider, - Medical History PMH: CVA, Dementia, HTN, Hypercholesterolemia Denies: Depression, HIV, Chronic Kidney Disease - Surgical History Surgical History: No Surg Hx - Family History Family History: States: Unknown Family Hx - Immunization History Hx Tetanus Toxoid Vaccination: No Hx Influenza Vaccination: No Hx Pneumococcal Vaccination: No - Home Medications Home Medications: Ambulatory Orders Medication Instructions Recorded Simvastatin 20 mg PO HS 11/27/13 amLODIPine 10 mg PO DAILY 11/27/13 Clopidogrel [Plavix] 75 mg PO DAILY tab 05/20/18 amLODIPine [Norvasc] 10 mg PO DAILY tab 05/20/18 Docusate [Colace] 100 mg PO DAILY cap 11/03/18 Donepezil [Aricept] 10 mg PO HS tab 11/03/18 Enoxaparin [Lovenox] 40 mg SC DAILY syr 11/03/18 LORazepam [Ativan] 0.25 mg PO Q12 PRN tab 11/03/18 Lactobacillus Acidophilus [Bacid 1 cap PO BID cap 11/03/18 Acidophilus] metroNIDAZOLE [Flagyl] 500 mg PO Q8 tab 11/03/18 - Allergies Allergies/Adverse Reactions: Allergies Allergy/AdvReac Type Severity Reaction Status Date / Time No Known Allergies Allergy Verified 03/02/19 12:46 Review of Systems ROS Statement: Except As Marked, All Systems Reviewed And Found Negative Physical Exam - Reviewed Nursing Documentation Reviewed: Yes Vital Signs Reviewed: Yes - Physical Exam Appears: Positive for: Non-toxic, No Acute Distress Head Exam: Positive for: ATRAUMATIC, NORMAL INSPECTION, NORMOCEPHALIC Skin: Positive for: Normal Color, Warm, Dry Eye Exam: Positive for: EOMI, Normal appearance, PERRL Neck: Positive for: Normal, Painless ROM, Supple Cardiovascular/Chest: Positive for: Regular Rate, Rhythm. Negative for: Murmur Respiratory: Positive for: Normal Breath Sounds. Negative for: Respiratory Distress Gastrointestinal/Abdominal: Positive for: Normal Exam, Soft. Negative for: Tenderness Back: Positive for: Normal Inspection. Negative for: L CVA Tenderness, R CVA Tenderness Extremity: Positive for: Normal ROM. Negative for: Deformity Neurological/Psych: Positive for: Awake, Alert, Normal Tone, Motor/Sensory Deficits (residual deficit 4/5 strength in right arm), Facial Droop (mild right as residual deficit) - Laboratory Results Result Diagrams: 03/02/19 14:04 03/02/19 13:34 - ECG O2 Sat by Pulse Oximetry: 98 (RA) Pulse Ox Interpretation: Normal - Progress Re-evaluation Time: 16:57 Condition: Re-examined, Improved Medical Decision Making Medical Decision Makin:21 Impression: asymptomatic HTN Initial Plan: --Lisinopril 10 mg PO --CBC --CMP Scribe Attestation: Documented by Marah Ballesteros, acting as a scribe for Cathy Wan MD. Provider Scribe Attestation: All medical record entries made by the Scribe were at my direction and personally dictated by me. I have reviewed the chart and agree that the record accurately reflects my personal performance of the history, physical exam, medical decision making, and the department course for this patient. I have also personally directed, reviewed, and agree with the discharge instructions and disposition. Disposition - Clinical Impression Clinical Impression: HTN (hypertension) - Patient ED Disposition Is Patient to be Admitted: No Counseled Patient/Family Regarding: Studies Performed, Diagnosis, Need For Followup - Disposition Disposition: Routine/Home Disposition Time: 16:57 Additional Instructions: SURESH CHA, thank you for letting us take care of you today. Your provider was Cathy Wan MD and you were treated for HYPERTENSION. The emergency medical care you received today was directed at your acute symptoms. If you were prescribed any medication, please fill it and take as directed. It may take several days for your symptoms to resolve. Return to the Emergency Department if your symptoms worsen, do not improve, or if you have any other problems. Please contact your doctor or call one of the physicians/clinics you have been referred to that are listed on the Patient Visit Information form that is included in your discharge packet. Bring any paperwork you were given at discharge with you along with any medications you are taking to your follow up visit. Our treatment cannot replace ongoing medical care by a primary care provider outside of the emergency department. Thank you for allowing the [facility] team to be part of your care today. If you had an X-Ray or CT scan: A Radiologist will review the ED reading if any change in treatment is needed we will contact you. If you had a blood, urine, or wound culture: It will take several days for the results, if any change in treatment is needed we will contact you. Instructions: High Blood Pressure in Adults Forms: [employer] ([place])
[2019-03-02 14:38] LABS: BASO # 0.1 K/uL (0.0-0.2); EOS # 0.2 K/uL (0.0-0.7); EOS % 2.9 % (0.0-4.0); HEMOGLOBIN 13.9 g/dL (12.0-16.0); LYMPH # 1.7 K/uL (1.0-4.3); MEAN CELL VOLUME 90.8 fl (81.0-99.0); MEAN CORPUSCULAR HEMOGLOBIN 31.2 pg (27.0-31.0); MEAN CORPUSCULAR HGB CONC 34.3 g/dL (33.0-37.0); MEAN PLATELET VOLUME 10.3 fl (7.2-11.7); MONO # 0.7 K/uL (0.0-0.8); MONO % 9.8 % (0.0-10.0); NEUT # 4.2 K/uL (1.8-7.0); NEUT % 61.3 % (50.0-75.0); RBC 4.45 Mil/uL (3.80-5.20); RED CELL DISTRIBUTION WIDTH 13.4 % (11.5-14.5); WHITE BLOOD COUNT 6.9 K/uL (4.8-10.8)
[2019-03-02 15:10] LABS: CALCIUM 9.5 mg/dL (8.4-10.2)
[2019-03-02 17:09] VITALS: TEMP 98
[2019-03-02 21:43] VITALS: BP 160/84; PULSE 64; O2SAT 99
== END 2019-03-02 18:00 | disposition home or self-care (01) ==
LOC: H.ER 12:39
DX: I10 Essential (primary) hypertension (principal); F03.90 Unspecified dementia, unspecified severity, without behavioral disturbance, psychotic disturbance, mood disturbance, and anxiety; Z86.73 Personal history of transient ischemic attack (TIA), and cerebral infarction without residual deficits; E78.00 Pure hypercholesterolemia, unspecified